=== PATIENT | male | born 1940 | race Caucasian/White ===

== ENCOUNTER 2019-03-06 00:05 | Inpatient (IN) | payer MEDICARE, OTHER, SELFPAY | END 2019-03-08 20:00 | disposition home health service (06) | DRG 872 | LOC: MEDSURG 03-08 09:00 | PROVIDERS: Admitting Provider Internal Medicine; Emergency Provider Emergency Medicine; Family Provider Family Medicine; PCP Family Medicine; Referring Provider Internal Medicine; Visit Provider Internal Medicine | DX: A41.9 Sepsis, unspecified organism (principal); N17.9 Acute kidney failure, unspecified; L03.116 Cellulitis of left lower limb; M86.8X7 Other osteomyelitis, ankle and foot; L03.115 Cellulitis of right lower limb; I10 Essential (primary) hypertension; I25.10 Atherosclerotic heart disease of native coronary artery without angina pectoris; Z95.5 Presence of coronary angioplasty implant and graft; Z79.02 Long term (current) use of antithrombotics/antiplatelets; Z79.82 Long term (current) use of aspirin; N40.0 Benign prostatic hyperplasia without lower urinary tract symptoms; E11.610 Type 2 diabetes mellitus with diabetic neuropathic arthropathy; E11.42 Type 2 diabetes mellitus with diabetic polyneuropathy; Z87.891 Personal history of nicotine dependence; E66.9 Obesity, unspecified; Z68.34 Body mass index [BMI] 34.0-34.9, adult ==

== ENCOUNTER 2019-06-02 09:27 | Outpatient (RCR) | payer MEDICARE, SELFPAY | END 2019-06-07 23:59 | disposition home or self-care (01) | LOC: WOUND 09:27 | PROVIDERS: Family Provider Family Medicine; PCP Family Medicine; Visit Provider Nurse Practitioner Family | DX: E11.621 Type 2 diabetes mellitus with foot ulcer (principal); L97.512 Non-pressure chronic ulcer of other part of right foot with fat layer exposed | CPT/HCPCS: 11042; 87070; 87077; 87176; 87186; 87205; 99203; 99214; G0463 ==

== ENCOUNTER 2019-07-07 08:46 | Outpatient (RCR) | payer MEDICARE, SELFPAY | END 2019-07-07 23:59 | disposition home or self-care (01) | LOC: WOUND 08:46 | PROVIDERS: Family Provider Family Medicine; PCP Family Medicine; Visit Provider Nurse Practitioner Family | DX: E11.621 Type 2 diabetes mellitus with foot ulcer (principal); L97.512 Non-pressure chronic ulcer of other part of right foot with fat layer exposed; E11.42 Type 2 diabetes mellitus with diabetic polyneuropathy; K21.9 Gastro-esophageal reflux disease without esophagitis; I25.10 Atherosclerotic heart disease of native coronary artery without angina pectoris; I10 Essential (primary) hypertension | CPT/HCPCS: 11042; 80053; 80061; 83036; 87070; 87077; 87186; 87205 ==

== ENCOUNTER 2019-07-14 08:52 | Outpatient (CLI) | payer MEDICARE, SELFPAY | END 2019-07-14 08:53 | disposition home or self-care (01) | LOC: WOUND 08:53 | PROVIDERS: Family Provider Family Medicine; PCP Family Medicine; Visit Provider Nurse Practitioner Family | DX: E11.621 Type 2 diabetes mellitus with foot ulcer (principal); L97.522 Non-pressure chronic ulcer of other part of left foot with fat layer exposed | CPT/HCPCS: 11042; G0463 ==

== ENCOUNTER 2019-07-21 09:59 | Outpatient (CLI) | payer MEDICARE, SELFPAY | END 2019-07-21 10:00 | disposition home or self-care (01) | LOC: WOUND 10:00 | PROVIDERS: Family Provider Family Medicine; PCP Family Medicine; Visit Provider Nurse Practitioner Family | DX: E11.621 Type 2 diabetes mellitus with foot ulcer (principal); L97.522 Non-pressure chronic ulcer of other part of left foot with fat layer exposed | CPT/HCPCS: G0463 ==

== ENCOUNTER 2019-08-04 08:55 | Outpatient (CLI) | payer MEDICARE, SELFPAY | END 2019-08-04 08:56 | disposition home or self-care (01) | LOC: WOUND 08:57 | PROVIDERS: Family Provider Family Medicine; PCP Family Medicine; Visit Provider Nurse Practitioner Family | DX: E11.621 Type 2 diabetes mellitus with foot ulcer (principal); L97.522 Non-pressure chronic ulcer of other part of left foot with fat layer exposed | CPT/HCPCS: 11042; 87070; 87077; 87176; 87186; 87205 ==

== ENCOUNTER 2019-08-12 09:31 | Outpatient (CLI) | payer MEDICARE, SELFPAY ==
--- NOTE | 2019-08-12 10:49 | XR_ITS ---
WS: [id number] XR foot LT min 3V* [id number] REASON FOR EXAM: PAIN,REDNESS, NONHEALING ULCER, R/O OSTEOMYELITIS FINDINGS: The left foot shows similar changes to the previous findings of March 07, 2019. There is marked reabsorptive changes throughout the tarsals metatarsals and phalanges with heavy arterioscler otic changes. Loss of the support changes of the foot are seen in the findings are consistent with no conrado diabetic neuropathy. Moderately advanced. XR/XR foot LT min 3V* [id number] IMPRESSION: Progressive diabetic neuropathy with reabsorptive changes and heavy arterioscle rotic changes.
== END 2019-08-12 09:32 | disposition home or self-care (01) ==
PROVIDERS: Family Provider Family Medicine; PCP Family Medicine; Visit Provider Nurse Practitioner Family
DX: E11.621 Type 2 diabetes mellitus with foot ulcer (principal); L97.522 Non-pressure chronic ulcer of other part of left foot with fat layer exposed
CPT/HCPCS: 11042; 73630

== ENCOUNTER 2019-08-18 14:01 | Outpatient (CLI) | payer MEDICARE, SELFPAY | END 2019-08-18 14:02 | disposition home or self-care (01) | LOC: WOUND 14:04 | PROVIDERS: Family Provider Family Medicine; PCP Family Medicine; Visit Provider Nurse Practitioner Family | DX: E11.621 Type 2 diabetes mellitus with foot ulcer (principal); L97.522 Non-pressure chronic ulcer of other part of left foot with fat layer exposed | CPT/HCPCS: 11042 ==

== ENCOUNTER 2019-08-23 08:20 | Outpatient (CLI) | payer MEDICARE, SELFPAY ==
--- NOTE | 2019-08-23 09:07 | MR_ITS ---
WS: [id number] INDICATION: Nonhealing ulcer TECHNIQUE: MRI of the left foot without and with gadolinium enhancement. Sagittal PD, axial T1, axial T2, axial STIR, sagittal STIR, sagittal T1, coronal PD, coronal T2 fat sat, and post gadolinium imag ing was obtained. FINDINGS: Comparison radiograph 08/2019. Nonhealing ulcer lateral foot. Diffuse soft tissue edema lower leg and foot worse involving the later al foot. Soft tissue ulceration is visualized with a vitamin E marker. Diffuse subcutaneous enhanceme nt consistent with cellulitis and reactive edema. No drainable abscess or fluid collection. Underlyin g cuboid is normal in appearance. Normal bone marrow signal in the cuboid. Small amount of edema in t he base of the fifth metatarsal with enhancement. Preservation of the normal fatty bone marrow signal . Findings are likely reactive. Early osteomyelitis is not entirely excluded. Otherwise no evidence o f osteomyelitis. Diffuse osteopenia. Diffuse soft tissue edema lower leg and foot subcutaneous soft tissues. Chronic d eformity consistent with Charcot joint involving the hindfoot is similar in appearance to prior exami nations. Fragmentation with flattening of the anterior calcaneus. Charcot joint with destruction of t he tibiotalar joint. Stable deformity of the talonavicular and tibiotalar articulations. Varus deform ity left foot. Plantar calcaneal spurring. MR/MR foot LT wo/w con [id number] IMPRESSION: 1. Soft tissue ulceration overlying the lateral foot at the level of the cuboi d and fifth metatarsal base. 2. Normal bone marrow signal in the cuboid. 3. Edema with a small amount of enhancement in the base of fifth metatarsal li mel reactive with preservation of the normal fatty bone marrow signal. Early o steomyelitis is not entirely excluded. Recommend interval follow-up. 4. No drainable abscess or fluid collection. 5. Diffuse cellulitis. 6. Charcot joint as described above.
== END 2019-08-23 08:21 | disposition home or self-care (01) ==
LOC: RADWPI 08:24
PROVIDERS: Family Provider Family Medicine; PCP Family Medicine; Visit Provider Surgery
DX: L97.429 Non-pressure chronic ulcer of left heel and midfoot with unspecified severity (principal); L03.116 Cellulitis of left lower limb; A52.16 Charcot's arthropathy (tabetic); R60.9 Edema, unspecified; M79.672 Pain in left foot
CPT/HCPCS: 73720; A9579

== ENCOUNTER → 2019-08-24 13:44 | Outpatient (BNVA) | payer MEDICARE, SELFPAY | PROVIDERS: Family Provider Family Medicine; PCP Family Medicine; Visit Provider Internal Medicine Cardiovascular Disease | DX: I10 Essential (primary) hypertension (principal); I25.10 Atherosclerotic heart disease of native coronary artery without angina pectoris | CPT/HCPCS: 80048; 83735; 83880 ==

== ENCOUNTER 2019-08-25 13:25 | Outpatient (CLI) | payer MEDICARE, SELFPAY | END 2019-08-25 13:26 | disposition home or self-care (01) | LOC: WOUND 13:28 | PROVIDERS: Family Provider Family Medicine; PCP Family Medicine; Visit Provider Nurse Practitioner Family | DX: E11.621 Type 2 diabetes mellitus with foot ulcer; L97.529 Non-pressure chronic ulcer of other part of left foot with unspecified severity | CPT/HCPCS: 87070; 87075; 87077; 87186; 87205; G0463 ==

== ENCOUNTER 2019-08-26 10:16 | Day surgery (SDC) | payer MEDICARE, SELFPAY ==
[2019-08-26 10:29] VITALS: BMI 31.6
[2019-08-26 10:41] VITALS: BP 148/81; PULSE 60; RESP 16; TEMP 36.7; O2SAT 97
--- NOTE | 2019-08-26 11:13 | P.ANESASSM_ITS ---
Pre-Anesthetic Assessment Pre-Anesthetic Assessment: Height/Weight: Height 1.85 m Weight 108.862 kg Temp Pulse Resp BP Pulse Ox 98.0 F 60 16 148/81 97 08/26/19 10:41 08/26/19 10:41 08/26/19 10:41 08/26/19 10:41 08/26/19 10:41 Preop Diagnosis: Osteomyelitis left fifth metatarsal Proposed Procedure: Operation Date: 08/26/19 12:25 Proposed Procedures p Incision And Drainage with bone biopsy with pic line insertion [id number] L97.524(Left) - Seferino Norman DPM Last intake: Intake Last Liquid Date 08/25/19 Last Liquid Time 21:00 Last Solid Date 08/25/19 Last Solid Time 18:00 Social: Social History: Tobacco (quit 38 years ago) and No alcohol Exam: Pre-Anes Outpt Exam: alert, oriented x 3, clear to auscultation bilaterally and regular rate & rhythm Airway: Submandibular: WNL Cervical ROM: WNL MP: 2 Dentition: P artials (upper and lower) History/ROS: No significant history except as noted Pulmonary: Pulmonary: None reported CV/HEM: CV/HEM: CAD (2015 stents), HTN and [place] : : None reported Hepatic: Hepatic: None reported GI: GI: GERD (controlled) Metabolic: Metabolic: DM, Hyperlipidemia and Morbid obesity Musc/skel: Musc/skel: None reported Neuropsych: Neuropsych: Neuropathy (hands and feet) Anesthetic Plan: ASA status: 4 Anesthesia: Anesthesia Evaluation and MAC Risk of > 500 ml blood loss (7ml/kg in children): No PFSH Anesthesia PFSH: Medical History BPH (benign prostatic hyperplasia) CAD (coronary artery disease) Charcot's arthropathy Diabetes GERD (gastroesophageal reflux disease) History of amputation of right great toe Hypertension Macular edema Obesity Peripheral neuropathy Renal insufficiency Surgical History H/O eye surgery History of cardiac cath History of coronary artery stent placement Family History Denies family history of Diabetes Dementia Anesthesia complication Cancer Social History Smoking and tobacco status: former smoker Quit status (tobacco): has quit using tobacco Second hand smoke exposure: No Smoking risk assessment/counseling performed?: No Alcohol intake: never Desire information about alcohol rehabilitation?: No Counseling given: No Desire information about substance/drug rehabilitation?: No Counseling given: No Caregiver/support person: Yes Lives independently: Yes Household members: spouse Current occupational status: retired and disabled Current gender identity: Male Data Anesthesia Cardiac Studies: No Data to Display
--- NOTE | 2019-08-26 11:31 | XR_ITS ---
WS: [id number] XR chest 1V portable [id number] REASON FOR EXAM: picc placement FINDINGS: PICC line placement shows a PICC line extending from the right side the tip is seen in the superior vena cava at the level of the fifth rib. The positioning appears to be satisfactory. There is arteriosclerotic changes in the arch of the aorta. The tip of the PICC line is slightly compressed and angulated. XR/XR chest 1V portable [id number] IMPRESSION: PICC line appears to be satisfactory placed in the superior vena cava.
--- NOTE | 2019-08-26 11:45 | ECG_ITS ---
[facility] Test Date: 2019-08-26 Pat Name: Marcus Thompson Department: Room: Gender: Male Sonar Technician: : 1940 Requested By: Jorge L Tong Order Number: [id number] Bhavani MD: Yaya Hanson M.D. Measurements Intervals [place] Rate: 51 P: 49 ID: [id number] QRS: 7 QRSD: 99 T: 18 QT: 452 QTc: 418 Interpretive Statements SINUS BRADYCARDIA Compared to ECG 07/12/2018 19:55:40 No significant changes Electronically Signed On 08-26-2019 13:07:39 CDT by Yaya Hanson M.D. [id number]
[2019-08-26] MEDS: sodium chloride 0.9% 1,000 ML 30 ML IV (12:30)
--- NOTE | 2019-08-26 12:54 | P.HPUD_ITS ---
Surgery/Procedure H&P Update DATE OF PROCEDURE: August 26, 2019 DATE H&P PERFORMED: 08/25/19 H&P UPDATE INFORMATION: I have reviewed H&P completed within last 30 days, I have examined patient prior to procedure, No changes to prior documentation and [place] is [place] [facility] indicated PREOP DIAGNOSIS: Osteomyelitis left fifth metatarsal PLANNED PROCEDURE: Operation Date: 08/26/19 12:25 Proposed Procedures p Incision And Drainage with bone biopsy with pic line insertion [id number] L97.524(Left) - Seferino Norman DPM
[2019-08-26] MEDS: clindamycin 600 MG/50 ML PREMIX 100 MG IV (13:08)
[2019-08-26 13:50] VITALS: BP 123/56; PULSE 49; RESP 18; TEMP 36.7; O2SAT 97
[2019-08-26 14:28] VITALS: BP 154/80; PULSE 62; RESP 18; O2SAT 98
--- NOTE | 2019-08-30 10:40 | P.OP_ITS ---
Operative Report Date of procedure: August 26, 2019 Pre-op Diagnosis: Osteomyelitis left fifth metatarsal Post-op diagnosis: same Post-op Findings: Devitalized soft tissue down to and including bone left foot. Procedure Done: Surgical debridement of left foot wound including epidermis, dermis, subcutaneous tissue, deep fascia and bone CPT code 13269. Bone biopsy left foot fifth metatarsal CPT code 43482 Implants: 3-0 Vicryl Specimens removed/disposition: Left fifth metatarsal base bone sent to microbiology for culture and sensitivity. Deep soft tissue including deep fascia sent to microbiology for culture and sensitivity. Pathology: none sent Surgeon: Seferino Norman D.P.M. Ready To W[employer] Department Manager: [place] Anesthesia: MAC Estimated blood loss: 10 cc Tourniquet time: No tourniquet utilized IV fluids: None Urine output: None Complications: None Findings: Full-thickness wound left foot exposed bone. Condition: stable Disposition: PACU Brief History: Mr. Thompson is a pleasant 79-year-old diabetic male with full- thickness wound left foot. He has Charcot arthropathy with arthrogryposis of the left foot. He developed a neuropathic ulcer at the area of the fifth metatarsal base left foot. Recommended debridement, biopsy, PICC line with IV antibiotics and offloading with wheelchair with decreased activities. Patient has history of previous wounds leading to partial amputation, history of osteomyelitis. Current wound at the left foot laterally is suspicious for osteomyelitis as it probes to bone, MRI also suspicious of early signs of osteomyelitis. Patient is agreeable and wishes to proceed. Risks include pain, bleeding, numbness, infection, damage to adjacent soft tissue structures, further deformity, failure to eradicate infection, need for IV antibiotics and surgical debridement, need for possible amputation. Patient wishes to Procedure: Under mild sedation the patient was brought to the operating room and placed on the operating table in supine position. A timeout was performed. Anesthesia was administered by the anesthesia service. Local anesthesia was injected by myself consisting of 20 cc of 0.5% Marcaine plain and a left reverse Sullivan block. Well-padded pneumatic tourniquet was applied to the left ankle this was not inflated or utilized throughout the duration of the procedure. Left low er extremity was scrubbed, prepped and draped utilizing normal aseptic technique. Attention was directed to the left lateral foot where a full-thickness ulceration was appreciated. Circumferential full-thickness incision was made to healthy tissue with a #15 blade and pickups, devitalized tissue passing the operative field. Wound was explored for depth did probe to the lateral aspect of the fifth metatarsal base. Wound was debrided of all nonviable epidermis, dermis, subcutaneous tissue, deep fascia, muscle tendon and bone. Incision site was flushed with copious amounts of sterile saline solution. Rondure was utilized to perform bone biopsy of the left fifth metatarsal this was sent to microbiology for Gram stain, culture and sensitivity. Further debridement was performed sharply no further devitalized tissue was appreciated. The incision site was flushed with copious amounts of sterile saline since solution. Deep subcutaneous tissue and deep fascia harvested for additional Gram stain and culture, this was sent to microbiology. A pulsatile bleeder was tied off with 3-0 Vicryl for hemostasis. Incision site was flushed again with sterile saline solution. This was dressed with saline wet to dry followed by application of Unna boot. Cam boot was applied. Patient tolerated the procedure well and was transferred to the PACU with vital signs stable and vascular status intact. Due to arthrogryposis and presence of wound exposed to bone patient instructed to be strict nonweightbearing at this time to the left lower extremity. A cam boot was applied. Patient received a PICC line per PICC line team during this encounter. Prescribed oral Zyvox, awaiting infectious disease recommendations as well as finalized cultures and bone biopsy to narrow or expand antibiotic therapy over the next 6 weeks. Patient will follow-up in wound care on Thursday 1:15 PM.
== END 2019-08-26 14:35 | disposition home or self-care (01) ==
PROVIDERS: PCP Family Medicine; Visit Provider Podiatrist Foot & Ankle Surgery
PROC: (CPT 11044; principal; 2019-08-26 12:25)
DX: M86.8X7 Other osteomyelitis, ankle and foot (principal); M14.672 Charcot's joint, left ankle and foot; M14.60 Charcot's joint, unspecified site; L97.524 Non-pressure chronic ulcer of other part of left foot with necrosis of bone; I25.10 Atherosclerotic heart disease of native coronary artery without angina pectoris; Z95.5 Presence of coronary angioplasty implant and graft; I10 Essential (primary) hypertension; I25.2 Old myocardial infarction; K21.9 Gastro-esophageal reflux disease without esophagitis; E78.5 Hyperlipidemia, unspecified; E66.01 Morbid (severe) obesity due to excess calories; Z68.31 Body mass index [BMI] 31.0-31.9, adult; N40.0 Benign prostatic hyperplasia without lower urinary tract symptoms; E11.42 Type 2 diabetes mellitus with diabetic polyneuropathy; Z87.891 Personal history of nicotine dependence; Z79.82 Long term (current) use of aspirin; Z79.4 Long term (current) use of insulin; E11.610 Type 2 diabetes mellitus with diabetic neuropathic arthropathy
CPT/HCPCS: 11044; 20240; 12345; 36569; 71045; 87070; 87077; 87176; 87186; 87205; 93005; 96365; J2704; J3490; J7030

== ENCOUNTER 2019-08-29 13:09 | Outpatient (CLI) | payer MEDICARE, SELFPAY | END 2019-08-29 13:10 | disposition home or self-care (01) | LOC: WOUND 13:13 | PROVIDERS: PCP Family Medicine; Visit Provider Nurse Practitioner Family | DX: E11.621 Type 2 diabetes mellitus with foot ulcer (principal); L97.522 Non-pressure chronic ulcer of other part of left foot with fat layer exposed | CPT/HCPCS: G0463 ==

== ENCOUNTER 2019-09-01 15:19 | Outpatient (CLI) | payer MEDICARE, SELFPAY | END 2019-09-01 15:20 | disposition home or self-care (01) | LOC: WOUND 15:21 | PROVIDERS: PCP Family Medicine; Visit Provider Nurse Practitioner Family | DX: E11.621 Type 2 diabetes mellitus with foot ulcer (principal); L97.522 Non-pressure chronic ulcer of other part of left foot with fat layer exposed | CPT/HCPCS: 11042 ==

== ENCOUNTER 2019-09-02 20:34 | Emergency (ER) | payer MEDICARE, SELFPAY ==
[2019-09-02 20:35] VITALS: BP 188/69; PULSE 67; RESP 18; TEMP 36.7; O2SAT 99; BMI 31.6
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
--- NOTE | 2019-09-02 20:58 | CTR_ITS ---
PROCEDURE INFORMATION: Exam: CT Head Without Contrast Exam date and time: 09/02/2019 9:06 PM Age: 79 years old Clinical indication: Injury or trauma; Fall; Initial encounter; Blunt trauma (contusions or hematomas); With loss of consciousness; Loss of consciousness for 30 minutes or less; Additional info: Fall injury TECHNIQUE: Imaging protocol: Computed tomography of the head without contrast. Sagittal and coronal reformatted images were created and reviewed. Radiation optimization: All CT scans at this facility use at least one of these dose optimization techniques: automated exposure control; mA and/or kV adjustment per patient size (includes targeted exams where dose is matched to clinical indication); or iterative reconstruction. COMPARISON: No relevant prior studies available. RADIATION DOSE METRICS: Total DLP (mGy-cm): 845.47 FINDINGS: Brain: No acute intracranial hemorrhage. No acute infarct. No intra-axial or extra-axial masses. Shah-white matter differentiation is preserved. No cerebral edema. No extra-axial fluid collections. No midline shift. No evidence for Chiari 1 malformation. Mild atrophy of the brain parenchyma. Mildly decreased attenuation in the deep white matter, consistent with mild chronic microangiopathic change. Focal area of decreased attenuation consistent with an old lacunar infarct in the left basal ganglia. Ventricles: No hydrocephalus. Bones/joints: Mild left deviation of the visualized nasal septum. Sinuses: Mild opacification within a posterior left ethmoid sinus. Other visualized paranasal sinuses are clear. Mastoid air cells: Mastoid air cells are clear bilaterally. Orbits: No acute abnormality in the visualized orbits. Vasculature: Atherosclerotic changes in the visualized arteries. Soft tissues: No acute abnormality of the extracranial soft tissues. CT/CT head wo con* [id number] IMPRESSION: 1. No acute abnormality of the brain. 2. Mild atrophy of the brain parenchyma. 3. Mild chronic white matter microangiopathic change. 4. Old lacunar infarct in the left basal ganglia. 5. Incidental/nonacute findings are listed in the report. Radiation Dose CTDIVOL = (mGy): DLP = 845.47 (mGy-cm)
[2019-09-02 22:27] VITALS: BP 156/82; PULSE 68; RESP 18; O2SAT 99
--- NOTE | 2019-09-02 22:30 | PC.NURSE ---
i agree with this assessment
== END 2019-09-02 22:30 | disposition home or self-care (01) ==
PROVIDERS: Emergency Provider Nurse Practitioner Family; PCP Family Medicine
DX: Z03.89 Encounter for observation for other suspected diseases and conditions ruled out (principal); Z79.02 Long term (current) use of antithrombotics/antiplatelets; Z79.82 Long term (current) use of aspirin; I25.10 Atherosclerotic heart disease of native coronary artery without angina pectoris; E11.9 Type 2 diabetes mellitus without complications; Z79.84 Long term (current) use of oral hypoglycemic drugs; I10 Essential (primary) hypertension; Z87.891 Personal history of nicotine dependence
CPT/HCPCS: 12345; 70450; 99281; 99282

== ENCOUNTER 2019-09-05 15:28 | Outpatient (CLI) | payer MEDICARE, SELFPAY | END 2019-09-05 15:29 | disposition home or self-care (01) | LOC: WOUND 15:29 | PROVIDERS: PCP Family Medicine; Visit Provider Nurse Practitioner Family | DX: Z51.89 Encounter for other specified aftercare (principal) | CPT/HCPCS: 29581 ==

== ENCOUNTER 2019-09-08 15:19 | Outpatient (CLI) | payer MEDICARE, SELFPAY | END 2019-09-08 15:20 | disposition home or self-care (01) | LOC: WOUND 15:20 | PROVIDERS: PCP Family Medicine; Visit Provider Nurse Practitioner Family | DX: E11.621 Type 2 diabetes mellitus with foot ulcer (principal); L97.522 Non-pressure chronic ulcer of other part of left foot with fat layer exposed | CPT/HCPCS: 11042 ==

== ENCOUNTER 2019-09-15 09:51 | Outpatient (CLI) | payer MEDICARE, SELFPAY | END 2019-09-15 09:52 | disposition home or self-care (01) | LOC: WOUND 09:55 | PROVIDERS: PCP Family Medicine; Visit Provider Surgery | DX: Z51.89 Encounter for other specified aftercare (principal) | CPT/HCPCS: 29581 ==

== ENCOUNTER 2019-09-22 09:38 | Outpatient (CLI) | payer MEDICARE, SELFPAY | END 2019-09-22 09:39 | disposition home or self-care (01) | LOC: WOUND 09:41 | PROVIDERS: PCP Family Medicine; Visit Provider Emergency Medicine | DX: E11.621 Type 2 diabetes mellitus with foot ulcer (principal); L97.522 Non-pressure chronic ulcer of other part of left foot with fat layer exposed | CPT/HCPCS: 11044; 80053 ==

== ENCOUNTER 2019-09-29 10:25 | Outpatient (CLI) | payer MEDICARE, SELFPAY | END 2019-09-29 10:26 | disposition home or self-care (01) | LOC: WOUND 10:32 | PROVIDERS: PCP Family Medicine; Visit Provider Nurse Practitioner Family | DX: E11.621 Type 2 diabetes mellitus with foot ulcer (principal); L97.522 Non-pressure chronic ulcer of other part of left foot with fat layer exposed | CPT/HCPCS: 11042 ==

== ENCOUNTER 2019-10-05 10:54 | Outpatient (CLI) | payer MEDICARE, SELFPAY ==
--- NOTE | 2019-10-05 | USCV_ITS ---
Marcus Thompson Age: 79 Gender: M : 1940 Exam Date: 10/05/2019 11:15 Ordering Phys: Leeanna Mcqueen DO Technologist: Dmitry Marsh Exam Location: [facility] [place] Indication: HISTORY: PROCEDURES: FINDINGS: There is no evidence of LEFT deep vein thrombosis. No evidence of superficial thrombosis in the LEFT saphenous system. Reflux noted in the left prox, mid, distal, and below knee. No other reflux noted at this time. No evidence of reflux was noted in the LEFT deep venous system. No venous reflux noted in the LEFT small saphenous vein. CONCLUSIONS No evidence of DVT in the above-mentioned identifiable veins. Significant venous reflux of greater than 500 ms( 1440- 3760 ms) were noted at the left proximal, mid, distal and below-knee greater saphenous vein segments. The venous segments where 0.51 to 0.57 cm in diameter and more than 1 cm deep from the surface, at these levels. The venous dimensions, depth from the surface and reflux times are as mentioned above. Dr Yves San MD [facility] (Electronically Signed) Final Date: 07 October 2019 00:27 S
== END 2019-10-05 10:55 | disposition home or self-care (01) ==
LOC: US 10:56
PROVIDERS: PCP Family Medicine; Visit Provider Emergency Medicine
DX: E11.621 Type 2 diabetes mellitus with foot ulcer (principal)
CPT/HCPCS: 93971

== ENCOUNTER 2019-10-06 09:29 | Outpatient (CLI) | payer MEDICARE, SELFPAY | END 2019-10-06 09:30 | disposition home or self-care (01) | LOC: WOUND 09:32 | PROVIDERS: PCP Family Medicine; Visit Provider Emergency Medicine | DX: E11.621 Type 2 diabetes mellitus with foot ulcer (principal); L97.522 Non-pressure chronic ulcer of other part of left foot with fat layer exposed | CPT/HCPCS: 11042 ==

== ENCOUNTER 2019-10-13 10:34 | Outpatient (CLI) | payer MEDICARE, SELFPAY | END 2019-10-13 10:35 | disposition home or self-care (01) | LOC: WOUND 10:35 | PROVIDERS: PCP Family Medicine; Visit Provider Thoracic Surgery (Cardiothoracic Vascular Surgery) | DX: E11.621 Type 2 diabetes mellitus with foot ulcer (principal); L97.522 Non-pressure chronic ulcer of other part of left foot with fat layer exposed; M14.672 Charcot's joint, left ankle and foot; M86.172 Other acute osteomyelitis, left ankle and foot | CPT/HCPCS: 99212 ==

== ENCOUNTER 2019-10-19 11:05 | Outpatient (CLI) | payer MEDICARE, SELFPAY ==
--- NOTE | 2019-10-19 11:11 | USCV_ITS ---
Marcus Thompson Age: 79 Gender: M : 1940 Exam Date: 10/19/2019 11:19 Ordering Phys: Leeanna Mcqueen DO Technologist: Dmitry Marsh [place] [facility] [place]: NON HEALING ULCER RIGHT LEFT Brachial 164.00 mmHg Brachial 163.00 mmHg Pressure (mmHg) Waveform Pressure (mmHg) Waveform ASSOCIATE VICE PRESIDENT 163.00 DPA 204.00 Pre-Exercise Toe Pressure 30.00 Pre-Exercise Toe/Brachial Index 0.18 FINDINGS Left below knee pressure >220 Supernormal resting MGAEN CONCLUSIONS Noncompressible vessels at the left ankle with abnormal resting TBI suggestive of possibly severe peripheral arterial disease involving the distal vessels Dr Yves San MD [facility] (Electronically Signed) Final Date: 20 October 2019 08:25 S
== END 2019-10-19 11:06 | disposition home or self-care (01) ==
LOC: RAD 11:09
PROVIDERS: PCP Family Medicine; Visit Provider Emergency Medicine
DX: M79.605 Pain in left leg (principal); L53.9 Erythematous condition, unspecified; L97.929 Non-pressure chronic ulcer of unspecified part of left lower leg with unspecified severity
CPT/HCPCS: 93922

== ENCOUNTER 2019-10-20 14:18 | Outpatient (CLI) | payer MEDICARE, SELFPAY | END 2019-10-20 14:19 | disposition home or self-care (01) | LOC: WOUND 14:18 | PROVIDERS: PCP Family Medicine; Visit Provider Nurse Practitioner Family | DX: E11.621 Type 2 diabetes mellitus with foot ulcer (principal); L97.422 Non-pressure chronic ulcer of left heel and midfoot with fat layer exposed | CPT/HCPCS: 11042 ==

== ENCOUNTER 2019-10-27 13:46 | Outpatient (CLI) | payer MEDICARE, SELFPAY | END 2019-10-27 13:47 | disposition home or self-care (01) | LOC: WOUND 13:48 | PROVIDERS: PCP Family Medicine; Visit Provider Emergency Medicine | DX: E11.621 Type 2 diabetes mellitus with foot ulcer (principal); L97.522 Non-pressure chronic ulcer of other part of left foot with fat layer exposed | CPT/HCPCS: 11042; 87070; 87077; 87176; 87186; 87205 ==

== ENCOUNTER 2019-11-03 14:15 | Outpatient (CLI) | payer MEDICARE, SELFPAY | END 2019-11-03 14:16 | disposition home or self-care (01) | LOC: WOUND 14:16 | PROVIDERS: PCP Family Medicine; Visit Provider Emergency Medicine | DX: E11.621 Type 2 diabetes mellitus with foot ulcer (principal); L97.522 Non-pressure chronic ulcer of other part of left foot with fat layer exposed | CPT/HCPCS: 11042 ==

== ENCOUNTER 2019-11-10 10:29 | Outpatient (CLI) | payer MEDICARE, SELFPAY ==
--- NOTE | 2019-11-10 11:00 | CT_ITS ---
WS: [id number] CTA ABDOMINAL AORTA WITH RUNOFF TECHNIQUE: Contrast enhanced CTA of the abdominal aorta with bilateral lower extremity runoff. Multip lanar reformatted images were obtained. MIP reformats were also reviewed. CLINICAL INFORMATION: non healing ulcer, PAD COMPARISON: None. DLP: 1718.[address] scans at [facility] use at least one of these dose optimization techniques: automat ed exposure control; mA and/or kV adjustment per patient size (includes targeted exams where dose is matched to clinical indication); or iterative reconstruction. FINDINGS: Normal caliber abdominal aorta. Moderate calcified atheromatous disease. Mild stenosis at t he celiac and SMA origins with calcified atheromatous disease. Moderate stenosis of both renal artery origins which remain patent. DEANNA is patent. Normal liver. Normal gallbladder. Normal spleen. Fatty atrophy of the pancreas. Adrenal glands are no rmal. Normal renal parenchymal mass. No hydronephrosis. Lung bases are well aerated. Sigmoid divertic ulosis. Prominent prostate measuring 4.9 CCM. Hypertrophic changes lumbar spine. RIGHT: Right common iliac artery is patent. Moderate stenosis at the right common iliac artery origi n measuring approximately 50-60%. Moderate calcified atheromatous disease. Right external and interna l iliac arteries are patent. Right common femoral artery is patent. Deep femoral artery is patent. [place] perficial femoral artery is patent. Popliteal artery is patent. Popliteal artery is patent to the tri furcation. Three-vessel runoff to the ankle with heavily calcified posterior tibial artery. LEFT: Mild stenosis left common iliac artery with heavily calcified atheromatous disease. Common quentin c artery is patent. External and internal iliac arteries are patent. Common femoral artery is patent. Deep femoral artery is patent. Superficial femoral artery is patent to the adductor hiatus. Poplitea l artery is patent to the trifurcation. Densely calcified calf vessels with subsegmental three-vessel runoff to the ankle. Diminutive peroneal artery. CT/CT angio abd aorta runof [id number] IMPRESSION: 1. Normal caliber abdominal aorta with moderate calcified atheromatous disease . 2. Moderate stenosis RIGHT common iliac artery origin measuring 50-60%. Right common femoral, superficial femoral, and popliteal arteries are patent. Densely calcified calf vessels with segmental three-vessel runoff to the right lower e xtremity. 3. Mild stenosis of the LEFT common iliac artery origin. Left common femoral, superficial femoral, and popliteal arteries are patent. Densely calcified calf arteries with three-vessel segmental runoff to the ankle.
[2019-11-10] MEDS: iodixanol 320 mg/mL 100mL Btl IV (11:08)
== END 2019-11-10 10:30 | disposition home or self-care (01) ==
LOC: RADWPI 10:33
PROVIDERS: PCP Family Medicine; Visit Provider Internal Medicine Cardiovascular Disease
DX: I73.9 Peripheral vascular disease, unspecified (principal); L98.499 Non-pressure chronic ulcer of skin of other sites with unspecified severity; I77.1 Stricture of artery
CPT/HCPCS: 75635; Q9967

== ENCOUNTER 2019-11-10 14:05 | Outpatient (RCR) | payer MEDICARE, SELFPAY | END 2019-12-07 23:59 | disposition home or self-care (01) | LOC: WOUND 14:05 | PROVIDERS: PCP Family Medicine; Visit Provider Emergency Medicine | DX: E11.621 Type 2 diabetes mellitus with foot ulcer (principal); L97.522 Non-pressure chronic ulcer of other part of left foot with fat layer exposed; I73.9 Peripheral vascular disease, unspecified; L98.499 Non-pressure chronic ulcer of skin of other sites with unspecified severity; I77.1 Stricture of artery | CPT/HCPCS: 11042; 75635; Q9967 ==

== ENCOUNTER 2019-11-17 09:31 | Outpatient (CLI) | payer MEDICARE, SELFPAY | END 2019-11-17 09:32 | disposition home or self-care (01) | LOC: WOUND 09:32 | PROVIDERS: PCP Family Medicine; Visit Provider Emergency Medicine | DX: E11.621 Type 2 diabetes mellitus with foot ulcer (principal); L97.522 Non-pressure chronic ulcer of other part of left foot with fat layer exposed | CPT/HCPCS: 11042 ==

== ENCOUNTER 2019-11-22 15:38 | Inpatient (IN) | payer MEDICARE, SELFPAY ==
[2019-11-22 15:55] VITALS: BP 153/71; PULSE 68; RESP 18; TEMP 39.3; O2SAT 94; BMI 31.6
[2019-11-22 16:37] LABS: Basophils % 0.1 %; Hematocrit 30.4 % (42.0-52.0); Lymphocytes # 0.8 10^3/uL (0.8-4.8); Lymphocytes % 7.5 %; Mean Corpuscular HGB Conc 32.9 g/dL (30.0-36.0); Mean Corpuscular Hemoglobin 30.3 pg (28.0-34.0); Mean Corpuscular Volume 92.1 fL (80-94); Mean Platelet Volume 11.6 fL (7.4-10.4); Monocytes # 1.8 10^3/uL (0.2-0.9); Monocytes % 15.9 %; Neutrophils # 8.36 10^3/uL (1.8-7.7); Nucleated Red Blood Cells % 0 %; Platelet Count 248 10^3/cmm (130-400); Red Cell Distribution Width 14.5 % (12.1-15.1)
--- NOTE | 2019-11-22 16:37 | ED_ITS ---
HPI - Fever General: Chief Complaint: Fever Stated Complaint: fever, L leg swelling/redness Time Seen by Provider: 11/22/19 16:09 Source: patient, family and old records reviewed History of Present Illness: HPI Narrative: 79-year-old male with Charcot joints presents to the emergency department with fever of 102.7 has had a fever that has improved over the last 3 days on and off with Tylenol. He was last seen at the wound care clinic last on November 16 and was doing well. He has not been on any antibiotics in at least a month. Our nurse practitioner on duty is actually at the wound care clinic as well and she was here so I brought her into see what his wound looks like compared to November 17, 2019. She states that he has known history of osteo-myelitis and was on oral Zyvox up until approximately a month ago. Wound looks red and angry but there is no migration of the erythema and the skin defect which is approximately half a centimeter on my exam looks unchanged with yellow discharge. Patient has fatigue and myalgia. Denies any shortness of breath or other reasons for his fever. No known COVID-19 exposure. No loss of taste or smell. He did have one episode of loose stool earlier today. Associated symptoms: Reports chills; Deny abdominal pain, chest pain, headache(s), nausea or vomiting Review of Systems General: Reports: 10 or more systems reviewed and unremarkable except in HPI and below Const: Reports: fever(s), chills and body aches Eyes: Denies: change in vision ENMT: Denies: throat pain Card: Denies: chest pain Resp: Denies: dyspnea GI: Denies: abdominal pain, nausea or vomiting Musc: Denies: muscle weakness Skin/Breast: Reports: lesions Neuro: Denies: headache(s) Psych: Denies: hopelessness or suicidal ideation Endo: Denies: polyuria Dick/Lymph: Denies: easy bruising or easy bleeding All/Imm: Denies: urticaria PFS ED PFSH: Medical History (Updated 11/22/19 @ 17:55 by Sylvia Caal MD) BPH (benign prostatic hyperplasia) CAD (coronary artery disease) Charcot's arthropathy Diabetes GERD (gastroesophageal reflux disease) History of amputation of right great toe Hypertension Macular edema Obesity PAD (peripheral artery disease) Peripheral neuropathy Renal insufficiency Surgical History H/O eye surgery History of cardiac cath History of coronary artery stent placement Family History Denies family history of Diabetes Dementia Anesthesia complication Cancer Social History Smoking and tobacco status: former smoker Quit status (tobacco): has quit using tobacco Second hand smoke exposure: No Smoking risk assessment/counseling performed?: No Alcohol intake: never Desire information about alcohol rehabilitation?: No Counseling given: No Desire information about substance/drug rehabilitation?: No Counseling given: No Caregiver/support person: Yes Lives independently: Yes Household members: spouse Current occupational status: retired and disabled Current gender identity: Male Physical Exam Const: COMMON NORMALS: no acute distress, patient oriented x3, alert and well nourished HENMT: COMMON NORMALS: normocephalic and Normal external nose present HEAD & SCALP: normocephalic NOSE: Normal external nose present MOUTH: no trismus Eye: COMMON NORMALS: EOMs intact bilaterally and conjunctivae normal CONJUNCTIVA: Yes conjunctivae normal Neck/C-Spine: COMMON NORMALS: full ROM, no lymphadenopathy and supple CERVICAL SPINE: Yes cervical ROM normal Lymph: LYMPHATIC: no lymphadenopathy noted Resp: COMMON NORMALS: normal respiratory effort, No retractions, No use of accessory muscles and clear to auscultation bilaterally EFFORT & INSPECTION: Yes able to speak in complete sentences AUSCULTATION: clear to auscultation bilaterally Cardio: COMMON NORMALS: regular rate and regular rhythm RATE: regular rate RHYTHM: regular rhythm GI: COMMON NORMALS: Normal to inspection, nondistended, normoactive bowel sounds present, Soft to palpation, non-tender and no masses INSPECTION: Yes normal to inspection AUSCULTATION: Yes normoactive bowel sounds PALPATION: Yes Soft to palpation, No Guarding due to palpation present (GI) and No Rigid due to palpation Back/Pelvis: OTHER: Normal range of motion Extremity: GENERAL: Yes normal exam except as noted OTHER: Patient had a boot in place and dressing that was removed. He has deformity of his foot consistent with Charcot joint. There is erythema and increased warmth above his ankle that encompasses his foot. As stated in the HPI this is definitely a change not in the pattern but in the amount of erythema and increased warmth per nurse practitioner who saw him in the wound clinic on and was able to pop in and take a look at his left lower extremity for me. He has approximately 0.5 cm open wound on the plantar surface of his foot with yellow drainage that is unchanged. Neuro: COMMON NORMALS: patient oriented x3 and CN's II-XII intact bilaterally SENSORIUM/ORIENTATION: Yes alert SPEECH: speech normal Psych: COMMON NORMALS: mental status grossly normal Skin: COMMON NORMALS: no rashes or lesions noted GENERAL SKIN EXAM: no rashes or lesions noted Course Vital Signs: Vital signs: Vital Signs Temperature 99.7 F H 11/22/19 18:15 Pulse Rate 68 11/22/19 15:55 Respiratory Rate 18 11/22/19 15:55 Blood Pressure 153/71 11/22/19 15:55 Pulse Oximetry 94 11/22/19 15:55 MDM - Fever MDM Narrative: Medical decision making narrative: 79-year-old male with Charcot joint with fever for the last 3 days and change today and the appearance of his affected joint which is left lower extremity. See HPI for more information if needed. IV Zyvox ordered patient is not septic but will need admission for IV antibiotics. [address] Frederick will admit Lab Data: Attestation: I reviewed the patient's lab results. Labs: Lab Results 11/22/19 11/22/19 11/22/19 Range/Units 16:29 16:29 16:29 WBC 11.0 H (4.0-10.0) 10^3/ uL RBC 3.30 L (4.1-5.3) 10^6/u L Hgb 10.0 L (11.7-16.6) g/dL Hct 30.4 L (42.0-52.0) % MCV 92.1 (80-94) fL MCH 30.3 (28.0-34.0) pg MCHC 32.9 (30.0-36.0) g/dL RDW 14.5 (12.1-15.1) % Plt Count 248 (130-400) 10^3/c mm MPV 11.6 H (7.4-10.4) fL Neut % (Auto) 76.0 % Lymph % (Auto) 7.5 % [place] % (Auto) 15.9 % Eos % (Auto) 0.0 % Baso % (Auto) 0.1 % Neut # (Auto) 8.36 H (1.8-7.7) 10^3/u L Lymph # (Auto) 0.8 (0.8-4.8) 10^3/u L [place] # (Auto) 1.8 H (0.2-0.9) 10^3/u L Eos # (Auto) 0.0 (0.0-0.8) 10^3/u L Baso # (Auto) 0.0 (0.0-0.1) 10^3/u L Nucleated RBC % (a uto) 0 % Nucleated RBCs # 0.0 /100WBC Sodium 131 L (136-145) mmol/L Potassium 4.1 (3.5-5.1) mmol/L Chloride 97 L (98-107) mmol/L Carbon Dioxide 22 (22-29) mmol/L Anion Gap 16.1 (5-19) BUN 20 (8-23) mg/dL Creatinine 1.3 H (0.7-1.2) mg/dL GFR Calculation Not Reportable Glucose 172 H (65-115) mg/dL Calculated Osmolal ity 273 L (285-295) mOsm/k g Lactic Acid 1.4 (0.5-2.2) mmol/L Calcium 8.4 L (8.5-10.5) mg/dL Total Bilirubin 0.3 (0.15-1.2) mg/dL AST 50 H (0-40) U/L ALT 57 H (0-41) U/L Alkaline Phosphata se 53 (40-130) IU/L Total Protein 6.9 (6.6-8.7) g/dL Albumin 3.0 L (3.5-5.2) g/dL Globulin 3.9 (1.3-4.6) g/dL Urine Color (Yellow) Urine Appearance (CLEAR) Urine pH (5-7) Ur Specific Gravit y (1.005-1.030) Urine Protein (Negative) Urine Glucose (UA) (Normal) Urine Ketones (Negative) Urine Blood (Negative) Urine Nitrate (Negative) Urine Bilirubin (Negative) Urine Urobilinogen (Negative) mg/dL Ur Leukocyte Lyndsay ase (Negative) Urine RBC (0-2) /hpf Urine WBC (0-5) /hpf Ur Squamous Epith Cells (0-5) /hpf Amorphous Sediment Urine Bacteria (NONE) /hpf Urine Mucus /hpf 11/22/19 Range/Units 17:50 WBC (4.0-10.0) 10^3/ uL RBC (4.1-5.3) 10^6/u L Hgb (11.7-16.6) g/dL Hct (42.0-52.0) % MCV (80-94) fL MCH (28.0-34.0) pg MCHC (30.0-36.0) g/dL RDW (12.1-15.1) % Plt Count (130-400) 10^3/c mm MPV (7.4-10.4) fL Neut % (Auto) % Lymph % (Auto) % [place] % (Auto) % Eos % (Auto) % Baso % (Auto) % Neut # (Auto) (1.8-7.7) 10^3/u L Lymph # (Auto) (0.8-4.8) 10^3/u L [place] # (Auto) (0.2-0.9) 10^3/u L Eos # (Auto) (0.0-0.8) 10^3/u L Baso # (Auto) (0.0-0.1) 10^3/u L Nucleated RBC % (a uto) % Nucleated RBCs # /100WBC Sodium (136-145) mmol/L Potassium (3.5-5.1) mmol/L Chloride (98-107) mmol/L Carbon Dioxide (22-29) mmol/L Anion Gap (5-19) BUN (8-23) mg/dL Creatinine (0.7-1.2) mg/dL GFR Calculation Glucose (65-115) mg/dL Calculated Osmolal ity (285-295) mOsm/k g Lactic Acid (0.5-2.2) mmol/L Calcium (8.5-10.5) mg/dL Total Bilirubin (0.15-1.2) mg/dL AST (0-40) U/L ALT (0-41) U/L Alkaline Phosphata se (40-130) IU/L Total Protein (6.6-8.7) g/dL Albumin (3.5-5.2) g/dL Globulin (1.3-4.6) g/dL Urine Color Yellow (Yellow) Urine Appearance Clear (CLEAR) Urine pH 5 (5-7) Ur Specific Gravit y 1.020 (1.005-1.030) Urine Protein 3+ H (Negative) Urine Glucose (UA) Norm (Normal) Urine Ketones Negative (Negative) Urine Blood Trace H (Negative) Urine Nitrate Negative (Negative) Urine Bilirubin Neg (Negative) Urine Urobilinogen Neg (Negative) mg/dL Ur Leukocyte Lyndsay ase Negative (Negative) Urine RBC None (0-2) /hpf Urine WBC None (0-5) /hpf Ur Squamous Epith Cells 0-4 H (0-5) /hpf Amorphous Sediment Not Reportable Urine Bacteria Y (NONE) /hpf Urine Mucus 2+ /hpf Discharge Plan Discharge Patient Disposition: Admitted As Inpatient Admit Provider: Charissa Frederick Clinical Impression: Charcot-Cecy disease Cellulitis Qualifiers: Site of cellulitis: extremity Site of cellulitis of extremity: lower extremity Laterality: left Qualified Code(s): L03.116 - Cellulitis of left lower limb Condition: Stable Referrals: Angie Zarate MD [Primary Care Provider] - Coding Level of Care Code ED Manager Utilization Management for [facility] Fwd Exam Comprehensive
[2019-11-22] MEDS: sodium chloride 0.9% 500 ML 999 ML IV (17:00)
[2019-11-22 17:09] LABS: Lactic Sepsis W/Reflex 1.4 mmol/L (0.5-2.2)
[2019-11-22 17:10] LABS: Alanine Aminotransferase 57 U/L (0-41); Alkaline Phosphatase 53 IU/L (40-130); Anion Gap 16.1 (5-19); Aspartate Amino Transferase 50 U/L (0-40); Blood Urea Nitrogen 20 mg/dL (8-23); Calcium 8.4 mg/dL (8.5-10.5); Carbon Dioxide 22 mmol/L (22-29); Chloride 97 mmol/L (98-107); Globulin 3.9 g/dL (1.3-4.6); Glucose 172 mg/dL (65-115); Osmolality Calculated 273 mOsm/kg (285-295); Potassium 4.1 mmol/L (3.5-5.1); Sodium 131 mmol/L (136-145); Total Bilirubin 0.3 mg/dL (0.15-1.2); Total Protein 6.9 g/dL (6.6-8.7)
[2019-11-22] MEDS: acetaminophen 500 mg Tablet 1000 MG PO (17:29)
[2019-11-22] MEDS: linezolid premix 600 MG/300 ML PREMIX 300 MG IV (17:52)
[2019-11-22 18:15] VITALS: TEMP 37.6
[2019-11-22 18:42] LABS: Add Urine Microscopic? YES; Bilirubin Urine Neg (Negative); Blood Urine Trace (Negative); Glucose Urine UA Norm (Normal); Ketones Urine Negative (Negative); Leukocyte Esterase Urine Negative (Negative); Nitrate Urine Negative (Negative); Protein Urine 3+ (Negative); Urine Appearance Clear (CLEAR); Urine Color Yellow (Yellow); Urobilinogen Urine Neg (Negative); pH Urine 5 (5-7)
[2019-11-22 18:51] LABS: Add Urine Culture? No; Bacteria Urine Y /hpf; Mucus Urine 2+ /hpf; Squamous Epithelial Cell Urine 0-4 /hpf (0-5)
--- NOTE | 2019-11-22 18:54 | XR_ITS ---
WS: [id number] EXAM: AP CHEST: PORTABLE UPRIGHT DATE OF EXAM: 11/22/2019, 1933 hours COMPARISON: Chest x-ray from 08/26/2019 HISTORY: Patient is 79 years old with follow-up pneumonia. FINDINGS: The cardiac silhouette is slightly enlarged but similar. The mediastinal contours are slightly dis torted secondary to apical lordotic positioning. The pulmonary vascularity is normal. The lungs ar e clear of infiltrate. There is no effusion or pneumothorax. No acute bony abnormality is seen. Ri ght-sided PICC line has been removed in the interim. XR/XR chest 1V portable [id number] IMPRESSION: No acute pulmonary disease.
--- NOTE | 2019-11-22 18:59 | PM.HP ---
Providers/Chief Complaint Admitting Physician: Charissa Frederick MD Primary Care Provider: Angie Zarate MD Chief Complaint: left foot wound check History of Present Illness Marcus Thompson is a 79 year old male with PMH BPH, CAD, Charcot's arthropathy, Diabetes, GERD, HTN, peripheral neuropathy and PAD who has been having a chronic LLE wound with open ulcer over lateal aspect of the foot presenting todya with fever up to 102F, increasing swelling and warmth around deb site of ulceration. Due to concerns for cellulitis, he was sent to ER for admission. ROS+ for dry cough , 3 daays of fever 2-3 episodes of diarrhea. No known COVID exposure Review of Systems General: Reports: 10 or more systems reviewed and unremarkable except in HPI and below Const: Denies: fever(s), chills or body aches Eyes: Denies: change in vision, blurry vision or photophobia ENMT: Reports: hoarseness; Denies: throat pain, enlarged tonsils, odynophagia or nasal congestion Card: Denies: chest pain, palpitations, irregular heart rhythm, edema, swelling of feet/ankles, lightheadedness, pre-syncope, dyspnea on exertion or orthopnea Resp: Denies: dyspnea, productive cough, non-productive cough, wheezing, stridor, pain on inspiration, change in phlegm color, hemoptysis or chest congestion GI: Denies: abdominal pain, nausea, vomiting, hematemesis, coffee ground emesis, dysphagia, heartburn, diarrhea, constipation, GI cramping, change in stool character, hematochezia or melena : Denies: flank pain, dysuria, urinary frequency, urinary urgency, urinary hesitancy or hematuria Musc: Denies: neck pain, back pain, extremity pain, joint swelling, joint warmth or deformity Neuro: Denies: headache(s), numbness in extremities, weakness in extremities, sensory changes, difficulty walking, frequent falls, dizziness, vertigo, behavioral changes, Slurred speech present or seizure-like activity Psych: Denies: anxiety, depression, suicidal ideation or homicidal ideation Endo: Denies: polyuria, polydipsia, tired all the time, cold intolerance or hot flashes Dick/Lymph: Denies: easy bruising or easy bleeding Medications/Allergies Home Medications Medication Instructions Recorded Confirmed Last Taken Type aspirin 81 mg tablet,delayed 81 mg PO DAILY 03/15/19 11/22/19 11/22/19 History release cholecalciferol (vitamin D3) 25 1,000 unit PO .COMPLEX 03/15/19 11/22/19 11/21/19 History mcg (1,000 unit) capsule blood sugar diagnostic #100 each 04/21/19 11/22/19 Unknown Rx lancets 33 gauge #100 each 05/03/19 11/22/19 Unknown Rx clopidogrel 75 mg tablet 75 mg PO DAILY 90 Days #90 tab 06/19/19 11/22/19 11/22/19 Rx pantoprazole 40 mg tablet,delayed 40 mg PO DAILY 90 Days #90 tab 08/12/19 11/22/19 11/22/19 Rx release amlodipine 10 mg-benazepril 40 mg 1 cap PO DAILY #90 cap 11/01/19 11/22/19 11/21/19 Rx capsule hydralazine 100 mg tablet 100 mg PO TID 90 Days #270 tab 11/01/19 11/22/19 11/22/19 Rx spironolactone 25 1 tab PO DAILY #90 tab 11/01/19 11/22/19 11/22/19 Rx mg-hydrochlorothiazide 25 mg tablet glipizide 10 mg PO BID 11/22/19 11/22/19 11/22/19 History tamsulosin 0.4 mg capsule 0.4 mg PO DAILY #90 cap 11/22/19 11/22/19 11/22/19 Rx Allergies Allergy/AdvReac Type Severity Reaction Status Date / Time Penicillins Allergy Unknown Verified 11/22/19 16:28 PFSH Acute PFSH: Medical History BPH (benign prostatic hyperplasia) CAD (coronary artery disease) Charcot's arthropathy Diabetes GERD (gastroesophageal reflux disease) History of amputation of right great toe Hypertension Macular edema Obesity PAD (peripheral artery disease) Peripheral neuropathy Renal insufficiency Surgical History H/O eye surgery History of cardiac cath History of coronary artery stent placement Family History Denies family history of Diabetes Dementia Anesthesia complication Cancer Social History Smoking and tobacco status: former smoker Quit status (tobacco): has quit using tobacco Second hand smoke exposure: No Smoking risk assessment/counseling performed?: No Alcohol intake: never Desire information about alcohol rehabilitation?: No Counseling given: No Desire information about substance/drug rehabilitation?: No Counseling given: No Caregiver/support person: Yes Lives independently: Yes Household members: spouse Current occupational status: retired and disabled Current gender identity: Male Vitals/I&O/Wt Last Vital Signs Temp 99.7 F H 11/22/19 18:15 Pulse 68 11/22/19 15:55 Resp 18 11/22/19 15:55 BP 153/71 11/22/19 15:55 Pulse Ox 94 11/22/19 15:55 Weight last 48 hrs Weight 108.862 kg Physical Exam Narrative: EXAM NARRATIVE: GEN: Awake, alert and oriented, no acute distress CVS: S1S2 N RS: CTA B/L Abd: Soft, nt/nd , bs+ DISTRICT LOSS PREVENTION MANAGER: no focal neuro deficits ext: changes of celulitis around ulcer over left foot Data : 11/22/19 16:29 11/22/19 16:29 Micro: Microbiology 11/22/19 16:29 Blood Culture - Preliminary Blood SPECIMEN COLLECTED 11/22/19 16:25 Blood Culture - Preliminary Blood SPECIMEN COLLECTED A&P Assessment and plan (1) Cellulitis: Status: Acute Qualifiers: Laterality: left Site of cellulitis: extremity Site of cellulitis of extremity: lower extremity Qualified Code(s): L03.116 - Cellulitis of left lower limb (2) Charcot-Cecy disease: Status: Acute (3) PAD (peripheral artery disease): Status: Acute (4) Non-pressure chronic ulcer of other part of left foot with necrosis of bone: Status: Acute (5) Diabetes: Status: Acute (6) CAD (coronary artery disease): Status: Acute Qualifiers: Coronary Disease-Associated Artery/Lesion type: [place] artery [place] vs. transplanted heart: [place] heart Associated angina: without angina Qualified Code(s): I25.10 - Atherosclerotic heart disease of [place] coronary artery without angina pectoris (7) Non-pressure chronic ulcer of left heel and midfoot with fat layer exposed: Status: Acute (8) Diabetic peripheral neuropathy associated with type 2 diabetes mellitus: Status: Acute Additional A&P Information # Admit to med/surg # Cellulitis Sstart empiric abx treatment with cefepime and vancomycin check blood cx check CXR Covid rapid antigen given cough and fever Hold Plavix in case OR procudres or debridement needed Podiatry consult in morning check C diff, patient was reecently on po linezolid # DM: insulin sliding scale for now # HTN: continue home medications except HCTZ for now Full code DVT ppx: lovenox Attestations Medical Necessity Statement*: >2midnight admission for management of cellulitis, iv antibiotics Coding Level of Care Code Acute Wheel And Axle Inspector for [facility] Fw Diagnoses Cellulitis L03.116 Laterality: left Site of cellulitis: extremity Site of cellulitis of extremity: lower extremity Charcot-Cecy disease G60.0 PAD (peripheral artery disease) I73.9 Non-pressure chronic ulcer of other part of left foot with necrosis of bone L97.524 Diabetes E11.9 CAD (coronary artery disease) I25.10 Coronary Disease-Associated Artery/Lesion type: [place] artery [place] vs. transplanted heart: [place]une heart Associated angina: without angina Non-pressure chronic ulcer of left heel and midfoot with fat layer exposed L97.422 Diabetic peripheral neuropathy associated with type 2 diabetes mellitus E11.42
[2019-11-22 19:58] LABS: Lactic Sepsis W/Reflex 0.8 mmol/L (0.5-2.2)
[2019-11-22 20:00] VITALS: BP 130/64; PULSE 54; RESP 18; TEMP 36.6; O2SAT 94
[2019-11-22 20:07] VITALS: BP 112/42; PULSE 50; RESP 164; O2SAT 90
[2019-11-22 21:40] LABS: Glucose Point of Care 136 mg/dL (70-110)
[2019-11-22 22:50] LABS: SARS Covid-2 Antigen Negative (Negative)
[2019-11-22] MEDS: cefepime 2,000 MG in sodium chloride 0.9% (plus) 50 ML 100 MG IV (23:08)
[2019-11-23] VITALS (8 sets, daily range): BP systolic 112–163; BP diastolic 45–69; PULSE 58–96; RESP 18–22; TEMP 36.9–37.7; O2SAT 93–97
[2019-11-23 05:20] LABS: Basophils % 0.2 %; Eosinophils % 0.1 %; Hemoglobin 9.7 g/dL (11.7-16.6); Lymphocytes # 0.8 10^3/uL (0.8-4.8); Lymphocytes % 8.3 %; Mean Corpuscular HGB Conc 32.3 g/dL (30.0-36.0); Mean Corpuscular Hemoglobin 29.8 pg (28.0-34.0); Mean Platelet Volume 12.3 fL (7.4-10.4); Monocytes # 1.5 10^3/uL (0.2-0.9); Monocytes % 14.9 %; Neutrophils # 7.63 10^3/uL (1.8-7.7); Neutrophils % 76.1 %; Nucleated Red Blood Cells % 0 %; Platelet Count 216 10^3/cmm (130-400); Red Blood Count 3.26 10^6/uL (4.1-5.3); Red Cell Distribution Width 14.2 % (12.1-15.1)
[2019-11-23 05:54] LABS: Alanine Aminotransferase 42 U/L (0-41); Albumin Level 2.6 g/dL (3.5-5.2); Alkaline Phosphatase 49 IU/L (40-130); Anion Gap 15.9 (5-19); Aspartate Amino Transferase 33 U/L (0-40); Blood Urea Nitrogen 18 mg/dL (8-23); Calcium 8.3 mg/dL (8.5-10.5); Carbon Dioxide 22 mmol/L (22-29); Chloride 100 mmol/L (98-107); Globulin 3.8 g/dL (1.3-4.6); Glucose 127 mg/dL (65-115); Osmolality Calculated 276 mOsm/kg (285-295); Potassium 3.9 mmol/L (3.5-5.1); Sodium 134 mmol/L (136-145); Total Bilirubin 0.4 mg/dL (0.15-1.2); Total Protein 6.4 g/dL (6.6-8.7)
[2019-11-23 06:39] LABS: Glucose Point of Care 125 mg/dL (70-110)
[2019-11-23] MEDS: pantoprazole DR 40 mg Tablet PO (09:43)
[2019-11-23] MEDS: tamsulosin 0.4 mg Capsule PO (09:43)
[2019-11-23] MEDS: lisinopril 20 mg Tablet 40 MG PO (09:44)
[2019-11-23] MEDS: hyDRALAzine 50 mg Tablet 100 MG PO ×3 (09:44→21:39)
[2019-11-23] MEDS: aspirin 81 mg EC Tablet PO (09:45)
[2019-11-23] MEDS: amlodipine 10 mg Tablet PO (09:45)
[2019-11-23 10:28] LABS: Glucose Point of Care 126 mg/dL (70-110)
[2019-11-23] MEDS: cefepime 2,000 MG in sodium chloride 0.9% (plus) 50 ML 100 MG IV ×2 (15:16→22:59)
--- NOTE | 2019-11-23 15:18 | PC.NURSE ---
1000 Cefepime administered at 1430 d/t initially pharmacy delay then nurse in other pt's room for multiple stat labs when med arrived.
[2019-11-23 16:58] LABS: Glucose Point of Care 205 mg/dL (70-110)
--- NOTE | 2019-11-23 17:50 | PM.PN ---
Subjective Subjective: Interval history: No acute overnight events. Fever curve is improving. T-max is 99. Cellulitis of her leg appears to be improving. Complains of discharge from Dr. Norman's office from August, the also has been chronic, no significant improvement after an extended course of IV antibiotics. Patient also noted to have some degree of vascular disease on the left side for which she recently followed with cardiology. Medications: Reviewed: Yes Vitals/I&O/Wt Last Vital Signs Temp 99.9 F H 11/23/19 16:46 Pulse 66 11/23/19 16:46 Resp 22 H 11/23/19 16:46 BP 126/54 11/23/19 16:46 Pulse Ox 93 11/23/19 16:46 11/23/19 11/23/19 11/23/19 06:59 14:59 22:59 Intake Total 550 / 1350 240 / 240 Output Total 750 / 750 300 / 300 Balance -200 / 600 -300 / -300 240 / -60 Weight last 48 hrs Weight 108.862 kg Physical Exam Narrative: EXAM NARRATIVE: GEN: Awake, alert and oriented, no acute distress CVS: S1S2 N RS: CTA B/L Abd: Soft, nt/nd , bs+ ACCOUNT SERVICES COORDINATOR: no focal neuro deficits ext: changes of celulitis around ulcer over left foot Data : 11/23/19 04:38 11/23/19 04:38 Micro: Microbiology 11/22/19 16:25 Blood Culture - Preliminary Blood NEGATIVE TO DATE 11/22/19 16:29 Blood Culture - Preliminary Blood NEGATIVE TO DATE A&P Assessment and plan (1) Cellulitis: Status: Acute Qualifiers: Laterality: left Site of cellulitis: extremity Site of cellulitis of extremity: lower extremity Qualified Code(s): L03.116 - Cellulitis of left lower limb (2) Charcot-Cecy disease: Status: Acute (3) PAD (peripheral artery disease): Status: Acute (4) Non-pressure chronic ulcer of other part of left foot with necrosis of bone: Status: Acute (5) Diabetes: Status: Acute (6) CAD (coronary artery disease): Status: Acute Qualifiers: Coronary Disease-Associated Artery/Lesion type: [place] artery [place] vs. transplanted heart: jackson heart Associated angina: without angina Qualified Code(s): I25.10 - Atherosclerotic heart disease of [place] coronary artery without angina pectoris (7) Non-pressure chronic ulcer of left heel and midfoot with fat layer exposed: Status: Acute (8) Diabetic peripheral neuropathy associated with type 2 diabetes mellitus: Status: Acute Additional A&P Information # Cellulitis Continue empiric abx treatment with cefepime and vancomycin , cellulitis appears to be improving today. check blood cx negative thus far CXR without any evidence of consolidation. Covid rapid antigen negative Dr. Norman will be away from the hospital for the next 10 days, since patient does not require any acute surgical intervention at this time, will plan for discharge on a course of antibiotics with follow-up with Dr. Norman in the office. # DM: insulin sliding scale for now # HTN: continue home medications except HCTZ for now Full code DVT ppx: lovenox Attestations Medical Necessity Statement*: Cellulitis is improving, ongoing need for IV antibiotics, high risk of progression given extensive burden of vascular disease and Charcot joint. Coding Level of Care Code Acute Pre Certification Specialist for [facility] Fwd Diagnoses Cellulitis L03.116 Laterality: left Site of cellulitis: extremity Site of cellulitis of extremity: lower extremity Charcot-Cecy disease G60.0 PAD (peripheral artery disease) I73.9 Non-pressure chronic ulcer of other part of left foot with necrosis of bone L97.524 Diabetes E11.9 CAD (coronary artery disease) I25.10 Coronary Disease-Associated Artery/Lesion type: [place] artery [place] vs. transplanted heart: jackson heart Associated angina: without angina Non-pressure chronic ulcer of left heel and midfoot with fat layer exposed L97.422 Diabetic peripheral neuropathy associated with type 2 diabetes mellitus E11.42
[2019-11-23 20:54] LABS: Glucose Point of Care 175 mg/dL (70-110)
[2019-11-24] VITALS: BP 136/55; PULSE 63; RESP 18; TEMP 36.4; O2SAT 96
[2019-11-24 04:00] VITALS: BP 131/64; PULSE 55; RESP 18; TEMP 37.1; O2SAT 98
[2019-11-24 06:06] LABS: Basophils % 0.2 %; Eosinophils # 0.1 10^3/uL (0.0-0.8); Eosinophils % 1.1 %; Hematocrit 28.6 % (42.0-52.0); Hemoglobin 9.4 g/dL (11.7-16.6); Lymphocytes % 12.1 %; Mean Corpuscular HGB Conc 32.9 g/dL (30.0-36.0); Mean Corpuscular Hemoglobin 30.4 pg (28.0-34.0); Mean Corpuscular Volume 92.6 fL (80-94); Mean Platelet Volume 12.5 fL (7.4-10.4); Monocytes # 1.1 10^3/uL (0.2-0.9); Monocytes % 12.4 %; Neutrophils # 6.26 10^3/uL (1.8-7.7); Neutrophils % 73.6 %; Nucleated Red Blood Cells % 0 %; Platelet Count 217 10^3/cmm (130-400); Red Blood Count 3.09 10^6/uL (4.1-5.3); Red Cell Distribution Width 14.4 % (12.1-15.1); White Blood Count 8.5 10^3/uL (4.0-10.0)
[2019-11-24 06:33] LABS: Alanine Aminotransferase 91 U/L (0-41); Albumin Level 2.4 g/dL (3.5-5.2); Alkaline Phosphatase 60 IU/L (40-130); Anion Gap 14.9 (5-19); Aspartate Amino Transferase 89 U/L (0-40); Blood Urea Nitrogen 23 mg/dL (8-23); Calcium 8.2 mg/dL (8.5-10.5); Carbon Dioxide 19 mmol/L (22-29); Chloride 102 mmol/L (98-107); Globulin 3.9 g/dL (1.3-4.6); Glucose 124 mg/dL (65-115); Osmolality Calculated 279 mOsm/kg (285-295); Potassium 3.9 mmol/L (3.5-5.1); Sodium 132 mmol/L (136-145); Total Bilirubin 0.3 mg/dL (0.15-1.2); Total Protein 6.3 g/dL (6.6-8.7)
[2019-11-24 06:55] LABS: Glucose Point of Care 132 mg/dL (70-110)
[2019-11-24 08:00] VITALS: BP 140/58; PULSE 52; RESP 16; TEMP 36.7; O2SAT 98
[2019-11-24 09:43] LABS: Vancomycin Trough 15.7 ug/mL (10-15)
[2019-11-24] MEDS: hyDRALAzine 50 mg Tablet 100 MG PO ×3 (10:45→20:43)
[2019-11-24] MEDS: aspirin 81 mg EC Tablet PO (10:45)
[2019-11-24] MEDS: tamsulosin 0.4 mg Capsule PO (10:45)
[2019-11-24] MEDS: amlodipine 10 mg Tablet PO (10:48)
[2019-11-24] MEDS: pantoprazole DR 40 mg Tablet PO (10:48)
[2019-11-24] MEDS: lisinopril 20 mg Tablet 40 MG PO (10:48)
[2019-11-24] MEDS: cefepime 2,000 MG in sodium chloride 0.9% (plus) 50 ML 100 MG IV ×2 (11:57→21:53)
[2019-11-24 11:59] VITALS: BP 131/62; PULSE 58; RESP 16; TEMP 36.7; O2SAT 95
[2019-11-24 13:07] LABS: Glucose Point of Care 257 mg/dL (70-110)
[2019-11-24 16:00] VITALS: BP 149/60; PULSE 60; RESP 17; TEMP 37.2; O2SAT 97
--- NOTE | 2019-11-24 18:05 | P.PN_ITS ---
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 ext: changes of celulitis around ulcer over left foot Data : 11/24/19 04:23 11/24/19 04:23 Micro: Microbiology 11/22/19 16:25 Blood Culture - Preliminary Blood NEGATIVE TO DATE 11/22/19 16:29 Blood Culture - Preliminary Blood NEGATIVE TO DATE A&P Assessment and plan (1) Cellulitis: Status: Acute Qualifiers: Laterality: left Site of cellulitis: extremity Site of cellulitis of extremity: lower extremity Qualified Code(s): L03.116 - Cellulitis of left lower limb (2) Charcot-Cecy disease: Status: Acute (3) PAD (peripheral artery disease): Status: Acute (4) Non-pressure chronic ulcer of other part of left foot with necrosis of bone: Status: Acute (5) Diabetes: Status: Acute (6) CAD (coronary artery disease): Status: Acute Qualifiers: Coronary Disease-Associated Artery/Lesion type: [place] artery [place] vs. transplanted heart: [place] heart Associated angina: without angina Qualified Code(s): I25.10 - Atherosclerotic heart disease of [place] coronary artery without angina pectoris (7) Non-pressure chronic ulcer of left heel and midfoot with fat layer exposed: Status: Acute (8) Diabetic peripheral neuropathy associated with type 2 diabetes mellitus: Status: Acute Additional A&P Information # Cellulitis Continue empiric abx treatment with cefepime and vancomycin , cellulitis continues to improve, still residual around the ulceration. check blood cx negative thus far CXR without any evidence of consolidation. Covid rapid antigen negative Dr. Norman will be away from the hospital for the next 10 days, since patient does not require any acute surgical intervention at this time, will plan for discharge on a course of oal antibiotics with follow-up with Dr. Norman in the office. # DM: insulin sliding scale for now # HTN: continue home medications except HCTZ for now. 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 transplanted heart: [place] heart Associated angina: without angina Non-pressure chronic ulcer of left heel and midfoot with fat layer exposed L97.422 Diabetic peripheral neuropathy associated with type 2 diabetes mellitus E11.42
[2019-11-24 18:14] LABS: Glucose Point of Care 228 mg/dL (70-110)
[2019-11-24 19:27] VITALS: BP 100/57; PULSE 57; RESP 22; TEMP 37; O2SAT 98
[2019-11-24 21:25] LABS: Glucose Point of Care 276 mg/dL (70-110)
[2019-11-25] VITALS: BP 120/81; PULSE 60; RESP 26; TEMP 36.8; O2SAT 91
[2019-11-25 04:00] VITALS: BP 166/62; PULSE 56; RESP 20; TEMP 36.9; O2SAT 94
[2019-11-25 06:42] LABS: Glucose Point of Care 158 mg/dL (70-110)
[2019-11-25 07:35] VITALS: BP 152/65; PULSE 90; RESP 18; TEMP 36.6; O2SAT 94
[2019-11-25] MEDS: hyDRALAzine 50 mg Tablet 100 MG PO (08:02)
[2019-11-25] MEDS: aspirin 81 mg EC Tablet PO (08:03)
[2019-11-25] MEDS: amlodipine 10 mg Tablet PO (08:03)
[2019-11-25] MEDS: lisinopril 20 mg Tablet 40 MG PO (08:03)
[2019-11-25] MEDS: tamsulosin 0.4 mg Capsule PO (08:04)
[2019-11-25] MEDS: pantoprazole DR 40 mg Tablet PO (08:04)
[2019-11-25 10:45] LABS: Glucose Point of Care 247 mg/dL (70-110)
[2019-11-25 11:38] VITALS: BP 146/73; PULSE 56; RESP 18; TEMP 36.9; O2SAT 97
[2019-11-25] MEDS: cefepime 2,000 MG in sodium chloride 0.9% (plus) 50 ML 100 MG IV (11:58)
--- NOTE | 2019-11-25 13:39 | DCPLANNER ---
Pg 2 of IM updated and explained to pt. He states that he is sure ready to go and will be going @ 4:00 today. Copy provided.
[2019-11-25 16:00] VITALS: BP 149/59; PULSE 53; RESP 18; TEMP 37.2; O2SAT 95
--- NOTE | 2019-11-25 16:26 | PM.DCS ---
Discharge Providers Date of Admission: 11/22/19 17:57 Date of Discharge: November 25, 2019 Attending Provider at Admission: Charissa Frederick MD Attending Provider at Discharge: Charissa Frederick MD Primary Care Provider: Angie Zarate MD Diagnoses at Discharge Discharge Diagnosis (1) Cellulitis: Status: Acute Qualifiers: Laterality: left Site of cellulitis: extremity Site of cellulitis of extremity: lower extremity Qualified Code(s): L03.116 - Cellulitis of left lower limb (2) Charcot-Cecy disease: Status: Acute (3) PAD (peripheral artery disease): Status: Acute (4) Non-pressure chronic ulcer of other part of left foot with necrosis of bone: Status: Acute (5) Diabetes: Status: Acute (6) CAD (coronary artery disease): Status: Acute Qualifiers: Coronary Disease-Associated Artery/Lesion type: [place] artery [place] vs. transplanted heart: [place] heart Associated angina: without angina Qualified Code(s): I25.10 - Atherosclerotic heart disease of [place] coronary artery without angina pectoris (7) Non-pressure chronic ulcer of left heel and midfoot with fat layer exposed: Status: Acute (8) Diabetic peripheral neuropathy associated with type 2 diabetes mellitus: Status: Acute Reason for Visit Reason for Visit: left foot wound check Discharge Data Data Completed and Pending: Completed Studies During Hospitalization Category Date Time Status XR chest 1V frank ble [id number] Routine Exams 11/22/19 18:54 Completed Pending at discharge Category Date Time Status Blood Culture Sta t Lab 11/22/19 16:29 Results Clostridioides Di fficile PCR Routin e Lab 11/23/19 17:53 Uncollected Labs from last 24 hours 11/25/19 11/25/19 11/24/19 10:36 06:22 21:17 POC Glucose 247 158 276 11/24/19 16:45 POC Glucose 228 Vitals: Last Vital Signs Temp 98.4 F 11/25/19 11:38 Pulse 56 L 11/25/19 11:38 Resp 18 11/25/19 11:38 BP 146/73 11/25/19 11:38 Pulse Ox 97 11/25/19 11:38 Discharge Plan Discharge Patient Disposition: Home Condition: Stable Prescriptions: New Augmentin 875-125 mg tablet 1 tab PO BID 30 Days Qty: 60 RF: 0 ciprofloxacin HCl 500 mg tablet 500 mg PO BID 30 Days Qty: 60 RF: 0 Continued cholecalciferol (vitamin D3) 1,000 unit capsule 1,000 unit PO .COMPLEX RF: 0 aspirin [Adult Low Dose Aspirin] 81 mg tablet,delayed release (DR/EC) 81 mg PO DAILY RF: 0 clopidogrel 75 mg tablet 75 mg PO DAILY 90 Days Qty: 90 RF: 1 amlodipine-benazepril 10-40 mg capsule 1 cap PO DAILY Qty: 90 RF: 1 spironolacton-hydrochlorothiaz 25-25 mg tablet 1 tab PO DAILY Qty: 90 RF: 1 hydralazine 100 mg tablet 100 mg PO TID 90 Days Qty: 270 RF: 1 (DME) Accu-Chek Shira Plus test strp Strip See Rx Instructions .ROUTE .MEDSUPPLY Qty: 100 RF: 12 (DME) lancets [BD Ultra Fine Lancets] 33 gauge misc See Rx Instructions .ROUTE .MEDSUPPLY Qty: 100 RF: 6 pantoprazole 40 mg tablet,delayed release (DR/EC) 40 mg PO DAILY 90 Days Qty: 90 RF: 1 tamsulosin 0.4 mg capsule 0.4 mg PO DAILY Qty: 90 RF: 0 glipizide 10 mg tablet 10 mg PO BID RF: 0 Discharge Orders: Discharge Order (Routine); Ordered 11/25/19 Ordered By: Charissa Frederick Referrals: [facility] [Outside] Angie Zarate MD [Primary Care Provider] - Seferino Norman DPM [Physician] - 2 weeks Discharge Diet: Diabetic Discharge Activity: Resume usual activity Discharge Attestations Time Spent in Discharge Care*: other Quality Metrics Clinical Quality Measures During this hospital stay, did patient experience: None Coding Level of Care Code Acute Pediatric Intensive Physician for [facility] Fwd Diagnoses Cellulitis L03.116 Laterality: left Site of cellulitis: extremity Site of cellulitis of extremity: lower extremity Charcot-Cecy disease G60.0 PAD (peripheral artery disease) I73.9 Non-pressure chronic ulcer of other part of left foot with necrosis of bone L97.524 Diabetes E11.9 CAD (coronary artery disease) I25.10 Coronary Disease-Associated Artery/Lesion type: [place] artery [place] vs. transplanted heart: [place] heart Associated angina: without angina Non-pressure chronic ulcer of left heel and midfoot with fat layer exposed L97.422 Diabetic peripheral neuropathy associated with type 2 diabetes mellitus E11.42
[2019-11-25 16:50] VITALS: BP 146/73; PULSE 56; RESP 18; TEMP 36.9; O2SAT 97
[2019-11-25 16:52] LABS: Glucose Point of Care 232 mg/dL (70-110)
--- NOTE | 2019-11-25 17:28 | PC.NURSE ---
Pt discharged home. All questions answered.
== END 2019-11-25 17:29 | disposition home or self-care (01) | DRG 603 ==
LOC: ER 17:55 → MEDSURG 18:39
PROVIDERS: Admitting Provider Student in an Organized Health Care Education/Training Program; Emergency Provider Emergency Medicine; PCP Family Medicine; Visit Provider Student in an Organized Health Care Education/Training Program
DX: L03.116 Cellulitis of left lower limb (principal); L97.422 Non-pressure chronic ulcer of left heel and midfoot with fat layer exposed; L97.524 Non-pressure chronic ulcer of other part of left foot with necrosis of bone; E11.621 Type 2 diabetes mellitus with foot ulcer; E11.610 Type 2 diabetes mellitus with diabetic neuropathic arthropathy; E11.51 Type 2 diabetes mellitus with diabetic peripheral angiopathy without gangrene; E11.42 Type 2 diabetes mellitus with diabetic polyneuropathy; N40.0 Benign prostatic hyperplasia without lower urinary tract symptoms; I25.10 Atherosclerotic heart disease of native coronary artery without angina pectoris; Z95.5 Presence of coronary angioplasty implant and graft; K21.9 Gastro-esophageal reflux disease without esophagitis; I10 Essential (primary) hypertension; E66.9 Obesity, unspecified; Z68.31 Body mass index [BMI] 31.0-31.9, adult; Z87.891 Personal history of nicotine dependence; B96.5 Pseudomonas (aeruginosa) (mallei) (pseudomallei) as the cause of diseases classified elsewhere; B95.61 Methicillin susceptible Staphylococcus aureus infection as the cause of diseases classified elsewhere
CPT/HCPCS: 12345; 36415; 36416; 71045; 80053; 80202; 81001; 82962; 83605; 85025; 87040; 87426; 96372; 99283; J0692; J1815; J2020; J3370; J7040

== ENCOUNTER 2019-11-30 10:59 | Outpatient (CLI) | payer MEDICARE, SELFPAY | END 2019-11-30 11:00 | disposition home or self-care (01) | LOC: WOUND 11:00 | PROVIDERS: PCP Family Medicine; Visit Provider Nurse Practitioner Family | DX: E11.621 Type 2 diabetes mellitus with foot ulcer (principal); L97.522 Non-pressure chronic ulcer of other part of left foot with fat layer exposed | CPT/HCPCS: 11042 ==

== ENCOUNTER → 2019-12-05 11:00 | Outpatient (BNVA) | payer MEDICARE, SELFPAY | PROVIDERS: PCP Family Medicine; Visit Provider Family Medicine | DX: E11.9 Type 2 diabetes mellitus without complications (principal); I10 Essential (primary) hypertension | CPT/HCPCS: 80048; 83036 ==

== ENCOUNTER 2019-12-07 10:18 | Outpatient (CLI) | payer MEDICARE, SELFPAY | END 2019-12-07 10:19 | disposition home or self-care (01) | LOC: WOUND 10:19 | PROVIDERS: PCP Family Medicine; Visit Provider Nurse Practitioner Family | DX: E11.621 Type 2 diabetes mellitus with foot ulcer (principal); L97.522 Non-pressure chronic ulcer of other part of left foot with fat layer exposed; M86.171 Other acute osteomyelitis, right ankle and foot | CPT/HCPCS: 11042 ==

== ENCOUNTER 2019-12-12 10:06 | Outpatient (CLI) | payer MEDICARE, SELFPAY | END 2019-12-12 10:07 | disposition home or self-care (01) | LOC: WOUND 10:07 | PROVIDERS: PCP Family Medicine; Visit Provider Nurse Practitioner Family | DX: E11.621 Type 2 diabetes mellitus with foot ulcer (principal); L97.522 Non-pressure chronic ulcer of other part of left foot with fat layer exposed | CPT/HCPCS: 11042 ==

== ENCOUNTER 2019-12-19 10:07 | Outpatient (CLI) | payer MEDICARE, SELFPAY | END 2019-12-19 10:08 | disposition home or self-care (01) | LOC: WOUND 10:08 | PROVIDERS: PCP Family Medicine; Visit Provider Nurse Practitioner Family | DX: E11.621 Type 2 diabetes mellitus with foot ulcer (principal); L97.522 Non-pressure chronic ulcer of other part of left foot with fat layer exposed | CPT/HCPCS: 11042 ==

== ENCOUNTER 2019-12-26 09:18 | Outpatient (RCR) | payer MEDICARE, SELFPAY | END 2020-01-07 23:59 | disposition home or self-care (01) | LOC: WOUND 09:18 | PROVIDERS: PCP Family Medicine; Visit Provider Nurse Practitioner Family | DX: E11.621 Type 2 diabetes mellitus with foot ulcer (principal); L97.521 Non-pressure chronic ulcer of other part of left foot limited to breakdown of skin; M86.172 Other acute osteomyelitis, left ankle and foot | CPT/HCPCS: 11042 ==

== ENCOUNTER 2020-01-09 09:19 | Outpatient (CLI) | payer MEDICARE, SELFPAY | END 2020-01-09 09:20 | disposition home or self-care (01) | LOC: WOUND 09:20 | PROVIDERS: PCP Family Medicine; Visit Provider Nurse Practitioner Family | DX: E11.622 Type 2 diabetes mellitus with other skin ulcer (principal); L97.822 Non-pressure chronic ulcer of other part of left lower leg with fat layer exposed | CPT/HCPCS: 11042 ==

== ENCOUNTER 2020-01-16 09:42 | Outpatient (CLI) | payer MEDICARE, SELFPAY | END 2020-01-16 09:43 | disposition home or self-care (01) | LOC: WOUND 09:43 | PROVIDERS: PCP Family Medicine; Visit Provider Nurse Practitioner Family | DX: E11.621 Type 2 diabetes mellitus with foot ulcer (principal); L97.522 Non-pressure chronic ulcer of other part of left foot with fat layer exposed | CPT/HCPCS: 11042 ==

== ENCOUNTER 2020-01-23 10:37 | Outpatient (CLI) | payer MEDICARE, SELFPAY | END 2020-01-23 10:38 | disposition home or self-care (01) | LOC: WOUND 10:38 | PROVIDERS: PCP Family Medicine; Visit Provider Nurse Practitioner Family | DX: E11.621 Type 2 diabetes mellitus with foot ulcer (principal); L97.522 Non-pressure chronic ulcer of other part of left foot with fat layer exposed | CPT/HCPCS: G0463 ==

== ENCOUNTER 2020-01-30 10:26 | Outpatient (CLI) | payer MEDICARE, SELFPAY | END 2020-01-30 10:27 | disposition home or self-care (01) | LOC: WOUND 10:27 | PROVIDERS: PCP Family Medicine; Visit Provider Nurse Practitioner Family | DX: E11.621 Type 2 diabetes mellitus with foot ulcer (principal); L97.522 Non-pressure chronic ulcer of other part of left foot with fat layer exposed | CPT/HCPCS: 11042 ==

== ENCOUNTER 2020-02-06 10:30 | Outpatient (CLI) | payer MEDICARE, SELFPAY | END 2020-02-06 10:31 | disposition home or self-care (01) | LOC: WOUND 10:32 | PROVIDERS: PCP Family Medicine; Visit Provider Nurse Practitioner Family | DX: E11.621 Type 2 diabetes mellitus with foot ulcer (principal); L97.522 Non-pressure chronic ulcer of other part of left foot with fat layer exposed | CPT/HCPCS: 11042 ==

== ENCOUNTER 2020-02-13 10:26 | Outpatient (CLI) | payer MEDICARE, SELFPAY | END 2020-02-13 10:27 | disposition home or self-care (01) | LOC: WOUND 10:28 | PROVIDERS: PCP Family Medicine; Visit Provider Nurse Practitioner Family | DX: E11.621 Type 2 diabetes mellitus with foot ulcer (principal); L97.522 Non-pressure chronic ulcer of other part of left foot with fat layer exposed | CPT/HCPCS: 11042 ==

== ENCOUNTER → 2020-02-21 11:26 | Outpatient (BNVA) | payer MEDICARE, SELFPAY | PROVIDERS: PCP Family Medicine; Visit Provider Family Medicine | DX: K21.9 Gastro-esophageal reflux disease without esophagitis (principal); E11.42 Type 2 diabetes mellitus with diabetic polyneuropathy; I10 Essential (primary) hypertension; E11.621 Type 2 diabetes mellitus with foot ulcer; L97.509 Non-pressure chronic ulcer of other part of unspecified foot with unspecified severity; L03.116 Cellulitis of left lower limb; M14.672 Charcot's joint, left ankle and foot; M79.605 Pain in left leg; M25.562 Pain in left knee | CPT/HCPCS: 73562; 73590; 73630; 80053; 83036; 85025 ==

== ENCOUNTER 2020-02-24 16:55 | Inpatient (IN) | payer MEDICARE, SELFPAY ==
[2020-02-24 17:08] VITALS: BP 152/67; PULSE 76; RESP 20; TEMP 39.3; O2SAT 96; BMI 30.6
[2020-02-24 17:30] VITALS: BP 163/87; PULSE 78; RESP 18; O2SAT 98
--- NOTE | 2020-02-24 17:46 | XRR_ITS ---
PROCEDURE INFORMATION: Exam: XR Chest, 1 View Exam date and time: 02/24/2020 5:58 PM Age: 79 years old Clinical indication: Cough and fever; Patient HX: Cough, fever TECHNIQUE: Imaging protocol: XR of the chest Views: 1 view. COMPARISON: CR XR chest 1V portable [id number] 11/22/2019 7:31 PM FINDINGS: Lungs: Unchanged interstitial prominence/fibrosis. The pulmonary vascularity is within normal limits. No consolidation. Pleural space: Unremarkable. No pleural effusion. No pneumothorax. Heart/Mediastinum: Unchanged mild cardiomegaly. Bones/joints: No acute abnormality. XR/XR chest 1V portable [id number] IMPRESSION: No acute findings.
--- NOTE | 2020-02-24 17:46 | CTR_ITS ---
PROCEDURE INFORMATION: Exam: CT Left Lower Extremity With Contrast; Lower Leg Exam date and time: 02/24/2020 5:57 PM Age: 79 years old Clinical indication: Lower leg; Left; Patient HX: Mariola rubalcava HX of pad C/O lle pain and swelling - cellulitis, diabetic ulcer w ? osteo; Additional info: Cellulitis, diabetic ulcer, ? osteo TECHNIQUE: Imaging protocol: CT of the Left lower extremity with intravenous contrast was performed. Exam focused on the lower leg. Radiation optimization: All CT scans at this facility use at least one of these dose optimization techniques: automated exposure control; mA and/or kV adjustment per patient size (includes targeted exams where dose is matched to clinical indication); or iterative reconstruction. Contrast material: VISI 320; Contrast volume: 95 ml; Contrast route: INTRAVENOUS (IV); COMPARISON: CR XR tibia fibula LT 2V [id number] 02/21/2020 11:52 AM RADIATION DOSE METRICS: Total DLP (mGy-cm): 1353.38 FINDINGS: Bones/joints: There is extensive Charcot type deformity involving the tibiotalar joint, subtalar joint and midfoot involving all joints including the tarsal metatarsal joints. The Charcot deformity is associated with pes planus deformity, debris, increased density and disorganization of the bones and joints. Most of the Charcot type changes are demonstrated with bony sclerosis and degenerative type secondary changes but there is also permeative bony destruction and osteopenia involving the base of the 3rd through 5th metatarsals, distal cuboid and lateral cuneiform bone concerning for superimposed osteomyelitis. There is no knee joint effusion. No osteomyelitis or bony destruction is identified in the tibia or fibula. Chronic appearing periosteal reaction in the distal tibia and fibula are noted compatible with Charcot type changes. Old avulsion type fractures are noted in the ankle. There is chronic appearing dislocation of the talonavicular joint which has a Charcot type appearance. Soft tissues: There is an ulcer of the plantar lateral aspect of the foot directly adjacent to the abnormal cuboid and base of 5th metatarsal with gas extending into the defect ending immediately adjacent to the joint. There is also abundant soft tissue edema and skin thickening adjacent to the ulcer and the lateral foot especially adjacent to the abnormal metatarsals compatible probable soft tissue infection/phlegmon without a definite abscess. No foreign body. No intramuscular fluid collection. Vasculature: There is abundant edema of the skin and subcutaneous fat in the lower leg that may reflect additional cellulitis, lymphedema or venous stasis without abscess. CT/CT lower leg LT w con [id number] IMPRESSION: 1. There is extensive Charcot type deformity involving the tibiotalar joint, subtalar joint and midfoot involving all joints including the tarsal metatarsal joints. 2. There are bony abnormalities of the 3rd through 5th metatarsals, distal cuboid and lateral cuneiform bone compatible with probable osteomyelitis with adjacent soft tissue ulcer and cellulitis. No abscess. Additional edema in the lower leg may reflect cellulitis, lymphedema or venous stasis. Radiation Dose CTDIVOL = (mGy): DLP = 1353.38 (mGy-cm)
[2020-02-24 18:29] LABS: Basophils % 0.1 %; Eosinophils % 0.1 %; Hematocrit 33.1 % (42.0-52.0); Hemoglobin 10.5 g/dL (11.7-16.6); Lymphocytes # 1.1 10^3/uL (0.8-4.8); Lymphocytes % 9.7 %; Mean Corpuscular HGB Conc 31.7 g/dL (30.0-36.0); Mean Corpuscular Hemoglobin 27.1 pg (28.0-34.0); Mean Corpuscular Volume 85.3 fL (80-94); Mean Platelet Volume 11.3 fL (7.4-10.4); Monocytes # 0.9 10^3/uL (0.2-0.9); Monocytes % 8.6 %; Neutrophils # 8.75 10^3/uL (1.8-7.7); Neutrophils % 80.8 %; Nucleated Red Blood Cells % 0 %; Platelet Count 306 10^3/cmm (130-400); Red Blood Count 3.88 10^6/uL (4.1-5.3); Red Cell Distribution Width 14.8 % (12.1-15.1); White Blood Count 10.8 10^3/uL (4.0-10.0)
[2020-02-24] MEDS: iodixanol 320 mg/mL 100mL Btl 95 ML IV (18:29)
[2020-02-24 18:49] LABS: Lactate (Lactic Acid level) 1.8 mmol/L (0.5-2.2)
[2020-02-24 18:58] LABS: Procalcitonin 0.31 ng/mL (0-0.5)
[2020-02-24 19:09] LABS: Alanine Aminotransferase 47 U/L (0-41); Alkaline Phosphatase 93 IU/L (40-130); Anion Gap 15.1 (5-19); Aspartate Amino Transferase 46 U/L (0-40); Blood Urea Nitrogen 25 mg/dL (8-23); C Reactive Protein 226.6 mg/L (0.0-4.9); Calcium 8.9 mg/dL (8.5-10.5); Carbon Dioxide 23 mmol/L (22-29); Chloride 98 mmol/L (98-107); Glucose 187 mg/dL (65-115); Osmolality Calculated 283 mOsm/kg (285-295); Potassium 4.1 mmol/L (3.5-5.1); Sodium 132 mmol/L (136-145); Total Bilirubin 0.3 mg/dL (0.15-1.2)
[2020-02-24 19:14] LABS: Add Urine Microscopic? YES; Bilirubin Urine Neg (Negative); Blood Urine 2+ (Negative); Glucose Urine UA Norm (Normal); Ketones Urine Negative (Negative); Leukocyte Esterase Urine Negative (Negative); Nitrate Urine Negative (Negative); Protein Urine 3+ (Negative); Urine Appearance Clear (CLEAR); Urine Color Yellow (Yellow); Urobilinogen Urine Norm (Negative); pH Urine 5 (5-7)
[2020-02-24 19:20] LABS: Add Urine Culture? No; Amorphous Sediment Urine TRACE /hpf; Bacteria Urine 1+ /hpf; Hyaline Casts Urine 0-4 /lpf; Squamous Epithelial Cell Urine 0-4 /hpf (0-5)
[2020-02-24 19:30] LABS: Influenza A by IFA Negative (Negative); Influenza B by IFA Negative (Negative); SARS Covid-2 Antigen Negative (Negative)
--- NOTE | 2020-02-24 19:58 | PM.HP ---
Providers/Chief Complaint Primary Care Provider: Angie Zarate MD Chief Complaint: Lt leg pain History of Present Illness Marcus Thompson is a 79 year old male Who Has History of Diabetic Foot, arthropathy, has been evaluated by orthopedic for left BKA, Dr. Norman, Dr. Baeza, Dr. Medeiros are all aware of his worsening diabetic foot ulcer, his latest debridement was 10 days ago, previously has been treated with Zyvox and daptomycin via PICC line (previous wound culture grew Pseudomonas, Klebsiella E. coli and MRSA) patient was not able to make final decision regarding BKA presented today with chief complaint of rigors. Patient is stating that for last 3 to 4 days he has been experiencing extreme rigors/chills, his temperature at home was 98.9 or 99, he did not experience any nausea, vomiting, chest pain, dysuria change in bowel movements. Because of worsening chills he decided to come to the hospital for further evaluation. He does use wheelchair sometimes cane for ambulation, he has [place] boots as well. Diagnosis in the ER revealed sepsis secondary to left foot osteomyelitis fever, leukocytosis, he has been given vancomycin, I have asked him about penicillin allergy which she is taking as nausea and vomiting we discussed about the side effect of the medication. He never had any anaphylaxis or skin rash. I would go ahead and start him on vancomycin and Zosyn. Review of Systems Const: Reports: chills, body aches and fatigue Eyes: Denies: change in vision ENMT: Denies: throat pain Card: Denies: chest pain Resp: Denies: dyspnea GI: Denies: abdominal pain : Denies: flank pain Musc: Denies: neck pain Skin/Breast: Reports: new lesions, lesions and dry skin Neuro: Reports: difficulty walking; Denies: headache(s) Psych: Denies: anxiety Endo: Denies: polyuria Dick/Lymph: Denies: easy bruising All/Imm: Denies: urticaria Medications/Allergies Home Medications Medication Instructions Recorded Confirmed Last Taken Type aspirin 81 mg tablet,delayed 81 mg PO DAILY@03/15/19 02/24/20 02/24/20 History release cholecalciferol (vitamin D3) 25 1,000 unit PO DAILY@03/15/19 02/24/20 02/24/20 History mcg (1,000 unit) capsule gabapentin 100 mg capsule 300 mg PO TID PRN #30 cap MDD 9 02/22/20 02/24/20 02/23/20 Rx caps amlodipine-benazepril 1 cap PO DAILY@02/24/20 02/24/20 02/24/20 History clopidogrel 75 mg PO DAILY@07 02/24/20 02/24/20 02/24/20 History glipizide 10 mg PO BID@,02/24/20 02/24/20 02/24/20 History hydralazine 100 mg PO TID@07,,02/24/20 02/24/20 02/24/20 History pantoprazole 40 mg PO DAILY@02/24/20 02/24/20 02/24/20 History spironolacton-hydrochlorothiaz 1 tab PO DAILY@02/24/20 02/24/20 02/24/20 History tamsulosin 0.4 mg PO DAILY@02/24/20 02/24/20 02/23/20 History Allergies Allergy/AdvReac Type Severity Reaction Status Date / Time Penicillins Allergy Unknown Verified 02/21/20 09:59 PFSH Acute PFSH: Medical History (Updated 02/24/20 @ 21:41 by Lm Gayle MD) BPH (benign prostatic hyperplasia) CAD (coronary artery disease) Charcot's arthropathy Diabetes GERD (gastroesophageal reflux disease) History of amputation of right great toe Hypertension Macular edema Obesity PAD (peripheral artery disease) Peripheral neuropathy Renal insufficiency Surgical History H/O eye surgery History of cardiac cath History of coronary artery stent placement Family History Denies family history of Diabetes Dementia Anesthesia complication Cancer Social History Smoking and tobacco status: former smoker Quit status (tobacco): has quit using tobacco Second hand smoke exposure: No Smoking risk assessment/counseling performed?: No Alcohol intake: never Desire information about alcohol rehabilitation?: No Counseling given: No Desire information about substance/drug rehabilitation?: No Counseling given: No Caregiver/support person: Yes Lives independently: Yes Household members: spouse Current occupational status: retired and disabled Current gender identity: Male Vitals/I&O/Wt Last Vital Signs Temp 102.8 F H 02/24/20 17:08 Pulse 78 02/24/20 17:30 Resp 18 02/24/20 17:30 BP 163/87 02/24/20 17:30 Pulse Ox 98 02/24/20 17:30 Weight last 48 hrs Weight 105.233 kg Physical Exam Narrative: EXAM NARRATIVE: elderly obese male currently laying comfortable in left lateral position in his bed No active chest pain shortness of breath nausea or vomiting Saturating well on room air Is not complaining of any pain in his foot Has bilateral lower extremity neuropathy Right toe amputation, no other ulcers or cleanliness changes on right foot Left foot Charcot foot arthropathy, left lateral border deep wound without rolled edges with granulation tissue, wound bed seems to be containing fat and subcutaneous tissue No active drainage, no active gangrenous changes S1, S2 sinus rhythm Abdomen soft, distended bowel sound present visceral obesity Neurologically nonfocal exam Awake alert oriented x3 GCS 15 very pleasant Appropriate mood and affect Data : 02/24/20 18:15 02/24/20 18:15 A&P Assessment and plan (1) Foot osteomyelitis, left: Status: Acute (2) Sepsis: Status: Acute (3) Charcot-Cecy disease: Status: Acute (4) PAD (peripheral artery disease): Status: Acute (5) Non-pressure chronic ulcer of other part of left foot with necrosis of bone: Status: Acute (6) Charcot's arthropathy: Status: Acute Additional A&P Information Sepsis secondary to left foot osteomyelitis Previous microbiology report reviewed, wound culture report reviewed, wound care clinic reports reviewed Current data consistent with sepsis secondary to osteomyelitis Criteria met with fever, leukocytosis, tachypnea Start him on vancomycin and Zosyn, patient does not have penicillin allergy he had side effects to penicillin which was nausea and vomiting Wound culture sent Patient has been evaluated by multiple physicians and surgeons, Dr. Medeiros is well aware of his case who is not on-call tomorrow, Dr. Norman is not available, I will go ahead start antibiotics, request PICC line placement for long-term antibiotics, patient is agreeable for amputation now, there is no urgent need for surgical debridement, kindly reevaluate in the morning if Dr. Medeiros could see him although he is not on-call Diet: I highly doubt he will be taking to the OR for debridement or BKA tomorrow, I will go ahead and start him on consistent carb diet and moderate sliding scale for now Dilaudid for analgesia for osteomyelitis Patient is full code DVT prophylaxis Heparin Chronic kidney disease without acute exacerbation, creatinine seems to be around baseline 1.4 however I would reduce gabapentin dose to 103 times a day and start 300 mg., Hold Benzapril Attestations Medical Necessity Statement*: Anticipating stay in the hospital cross more than 2 midnights continued IV antibiotics and possible need BKA for osteomyelitis of left foot Time Spent in Patient Care: (>than 50% of time spent in counselling and/or direct pt care on unit). 50mins Coding Level of Care Code Acute Blind Eyeletter for [facility] Diagnoses Foot osteomyelitis, left M86.9 Sepsis A41.9 Charcot-Cecy disease G60.0 PAD (peripheral artery disease) I73.9 Non-pressure chronic ulcer of other part of left foot with necrosis of bone L97.524 Charcot's arthropathy M14.60
[2020-02-24] MEDS: vancomycin 1,500 MG/300 ML PIGGYBACK 200 MG IV (20:15)
[2020-02-24 20:45] VITALS: BP 147/94; PULSE 73; RESP 16; TEMP 38.7; O2SAT 95
[2020-02-24 21:30] VITALS: BP 154/76; PULSE 82; RESP 24; TEMP 37.9; O2SAT 95
[2020-02-24 21:36] LABS: Glucose Point of Care 138 mg/dL (70-110)
[2020-02-24] MEDS: heparin 5,000 unit/mL INJ 1 mL 5000 UNIT SUBCUT (22:13)
[2020-02-24 22:41] LABS: Erythrocyte Sedimentation Rate 112 mm/hr (0-10)
--- NOTE | 2020-02-24 23:15 | W.ED.EXTPRO ---
HPI - Extremity Problem General: Chief complaint: Extremity Problem,Nontraumatic Stated complaint: Lt leg pain Time Seen by Provider: 02/24/20 17:25 Source: patient and family () Mode of arrival: ambulatory Limitations: no limitations History of Present Illness: HPI Narrative: Patient is an 79-year-old diabetic with a chronic diabetic ulcer. He sees the providers at the wound care clinic who has been helping with his wound. He also has a home health nurse who cares for him. For the last 2 days he has had increasing pain, redness and swelling of his left foot and lower extremity. He has also developed a fever with shaking chills and rigors. He denies any cough or difficulty breathing. He denies any loss of taste or smell. He denies any sick contacts with sick patients. He is here to be evaluated. Complaint: extremity pain and extremity swelling Onset (ago): day(s) (2) Pain Consistency: constant Location: left and lower extremity (leg and foot) Quality: constant Radiation: none Relieving factors: nothing Exacerbating factors: nothing Associated symptoms: Reports arthralgias, fever(s) and myalgias; Deny chest pain, rash or short of breath Review of Systems General: Reports: 10 or more systems reviewed and unremarkable except in HPI and below Const: Reports: fever(s) Eyes: Denies: change in vision or blurry vision ENMT: Denies: throat pain, enlarged tonsils, odynophagia, hoarseness, mouth pain or swelling of lips/tongue Card: Denies: chest pain Resp: Denies: dyspnea, productive cough or non-productive cough GI: Denies: abdominal pain, nausea or vomiting : Denies: flank pain, dysuria, urinary frequency, urinary urgency or urinary hesitancy Musc: Denies: neck pain, back pain or extremity swelling Skin/Breast: Denies: rash Neuro: Denies: headache(s), numbness in extremities or weakness in extremities Endo: Denies: polyuria, polydipsia or tired all the time [facility] ED PFSH: Medical History (Updated 02/24/20 @ 23:39 by Shaquille Clayton MD, [facility]) BPH (benign prostatic hyperplasia) CAD (coronary artery disease) Charcot's arthropathy Diabetes GERD (gastroesophageal reflux disease) History of amputation of right great toe Hypertension Macular edema Obesity PAD (peripheral artery disease) Peripheral neuropathy Renal insufficiency Surgical History H/O eye surgery History of cardiac cath History of coronary artery stent placement Family History Denies family history of Diabetes Dementia Anesthesia complication Cancer Social History Smoking and tobacco status: former smoker Quit status (tobacco): has quit using tobacco Second hand smoke exposure: No Smoking risk assessment/counseling performed?: No Alcohol intake: never Desire information about alcohol rehabilitation?: No Counseling given: No Desire information about substance/drug rehabilitation?: No Counseling given: No Caregiver/support person: Yes Lives independently: Yes Household members: spouse Current occupational status: retired and disabled Current gender identity: Male Physical Exam Const: COMMON NORMALS: no acute distress, average body habitus, patient oriented x3, no limitations, healthy appearing, alert and well nourished HENMT: COMMON NORMALS: normocephalic, atraumatic and moist oral mucous membranes HEAD & SCALP: normocephalic and atraumatic Neck/C-Spine: COMMON NORMALS: no meningeal signs and no JVD Resp: COMMON NORMALS: normal respiratory effort, No retractions, No use of accessory muscles, clear to auscultation bilaterally and percussion normal AUSCULTATION: clear to auscultation bilaterally PERCUSSION: percussion normal Cardio: COMMON NORMALS: no JVD, regular rate, regular rhythm, S1 normal heart sound present, S2 normal heart sound present, No gallops present (Cardio), No clicks present (Cardio), No murmurs present (Cardio), No rub (Cardio) and Peripheral pulses 2+ throughout RATE: regular rate RHYTHM: regular rhythm HEART SOUNDS: S1 normal heart sound present and S2 normal heart sound present PERIPHERAL PULSES: Peripheral pulses 2+ throughout GI: COMMON NORMALS: Normal to inspection, nondistended, normoactive bowel sounds present, Soft to palpation, non-tender, No hepatosplenomegaly present, no masses and no bruits PALPATION: Yes Soft to palpation and Yes No hepatosplenomegaly present Extremity: COMMON NORMALS: normal to inspection, full ROM, capillary refill normal, no calf tenderness and no pedal edema OTHER: Left lower extremity with Charcot's deformity. He has an ulcer on the lateral part of his foot with some tunneling. No drainage was noted. He has erythema of the foot and significant warmth when compared to the other foot. The leg is also warm compared to the other leg. Neuro: COMMON NORMALS: patient oriented x3 SENSORIUM/ORIENTATION: Yes alert MENINGEAL SIGNS: Yes no meningeal signs Skin: COMMON NORMALS: no rashes or lesions noted, no wounds, turgor normal, no jaundice, no petechiae and no mottling GENERAL SKIN EXAM: no rashes or lesions noted and turgor normal Course ED course: 79-year-old diabetic with diabetic foot ulcer that has been chronic. He came in today with symptoms consistent with cellulitis and on evaluation he has osteomyelitis of the left foot. He is admitted for further evaluation and management. 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 Consultations: Consultation #1: Discussed the patient with Dr. Gayle, hospitalist and he kindly accepted the patient to his service. Time: 19:58 Vital Signs: Vital signs: Vital Signs Temperature 100.2 F H 02/24/20 21:30 Pulse Rate 82 02/24/20 21:30 Respiratory Rate 24 H 02/24/20 21:30 Blood Pressure 154/76 02/24/20 21:30 Pulse Oximetry 95 02/24/20 21:30 MDM - Extremity (Nontraumatic) MDM Narrative: Medical decision making narrative: 79-year-old male with osteomyelitis of the foot from chronic diabetic ulcer. He is admitted for further evaluation and management. He also has cellulitis of the left lower extremity. He is febrile and ill looking in the ED. He was tested for COVID-19 and influenza and both were negative. He was given a dose of IV vancomycin in the ED. Medical Records: Attestation: I reviewed the patient's medical records. Lab Data: Attestation: I reviewed the patient's lab results. Labs: Lab Results 02/24/20 02/24/20 02/24/20 Range/Units 18:15 18:15 18:15 WBC 10.8 H (4.0-10.0) 10^3/ uL RBC 3.88 L (4.1-5.3) 10^6/u L Hgb 10.5 L (11.7-16.6) g/dL Hct 33.1 L (42.0-52.0) % MCV 85.3 (80-94) fL MCH 27.1 L (28.0-34.0) pg MCHC 31.7 (30.0-36.0) g/dL RDW 14.8 (12.1-15.1) % Plt Count 306 (130-400) 10^3/c mm MPV 11.3 H (7.4-10.4) fL Neut % (Auto) 80.8 % Lymph % (Auto) 9.7 % Benton % (Auto) 8.6 % Eos % (Auto) 0.1 % Baso % (Auto) 0.1 % Neut # (Auto) 8.75 H (1.8-7.7) 10^3/u L Lymph # (Auto) 1.1 (0.8-4.8) 10^3/u L Benton # (Auto) 0.9 (0.2-0.9) 10^3/u L Eos # (Auto) 0.0 (0.0-0.8) 10^3/u L Baso # (Auto) 0.0 (0.0-0.1) 10^3/u L Nucleated RBC % (a uto) 0 % Nucleated RBCs # 0.0 /100WBC ESR (0-10) mm/hr Sodium 132 L (136-145) mmol/L Potassium 4.1 (3.5-5.1) mmol/L Chloride 98 (98-107) mmol/L Carbon Dioxide 23 (22-29) mmol/L Anion Gap 15.1 (5-19) BUN 25 H (8-23) mg/dL Creatinine 1.4 H (0.7-1.2) mg/dL GFR Calculation Not Reportable Glucose 187 H (65-115) mg/dL Calculated Osmolal ity 283 L (285-295) mOsm/k g Lactate 1.8 (0.5-2.2) mmol/L Calcium 8.9 (8.5-10.5) mg/dL Total Bilirubin 0.3 (0.15-1.2) mg/dL AST 46 H (0-40) U/L ALT 47 H (0-41) U/L Alkaline Phosphata se 93 (40-130) IU/L C-Reactive Protein 226.6 H (0.0-4.9) mg/L Total Protein 8.0 (6.6-8.7) g/dL Albumin 3.0 L (3.5-5.2) g/dL Globulin 5.0 H (1.3-4.6) g/dL Procalcitonin 0.31 (0-0.5) ng/mL Urine Color (Yellow) Urine Appearance (CLEAR) Urine pH (5-7) Ur Specific Gravit y (1.005-1.030) Urine Protein (Negative) Urine Glucose (UA) (Normal) Urine Ketones (Negative) Urine Blood (Negative) Urine Nitrate (Negative) Urine Bilirubin (Negative) Urine Urobilinogen (Negative) mg/dL Ur Leukocyte Lyndsay ase (Negative) Urine RBC (0-2) /hpf Urine WBC (0-5) /hpf Ur Squamous Epith Cells (0-5) /hpf Amorphous Sediment /hpf Urine Bacteria (NONE) /hpf Hyaline Casts /lpf Influenza Type A A g (Negative) Influenza Type B A g (Negative) SARS-CoV-2 Ag (Rap id) (Negative) 02/24/20 02/24/20 02/24/20 Range/Units 18:15 18:33 18:55 WBC (4.0-10.0) 10^3/ uL RBC (4.1-5.3) 10^6/u L Hgb (11.7-16.6) g/dL Hct (42.0-52.0) % MCV (80-94) fL MCH (28.0-34.0) pg MCHC (30.0-36.0) g/dL RDW (12.1-15.1) % Plt Count (130-400) 10^3/c mm MPV (7.4-10.4) fL Neut % (Auto) % Lymph % (Auto) % Benton % (Auto) % Eos % (Auto) % Baso % (Auto) % Neut # (Auto) (1.8-7.7) 10^3/u L Lymph # (Auto) (0.8-4.8) 10^3/u L Benton # (Auto) (0.2-0.9) 10^3/u L Eos # (Auto) (0.0-0.8) 10^3/u L Baso # (Auto) (0.0-0.1) 10^3/u L Nucleated RBC % (a uto) % Nucleated RBCs # /100WBC ESR 112 H (0-10) mm/hr Sodium (136-145) mmol/L Potassium (3.5-5.1) mmol/L Chloride (98-107) mmol/L Carbon Dioxide (22-29) mmol/L Anion Gap (5-19) BUN (8-23) mg/dL Creatinine (0.7-1.2) mg/dL GFR Calculation Glucose (65-115) mg/dL Calculated Osmolal ity (285-295) mOsm/k g Lactate (0.5-2.2) mmol/L Calcium (8.5-10.5) mg/dL Total Bilirubin (0.15-1.2) mg/dL AST (0-40) U/L ALT (0-41) U/L Alkaline Phosphata se (40-130) IU/L C-Reactive Protein (0.0-4.9) mg/L Total Protein (6.6-8.7) g/dL Albumin (3.5-5.2) g/dL Globulin (1.3-4.6) g/dL Procalcitonin (0-0.5) ng/mL Urine Color Yellow (Yellow) Urine Appearance Clear (CLEAR) Urine pH 5 (5-7) Ur Specific Gravit y 1.020 (1.005-1.030) Urine Protein 3+ H (Negative) Urine Glucose (UA) Norm (Normal) Urine Ketones Negative (Negative) Urine Blood 2+ H (Negative) Urine Nitrate Negative (Negative) Urine Bilirubin Neg (Negative) Urine Urobilinogen Norm (Negative) mg/dL Ur Leukocyte Lyndsay ase Negative (Negative) Urine RBC 5-10 H (0-2) /hpf Urine WBC None (0-5) /hpf Ur Squamous Epith Cells 0-4 H (0-5) /hpf Amorphous Sediment Trace /hpf Urine Bacteria 1+ H (NONE) /hpf Hyaline Casts 0-4 H /lpf Influenza Type A A g Negative (Negative) Influenza Type B A g Negative (Negative) SARS-CoV-2 Ag (Rap id) (Negative) 02/24/20 Range/Units 18:55 WBC (4.0-10.0) 10^3/ uL RBC (4.1-5.3) 10^6/u L Hgb (11.7-16.6) g/dL Hct (42.0-52.0) % MCV (80-94) fL MCH (28.0-34.0) pg MCHC (30.0-36.0) g/dL RDW (12.1-15.1) % Plt Count (130-400) 10^3/c mm MPV (7.4-10.4) fL Neut % (Auto) % Lymph % (Auto) % Benton % (Auto) % Eos % (Auto) % Baso % (Auto) % Neut # (Auto) (1.8-7.7) 10^3/u L Lymph # (Auto) (0.8-4.8) 10^3/u L Benton # (Auto) (0.2-0.9) 10^3/u L Eos # (Auto) (0.0-0.8) 10^3/u L Baso # (Auto) (0.0-0.1) 10^3/u L Nucleated RBC % (a uto) % Nucleated RBCs # /100WBC ESR (0-10) mm/hr Sodium (136-145) mmol/L Potassium (3.5-5.1) mmol/L Chloride (98-107) mmol/L Carbon Dioxide (22-29) mmol/L Anion Gap (5-19) BUN (8-23) mg/dL Creatinine (0.7-1.2) mg/dL GFR Calculation Glucose (65-115) mg/dL Calculated Osmolal ity (285-295) mOsm/k g Lactate (0.5-2.2) mmol/L Calcium (8.5-10.5) mg/dL Total Bilirubin (0.15-1.2) mg/dL AST (0-40) U/L ALT (0-41) U/L Alkaline Phosphata se (40-130) IU/L C-Reactive Protein (0.0-4.9) mg/L Total Protein (6.6-8.7) g/dL Albumin (3.5-5.2) g/dL Globulin (1.3-4.6) g/dL Procalcitonin (0-0.5) ng/mL Urine Color (Yellow) Urine Appearance (CLEAR) Urine pH (5-7) Ur Specific Gravit y (1.005-1.030) Urine Protein (Negative) Urine Glucose (UA) (Normal) Urine Ketones (Negative) Urine Blood (Negative) Urine Nitrate (Negative) Urine Bilirubin (Negative) Urine Urobilinogen (Negative) mg/dL Ur Leukocyte Lyndsay ase (Negative) Urine RBC (0-2) /hpf Urine WBC (0-5) /hpf Ur Squamous Epith Cells (0-5) /hpf Amorphous Sediment /hpf Urine Bacteria (NONE) /hpf Hyaline Casts /lpf Influenza Type A A g (Negative) Influenza Type B A g (Negative) SARS-CoV-2 Ag (Rap id) Negative (Negative) Imaging Data^: CXR: Attestation: I personally reviewed and interpreted this imaging study as follows: Radiologist's impression: [address] [address] XRay Report Signed Patient: Marcus Thompson #: [id number] : 1940Acct#:[id number] Age/Sex: 79 / MADM Date: 02/24/20 Loc: [facility]/Bed: Attending Dr: Ordering Provider/Ordering MD: Shaquille Clayton MD, [facility] Date of Service: 02/24/20 Procedure(s): XR chest 1V portable [id number] Accession Number(s): [id number] Report Number: [id number] PROCEDURE INFORMATION: Exam: XR Chest, 1 View Exam date and time: 02/24/2020 5:58 PM Age: 79 years old Clinical indication: Cough and fever; Patient HX: Cough, fever TECHNIQUE: Imaging protocol: XR of the chest Views: 1 view. COMPARISON: CR XR chest 1V portable [id number] 11/22/2019 7:31 PM FINDINGS: Lungs: Unchanged interstitial prominence/fibrosis. The pulmonary vascularity is within normal limits. No consolidation. Pleural space: Unremarkable. No pleural effusion. No pneumothorax. Heart/Mediastinum: Unchanged mild cardiomegaly. Bones/joints: No acute abnormality. XR/XR chest 1V portable [id number] IMPRESSION: No acute findings. Dictated By:Dana Jc Signed By:Linden Jc Date/Time:02/24/201818 DD/ [address]: Radiologist's impression: [address] [place] [address] CT Scan Report Signed Patient: Marcus Thompson #: [id number] : 1940Acct#:[id number] Age/Sex: 79 / MADM Date: 02/24/20 Loc: [facility]/Bed: Attending Dr: Ordering Provider/Ordering MD: Shaquille Clayton MD, [facility] Date of Service: 02/24/20 Procedure(s): CT lower leg LT w con [id number] Accession Number(s): [id number] Report Number: [id number] PROCEDURE INFORMATION: Exam: CT Left Lower Extremity With Contrast; Lower Leg Exam date and time: 02/24/2020 5:57 PM Age: 79 years old Clinical indication: Lower leg; Left; Patient HX: Charcot maximus w HX of pad C/O lle pain and swelling - cellulitis, diabetic ulcer w ? osteo; Additional info: Cellulitis, diabetic ulcer, ? osteo TECHNIQUE: Imaging protocol: CT of the Left lower extremity with intravenous contrast was performed. Exam focused on the lower leg. Radiation optimization: All CT scans at this facility use at least one of these dose optimization techniques: automated exposure control; mA and/or kV adjustment per patient size (includes targeted exams where dose is matched to clinical indication); or iterative reconstruction. Contrast material: VISI 320; Contrast volume: 95 ml; Contrast route: INTRAVENOUS (IV); COMPARISON: CR XR tibia fibula LT 2V [id number] 02/21/2020 11:52 AM RADIATION DOSE METRICS: Total DLP (mGy-cm): 1353.38 FINDINGS: Bones/joints: There is extensive Charcot type deformity involving the tibiotalar joint, subtalar joint and midfoot involving all joints including the tarsal metatarsal joints. The Charcot deformity is associated with pes planus deformity, debris, increased density and disorganization of the bones and joints. Most of the Charcot type changes are demonstrated with bony sclerosis and degenerative type secondary changes but there is also permeative bony destruction and osteopenia involving the base of the 3rd through 5th metatarsals, distal cuboid and lateral cuneiform bone concerning for superimposed osteomyelitis. There is no knee joint effusion. No osteomyelitis or bony destruction is identified in the tibia or fibula. Chronic appearing periosteal reaction in the distal tibia and fibula are noted compatible with Charcot type changes. Old avulsion type fractures are noted in the ankle. There is chronic appearing dislocation of the talonavicular joint which has a Charcot type appearance. Soft tissues: There is an ulcer of the plantar lateral aspect of the foot directly adjacent to the abnormal cuboid and base of 5th metatarsal with gas extending into the defect ending immediately adjacent to the joint. There is also abundant soft tissue edema and skin thickening adjacent to the ulcer and the lateral foot especially adjacent to the abnormal metatarsals compatible probable soft tissue infection/phlegmon without a definite abscess. No foreign body. No intramuscular fluid collection. Vasculature: There is abundant edema of the skin and subcutaneous fat in the lower leg that may reflect additional cellulitis, lymphedema or venous stasis without abscess. CT/CT lower leg LT w con [id number] IMPRESSION: 1. There is extensive Charcot type deformity involving the tibiotalar joint, subtalar joint and midfoot involving all joints including the tarsal metatarsal joints. 2. There are bony abnormalities of the 3rd through 5th metatarsals, distal cuboid and lateral cuneiform bone compatible with probable osteomyelitis with adjacent soft tissue ulcer and cellulitis. No abscess. Additional edema in the lower leg may reflect cellulitis, lymphedema or venous stasis. Radiation Dose CTDIVOL = (mGy): DLP = 1353.38 (mGy-cm) Dictated By:Dana Jc Signed By:Linden Jc Date/Time:02/24/201910 DD/ 09 Discharge Plan Discharge Patient Disposition: Admitted As Inpatient Admit Provider: Lm Gayle Clinical Impression: Foot osteomyelitis, left, Charcot's arthropathy, Charcot's joint, left ankle and foot Condition: Stable Coding Level of Care Code [facility]
[2020-02-24] MEDS: piperacillin-tazobactam 3.375 GM in sodium chloride 0.9% (plus) 50 ML IV (23:39)
[2020-02-25] VITALS (9 sets, daily range): BP systolic 111–146; BP diastolic 49–67; PULSE 65–84; RESP 17–28; TEMP 36.9–39.3; O2SAT 90–96
[2020-02-25] MEDS: zolpidem 5 mg Tablet PO (03:16)
[2020-02-25] MEDS: acetaminophen 325 mg Tablet PO ×2 (04:53→15:45)
[2020-02-25] MEDS: heparin 5,000 unit/mL INJ 1 mL 5000 UNIT SUBCUT ×3 (04:54→21:52)
[2020-02-25 06:28] LABS: Basophils % 0.2 %; Hematocrit 27.4 % (42.0-52.0); Hemoglobin 8.8 g/dL (11.7-16.6); Lymphocytes % 11.4 %; Mean Corpuscular HGB Conc 32.1 g/dL (30.0-36.0); Mean Corpuscular Hemoglobin 26.9 pg (28.0-34.0); Mean Corpuscular Volume 83.8 fL (80-94); Mean Platelet Volume 11.6 fL (7.4-10.4); Monocytes # 0.8 10^3/uL (0.2-0.9); Monocytes % 9.7 %; Neutrophils # 6.73 10^3/uL (1.8-7.7); Neutrophils % 77.9 %; Nucleated Red Blood Cells % 0 %; Platelet Count 257 10^3/cmm (130-400); Red Blood Count 3.27 10^6/uL (4.1-5.3); Red Cell Distribution Width 14.6 % (12.1-15.1); White Blood Count 8.7 10^3/uL (4.0-10.0)
[2020-02-25] MEDS: hyDRALAzine 50 mg Tablet 100 MG PO ×3 (06:53→17:42)
[2020-02-25] MEDS: aspirin 81 mg EC Tablet PO (06:54)
[2020-02-25] MEDS: clopidogrel 75 mg Tablet PO (06:54)
[2020-02-25] MEDS: pantoprazole DR 40 mg Tablet PO (06:54)
[2020-02-25 07:07] LABS: Glucose Point of Care 126 mg/dL (70-110)
[2020-02-25 07:19] LABS: Anion Gap 15.5 (5-19); Blood Urea Nitrogen 23 mg/dL (8-23); Calcium 8.3 mg/dL (8.5-10.5); Carbon Dioxide 20 mmol/L (22-29); Chloride 100 mmol/L (98-107); Glucose 131 mg/dL (65-115); Osmolality Calculated 279 mOsm/kg (285-295); Potassium 3.5 mmol/L (3.5-5.1); Sodium 132 mmol/L (136-145)
[2020-02-25] MEDS: piperacillin-tazobactam 3.375 GM in sodium chloride 0.9% (plus) 50 ML IV ×2 (09:22→17:41)
[2020-02-25] MEDS: amlodipine 10 mg Tablet PO (09:23)
[2020-02-25 10:58] LABS: Glucose Point of Care 214 mg/dL (70-110)
--- NOTE | 2020-02-25 11:45 | PM.PN ---
Subjective Subjective: Interval history: Patient reports feeling much better this morning. He continues to have left lower extremity warmness. He denies chest pain or shortness of breath even with exertion. He is diabetic and had known coronary artery disease requiring intervention approximately 5 years ago. Reports that since then he has been doing well and had no more pains or dyspnea. He is currently on Zosyn and vancomycin. Vitals/I&O/Wt Last Vital Signs Temp 98.5 F 02/25/20 11:36 Pulse 67 02/25/20 11:36 Resp 17 02/25/20 11:36 BP 131/60 02/25/20 11:36 Pulse Ox 90 02/25/20 11:36 02/24/20 02/25/20 02/25/20 22:59 06:59 14:59 Intake Total 350 / 350 Output Total 100 / 100 325 / 425 Balance -100 / -100 25 / -75 Weight last 48 hrs Weight 105.233 kg Physical Exam Const: COMMON NORMALS: no acute distress and patient oriented x3 Resp: COMMON NORMALS: normal respiratory effort and clear to auscultation bilaterally AUSCULTATION: clear to auscultation bilaterally Cardio: COMMON NORMALS: regular rate, regular rhythm and S2 normal heart sound present RATE: regular rate RHYTHM: regular rhythm HEART SOUNDS: S2 normal heart sound present OTHER: No lower extremity edema. Left severe Charcot's arthropathy with ulcer that currently dressed. GI: COMMON NORMALS: Normal to inspection, nondistended, normoactive bowel sounds present, Soft to palpation and non-tender PALPATION: Yes Soft to palpation Neuro: COMMON NORMALS: patient oriented x3 and no focal motor deficits Data : 02/25/20 05:58 02/25/20 05:58 A&P Assessment and plan (1) Foot osteomyelitis, left: In diabetic patient. Status: Acute Qualifiers: Osteomyelitis type: other acute Qualified Code(s): M86.172 - Other acute osteomyelitis, left ankle and foot (2) Sepsis: Status: Acute (3) Charcot-Cecy disease: Status: Acute (4) PAD (peripheral artery disease): Status: Acute (5) Non-pressure chronic ulcer of other part of left foot with necrosis of bone: Status: Acute (6) Charcot's arthropathy: Status: Acute Additional A&P Information Sepsis secondary to left foot osteomyelitis Previous microbiology report reviewed, wound culture report reviewed, wound care clinic reports reviewed Current data consistent with sepsis secondary to osteomyelitis Criteria met with fever, leukocytosis, tachypnea Start him on vancomycin and Zosyn, patient does not have penicillin allergy he had side effects to penicillin which was nausea and vomiting Wound culture sent Patient has been evaluated by multiple physicians and surgeons, Dr. Medeiros is well aware of his case who is not on-call tomorrow, Dr. Norman is not available, I will go ahead start antibiotics, request PICC line placement for long-term antibiotics, patient is agreeable for amputation now, there is no urgent need for surgical debridement, kindly reevaluate in the morning if Dr. Medeiros could see him although he is not on-call Diet: I highly doubt he will be taking to the OR for debridement or BKA tomorrow, I will go ahead and start him on consistent carb diet and moderate sliding scale for now Dilaudid for analgesia for osteomyelitis Patient is full code DVT prophylaxis Heparin Chronic kidney disease without acute exacerbation, creatinine seems to be around baseline 1.4 however I would reduce gabapentin dose to 103 times a day and start 300 mg., Hold Benzapril PLAN: Continue current antibiotics. Discussed with Dr. Medeiros who will see patient in consultation. Attestations Medical Necessity Statement*: Patient with diabetic foot infection requires close inpatient monitoring and treatment including surgical intervention. Coding Level of Care Code Acute Extension Service Specialist for [facility] Diagnoses Foot osteomyelitis, left M86.172 Osteomyelitis type: other acute Sepsis A41.9 Charcot-Cecy disease G60.0 PAD (peripheral artery disease) I73.9 Non-pressure chronic ulcer of other part of left foot with necrosis of bone L97.524 Charcot's arthropathy M14.60
[2020-02-25 13:22] LABS: Glucose Point of Care 228 mg/dL (70-110)
[2020-02-25] MEDS: vancomycin 1,500 MG/300 ML PIGGYBACK 200 MG IV (13:35)
[2020-02-25 16:50] LABS: Glucose Point of Care 97 mg/dL (70-110)
[2020-02-25] MEDS: tamsulosin 0.4 mg Capsule PO (17:42)
--- NOTE | 2020-02-25 18:09 | PM.CONSULT ---
Providers/Reason For Consult Consulting Physican/Specialty*: Armando Medeiros MD; orthopedic surgeries Reason for Consult*: Diabetic ulcer left foot Attending Physician: Maynor zAul MD Primary Care Provider: Angie Zarate MD History of Present Illness History of Present Illness Marcus Thompson is a 79 year old male with over 1 year history of a wound on the lateral aspect of his left foot. He has Charcot arthropathy and severe varus malalignment of the ankle and hindfoot. He wears an orthosis essentially walks on that arthrosis on the lateral aspect of his foot. Has been under the care of wound care receiving serial debridements. His states that this last week he began to experience rigors and chills. He was seen in the emergency room yesterday where he was diagnosed with a sepsis due to his nonhealing ulcer. He was managed with vancomycin and Zosyn and states he is again feeling better. He has been previously counseled regarding below-knee amputation and is now feeling that that is the best for his long-term function and health Meds/Allergies Home Medications and Allergies Home Medications Medication Instructions Recorded Confirmed Last Taken Type aspirin 81 mg tablet,delayed 81 mg PO DAILY@03/15/19 02/24/20 02/24/20 History release cholecalciferol (vitamin D3) 25 1,000 unit PO DAILY@03/15/19 02/24/20 02/24/20 History mcg (1,000 unit) capsule gabapentin 100 mg capsule 300 mg PO TID PRN #30 cap MDD 02/22/20 02/24/20 02/23/20 Rx caps amlodipine-benazepril 1 cap PO DAILY@02/24/20 02/24/20 02/24/20 History clopidogrel 75 mg PO DAILY@02/24/20 02/24/20 02/24/20 History glipizide 10 mg PO BID@02/24/20 02/24/20 02/24/20 History hydralazine 100 mg PO TID@,02/24/20 02/24/20 02/24/20 History pantoprazole 40 mg PO DAILY@02/24/20 02/24/20 02/24/20 History spironolacton-hydrochlorothiaz 1 tab PO DAILY@07 02/24/20 02/24/20 02/24/20 History tamsulosin 0.4 mg PO DAILY@19 02/24/20 02/24/20 02/23/20 History Allergies Allergy/AdvReac Type Severity Reaction Status Date / Time Penicillins Allergy Mild ADR-Nausea Verified 02/24/20 23:17 Current Medications Current Medications Generic Name Dose Route Start Last Admin Trade Name Bartq PRN Reason Stop Dose Admin Acetaminophen 325 - 650 mg 02/25/20 04:14 02/25/20 15:45 Acetaminophen 325 Mg Tablet PO 650 mg Q4H PRN Administration MILD PAIN OR INCREASE TEMP Amlodipine Besylate 10 mg 02/25/20 09:00 02/25/20 09:23 Amlodipine 10 Mg Tablet PO 10 mg DAILY DUGLAS Administration Aspirin 81 mg 02/25/20 07:00 02/25/20 06:54 Aspirin 81 Mg Ec Tablet PO 81 mg DAILY@07 DUGLAS Administration Clopidogrel Bisulfate 75 mg 02/25/20 07:00 02/25/20 06:54 Clopidogrel 75 Mg Tablet PO 75 mg DAILY@07 DUGLAS Administration Heparin Sodium (Beef Lung) 5,000 unit 02/24/20 21:20 02/25/20 13:40 Heparin 5,000 Unit/Ml Inj 1 Ml SUBCUT 5,000 unit Q8H DUGLAS Administration Hydralazine HCl 100 mg 02/25/20 07:00 02/25/20 17:42 Hydralazine 50 Mg Tablet PO 100 mg TID@07, DUGLAS Administration Piperacillin Sod/Tazobactam 50 mls @ 12.5 mls/hr 02/24/20 22:00 02/25/20 17:41 Sod 3.375 gm/ Sodium Chloride IV 12.5 mls/hr Q8H DUGLAS Administration Protocol Vancomycin/PEG/NADA/Lysine/Water 1,500 mg in 300 mls @ 200 mls/hr 02/25/20 14:00 02/25/20 13:35 Vancocin IV 200 mls/hr Q24H DUGLAS Administration Insulin Aspart 0 unit 02/24/20 21:20 02/25/20 17:13 Insulin Aspart 100 Unit/1 Ml SUBCUT Not Given WM&BEDTIME DUGLAS Protocol Pantoprazole Sodium 40 mg 02/25/20 07:00 02/25/20 06:[address] 40 Mg Tablet PO 40 mg DAILY@07 DUGLAS Administration Tamsulosin HCl 0.4 mg 02/25/20 19:00 02/25/20 17:42 Tamsulosin 0.4 Mg Capsule PO 0.4 mg DAILY@19 DUGLAS Administration PFSH Acute PFSH: Medical History (Updated 02/24/20 @ 23:39 by Shaquille Clayton MD, [facility] [place] BPH (benign prostatic hyperplasia) CAD (coronary artery disease) Charcot's arthropathy Diabetes GERD (gastroesophageal reflux disease) History of amputation of right great toe Hypertension Macular edema Obesity PAD (peripheral artery disease) Peripheral neuropathy Renal insufficiency Surgical History (Reviewed 02/24/20 @ 23:22 by Shaquille Clayton MD, [facility] [place] H/O eye surgery History of cardiac cath History of coronary artery stent placement Family History (Reviewed 02/24/20 @ 23:22 by Shaquille Clayton MD, [facility] [place] Denies family history of Diabetes Dementia Anesthesia complication Cancer Social History (Reviewed 02/24/20 @ 23:22 by Shaquille Clayton MD, [facility] [place] Smoking and tobacco status: former smoker Quit status (tobacco): has quit using tobacco Second hand smoke exposure: No Smoking risk assessment/counseling performed?: No Alcohol intake: never Desire information about alcohol rehabilitation?: No Counseling given: No Desire information about substance/drug rehabilitation?: No Counseling given: No Caregiver/support person: Yes Lives independently: Yes Household members: spouse Current occupational status: retired and disabled Current gender identity: Male Vitals/I&O/Wt Last Vital Signs Temp 99.6 F 02/25/20 16:21 Pulse 71 02/25/20 15:00 Resp 18 02/25/20 15:00 BP 111/49 02/25/20 15:00 Pulse Ox 92 02/25/20 15:00 02/25/20 02/25/20 02/25/20 06:59 14:59 22:59 Intake Total 350 / 350 290 / 290 120 / 410 Output Total 325 / 425 200 / 200 150 / 350 Balance 25 / -75 90 / 90 -30 / 60 Weight last 48 hrs Weight 232 lb Physical Exam Narrative: EXAM NARRATIVE: On examination of the patient's left lower extremity has severe varus of his ankle and hindfoot with the lateral aspect of his foot now acting is the weightbearing aspect. There is an ulcer centered over his fifth metatarsal head that is packed. There is diffuse duskiness from the foot up to the ankle but really no obvious erythema. I can express no drainage from the ulceration. He has absent sensation to the level of the ankle. His leg proximal to the ankle is warm and the skin is healthy. 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 He has a none functional, nonplantigrade left foot. I again told him that I think below-knee amputation would be the best option. I feel he would be much more functional in a well fitting below-knee amputation prosthesis then in his current boot. I feel that he has at risk for recurrent episodes of sepsis and significant medical comorbidities if left in his our current state. He is with his today and they are both tired of recurrent illness. They are agreeable to a left below-knee amputation. I discussed the procedure with him. I made them aware of the medical risks and they understand this. There certainly is a risk. We will do below-knee amputation may not heal. Is proximal skin looks good and I think it is very reasonable think that this will go on and do much better. We will set him up for surgery Thursday. 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
[2020-02-25 21:05] LABS: Glucose Point of Care 230 mg/dL (70-110)
[2020-02-26] VITALS (8 sets, daily range): BP systolic 107–133; BP diastolic 45–69; PULSE 59–67; RESP 17–20; TEMP 36.6–36.9; O2SAT 92–100
[2020-02-26] MEDS: HYDROmorphone 1 mg/mL INJ 1 mL IVP ×2 (00:04→20:04)
[2020-02-26] MEDS: acetaminophen 325 mg Tablet PO (00:05)
[2020-02-26] MEDS: piperacillin-tazobactam 3.375 GM in sodium chloride 0.9% (plus) 50 ML IV ×3 (01:32→17:07)
[2020-02-26] MEDS: heparin 5,000 unit/mL INJ 1 mL 5000 UNIT SUBCUT ×2 (06:16→13:26)
[2020-02-26] MEDS: hyDRALAzine 50 mg Tablet 100 MG PO (06:17)
[2020-02-26] MEDS: clopidogrel 75 mg Tablet PO (06:18)
[2020-02-26] MEDS: pantoprazole DR 40 mg Tablet PO (06:18)
[2020-02-26] MEDS: aspirin 81 mg EC Tablet PO (06:18)
[2020-02-26 06:41] LABS: Glucose Point of Care 112 mg/dL (70-110)
[2020-02-26 07:37] LABS: Basophils % 0.2 %; Eosinophils % 0.4 %; Hematocrit 27.2 % (42.0-52.0); Hemoglobin 8.7 g/dL (11.7-16.6); Lymphocytes # 1.3 10^3/uL (0.8-4.8); Lymphocytes % 15.3 %; Mean Corpuscular Hemoglobin 26.9 pg (28.0-34.0); Mean Corpuscular Volume 84.2 fL (80-94); Mean Platelet Volume 11.4 fL (7.4-10.4); Monocytes % 12.3 %; Neutrophils # 5.98 10^3/uL (1.8-7.7); Neutrophils % 71.2 %; Nucleated Red Blood Cells % 0 %; Platelet Count 220 10^3/cmm (130-400); Red Blood Count 3.23 10^6/uL (4.1-5.3); Red Cell Distribution Width 14.9 % (12.1-15.1); White Blood Count 8.4 10^3/uL (4.0-10.0)
[2020-02-26 08:02] LABS: Alanine Aminotransferase 47 U/L (0-41); Albumin Level 2.3 g/dL (3.5-5.2); Alkaline Phosphatase 69 IU/L (40-130); Anion Gap 15.6 (5-19); Aspartate Amino Transferase 41 U/L (0-40); Blood Urea Nitrogen 28 mg/dL (8-23); C Reactive Protein 259.6 mg/L (0.0-4.9); Calcium 8.5 mg/dL (8.5-10.5); Carbon Dioxide 21 mmol/L (22-29); Chloride 100 mmol/L (98-107); Globulin 3.9 g/dL (1.3-4.6); Glucose 100 mg/dL (65-115); Osmolality Calculated 282 mOsm/kg (285-295); Potassium 3.6 mmol/L (3.5-5.1); Sodium 133 mmol/L (136-145); Total Bilirubin 0.4 mg/dL (0.15-1.2); Total Protein 6.2 g/dL (6.6-8.7)
[2020-02-26 11:17] LABS: Glucose Point of Care 210 mg/dL (70-110)
[2020-02-26 14:15] LABS: Vancomycin Trough 12.1 ug/mL (10-15)
--- NOTE | 2020-02-26 14:22 | PM.PN ---
Subjective Subjective: Interval history: Patient reports feeling much better this morning. His left lower extremity warmness much improved. He was seen by Dr. Medeiros and the plan to proceed with below-knee amputation tomorrow morning. Reports that his appetite and oral intake improved and he ate all of his breakfast. Patient denies any chest pain or shortness of breath even with exertion. Vitals/I&O/Wt Last Vital Signs Temp 98.5 F 02/26/20 12:00 Pulse 66 02/26/20 12:00 Resp 20 H 02/26/20 12:00 BP 133/69 02/26/20 12:00 Pulse Ox 96 02/26/20 12:00 02/25/20 02/26/20 02/26/20 22:59 06:59 14:59 Intake Total 290 / 580 170 / 750 960 / 960 Output Total 500 / 700 400 / 1100 Balance -210 / -120 -230 / -350 960 / 960 Weight last 48 hrs Weight 105.233 kg Physical Exam Const: COMMON NORMALS: no acute distress and patient oriented x3 Resp: COMMON NORMALS: normal respiratory effort and clear to auscultation bilaterally AUSCULTATION: clear to auscultation bilaterally Cardio: COMMON NORMALS: regular rate, regular rhythm and S2 normal heart sound present RATE: regular rate RHYTHM: regular rhythm HEART SOUNDS: S2 normal heart sound present OTHER: No lower extremity edema GI: COMMON NORMALS: Normal to inspection, nondistended, normoactive bowel sounds present, Soft to palpation and non-tender PALPATION: Yes Soft to palpation Neuro: COMMON NORMALS: patient oriented x3 and no focal motor deficits Data : 02/26/20 07:21 02/26/20 07:21 Micro: Microbiology 02/24/20 09:49 Blood Culture - Preliminary Blood Gram positive cocci 02/24/20 18:25 Blood Culture - Preliminary Blood SPECIMEN COLLECTED A&P Assessment and plan (1) Foot osteomyelitis, left: In diabetic patient. Status: Acute Qualifiers: Osteomyelitis type: other acute Qualified Code(s): M86.172 - Other acute osteomyelitis, left ankle and foot (2) Sepsis: Status: Acute (3) Charcot-Cecy disease: Status: Acute (4) PAD (peripheral artery disease): Status: Acute (5) Non-pressure chronic ulcer of other part of left foot with necrosis of bone: Status: Acute (6) Charcot's arthropathy: Status: Acute Additional A&P Information Sepsis secondary to left foot osteomyelitis Previous microbiology report reviewed, wound culture report reviewed, wound care clinic reports reviewed Current data consistent with sepsis secondary to osteomyelitis Criteria met with fever, leukocytosis, tachypnea Start him on vancomycin and Zosyn, patient does not have penicillin allergy he had side effects to penicillin which was nausea and vomiting Wound culture sent Patient has been evaluated by multiple physicians and surgeons, Dr. Medeiros is well aware of his case who is not on-call tomorrow, Dr. Norman is not available, I will go ahead start antibiotics, request PICC line placement for long-term antibiotics, patient is agreeable for amputation now, there is no urgent need for surgical debridement, kindly reevaluate in the morning if Dr. Medeiros could see him although he is not on-call Diet: I highly doubt he will be taking to the OR for debridement or BKA tomorrow, I will go ahead and start him on consistent carb diet and moderate sliding scale for now Dilaudid for analgesia for osteomyelitis Patient is full code DVT prophylaxis Heparin Chronic kidney disease without acute exacerbation, creatinine seems to be around baseline 1.4 however I would reduce gabapentin dose to 103 times a day and start 300 mg., Hold Benzapril PLAN: Continue current antibiotics. Awaiting surgery Thursday morning. We will hold heparin until surgery. Patient has elevated risk for adverse perioperative cardiac outcome but since he is asymptomatic and denies any chest pain or shortness of breath even with exertion no further cardiac evaluation is currently needed. Attestations Medical Necessity Statement*: Patient with diabetic foot infection requires close inpatient monitoring and treatment including surgical intervention. 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
[2020-02-26] MEDS: vancomycin 1,500 MG/300 ML PIGGYBACK 200 MG IV (14:48)
[2020-02-26 16:58] LABS: Glucose Point of Care 211 mg/dL (70-110)
--- NOTE | 2020-02-26 19:44 | XRR_ITS ---
PROCEDURE INFORMATION: Exam: XR Left Hip with Pelvis when Performed Exam date and time: 02/26/2020 7:54 PM Age: 79 years old Clinical indication: Hip pain; Left hip; Additional info: Patient's hip popped causing extreme pain. TECHNIQUE: Imaging protocol: XR Left hip with pelvis when performed. Views: 2 or 3 views. COMPARISON: No relevant prior studies available. FINDINGS: There is spurring along the lateral margin of the acetabulum. No fracture is identified. The pubic rami are intact. The femoral head neck appear intact. There is no acute bony destruction. XR/XR hip LT 2-3V wo/w pel* [id number] IMPRESSION: 1. No evidence of fracture or dislocation. 2. No acute bony destruction.
[2020-02-26 21:01] LABS: Glucose Point of Care 184 mg/dL (70-110)
[2020-02-27] VITALS (27 sets, daily range): BP systolic 118–163; BP diastolic 53–75; PULSE 55–67; RESP 15–26; TEMP 36.2–37; O2SAT 87–97
[2020-02-27] MEDS: piperacillin-tazobactam 3.375 GM in sodium chloride 0.9% (plus) 50 ML IV ×3 (01:02→23:38)
[2020-02-27 05:15] LABS: Basophils % 0.1 %; Eosinophils # 0.2 10^3/uL (0.0-0.8); Eosinophils % 3.1 %; Hematocrit 29.6 % (42.0-52.0); Hemoglobin 9.4 g/dL (11.7-16.6); Lymphocytes # 1.6 10^3/uL (0.8-4.8); Lymphocytes % 22.9 %; Mean Corpuscular HGB Conc 31.8 g/dL (30.0-36.0); Mean Corpuscular Hemoglobin 26.6 pg (28.0-34.0); Mean Corpuscular Volume 83.6 fL (80-94); Mean Platelet Volume 11.5 fL (7.4-10.4); Monocytes # 0.8 10^3/uL (0.2-0.9); Monocytes % 11.8 %; Neutrophils # 4.13 10^3/uL (1.8-7.7); Neutrophils % 60.9 %; Nucleated Red Blood Cells % 0 %; Platelet Count 291 10^3/cmm (130-400); Red Blood Count 3.54 10^6/uL (4.1-5.3); Red Cell Distribution Width 14.6 % (12.1-15.1); White Blood Count 6.8 10^3/uL (4.0-10.0)
[2020-02-27 05:43] LABS: Alanine Aminotransferase 62 U/L (0-41); Albumin Level 2.5 g/dL (3.5-5.2); Alkaline Phosphatase 87 IU/L (40-130); Anion Gap 18.9 (5-19); Aspartate Amino Transferase 54 U/L (0-40); Blood Urea Nitrogen 32 mg/dL (8-23); Calcium 8.9 mg/dL (8.5-10.5); Carbon Dioxide 19 mmol/L (22-29); Chloride 107 mmol/L (98-107); Globulin 4.6 g/dL (1.3-4.6); Glucose 145 mg/dL (65-115); Magnesium 1.7 mg/dL (1.7-2.3); Osmolality Calculated 301 mOsm/kg (285-295); Potassium 3.9 mmol/L (3.5-5.1); Sodium 141 mmol/L (136-145); Total Bilirubin 0.4 mg/dL (0.15-1.2); Total Protein 7.1 g/dL (6.6-8.7)
[2020-02-27] MEDS: pantoprazole DR 40 mg Tablet PO (06:26)
[2020-02-27 06:46] LABS: Glucose Point of Care 143 mg/dL (70-110)
--- NOTE | 2020-02-27 07:23 | ANES.PREANE2 ---
Pre-Anesthetic Assessment Pre-Anesthetic Assessment: Height/Weight: Height 1.85 m Weight 105.233 kg Temp Pulse Resp BP Pulse Ox 97.8 F 67 18 136/58 97 02/27/20 04:12 02/27/20 04:12 02/27/20 04:12 02/27/20 04:12 02/27/20 04:12 Preop Diagnosis: Osteomyelitis left fifth metatarsal Proposed Procedure: Operation Date: 02/27/20 11:00 Proposed Procedures p Below Knee Amputation(Left) - Armando Medeiros MD Social: Social History: Tobacco (quit) and No alcohol Exam: Pre-Anes Outpt Exam: alert, oriented x 3, clear to auscultation bilaterally and regular rate & rhythm Airway: Submandibular: WNL Cervical ROM: WNL MP: 3 Dentition: Other (very poor dentation) History/ROS: No significant history except as noted Pulmonary: Pulmonary: COPD CV/HEM: CV/HEM: CAD and HTN : : Chronic renal Insufficiency Hepatic: Hepatic: None reported GI: GI: GERD Metabolic: Metabolic: DM and Hyperlipidemia Musc/skel: Musc/skel: OA/DJD Neuropsych: Neuropsych: Neuropathy (lower ext) Anesthetic Plan: ASA status: 3 Anesthesia: Anesthesia Evaluation and General Risk of > 500 ml blood loss (7ml/kg in children): Yes, adequate IV access and fluids planned Meds/Allergies Current Medications: Current Medications Generic Name Dose Route Start Last Admin Trade Name Freq PRN Reason Stop Dose Admin Acetaminophen 325 - 650 mg 02/25/20 04:14 02/26/20 00:05 Acetaminophen 32 5 Mg Tablet PO 650 mg Q4H PRN Administration MILD PAIN OR INCR EASE TEMP Aspirin 81 mg 02/25/20 07:00 02/26/20 06:18 Aspirin 81 Mg Ec Tablet PO 81 mg DAILY@07 DUGLAS Administration Heparin Sodium (Be ef Lung) 5,000 unit 02/24/20 21:20 02/26/20 13:26 Heparin 5,000 Un it/Ml Inj 1 Ml SUBCUT 5,000 unit Q8H DUGLAS Administration Hydromorphone HCl 1 mg 02/24/20 21:20 02/26/20 20:04 Hydromorphone 1 Mg/Ml Inj 1 Ml IVP 1 mg Q4H PRN Administration pIN Piperacillin Sod/T azobactam 50 mls @ 12.5 mls /hr 02/24/20 22:00 02/27/20 01:02 Sod 3.375 gm/ So dium Chloride IV 12.5 mls/hr Q8H DUGLAS Administration Protocol Vancomycin/PEG/NAD A/Lysine/Water 1,500 mg in 300 m ls @ 200 mls/hr 02/25/20 14:00 02/26/20 14:48 Vancocin IV 200 mls/hr Q24H DUGLAS Administration Insulin Aspart 0 unit 02/24/20 21:20 02/26/20 22:21 Insulin Aspart 1 00 Unit/1 Ml SUBCUT 6 unit WM&BEDTIME DUGLAS Administration Protocol Pantoprazole Sodiu m 40 mg 02/25/20 07:00 02/27/20 06:[address] 40 Mg Tablet PO 40 mg DAILY@07 DUGLAS Administration Tamsulosin HCl 0.4 mg 02/25/20 19:00 02/25/20 17:42 Tamsulosin 0.4 M g Capsule PO 0.4 mg DAILY@ DUGLAS Administration PFSH Anesthesia PFSH: Medical History BPH (benign prostatic hyperplasia) CAD (coronary artery disease) Charcot's arthropathy Diabetes GERD (gastroesophageal reflux disease) History of amputation of right great toe Hypertension Macular edema Obesity PAD (peripheral artery disease) Peripheral neuropathy Renal insufficiency Surgical History H/O eye surgery History of cardiac cath History of coronary artery stent placement Family History Denies family history of Diabetes Dementia Anesthesia complication Cancer Social History Smoking and tobacco status: former smoker Quit status (tobacco): has quit using tobacco Second hand smoke exposure: No Smoking risk assessment/counseling performed?: No Alcohol intake: never Desire information about alcohol rehabilitation?: No Counseling given: No Desire information about substance/drug rehabilitation?: No Counseling given: No Caregiver/support person: Yes Lives independently: Yes Household members: spouse Current occupational status: retired and disabled Current gender identity: Male Data Anesthesia CBC & Chem 7: 02/27/20 04:56 02/27/20 04:56 Other Labs: Laboratory Results - last 48 hr 02/25/20 02/25/20 02/25/20 05:58 10:46 13:20 WBC RBC Hgb Hct MCV MCH MCHC RDW Plt Count MPV Neut % (Auto) Lymph % (Auto) [place] % (Auto) Eos % (Auto) Baso % (Auto) Neut # (Auto) Lymph # (Auto) [place] # (Auto) Eos # (Auto) Baso # (Auto) Nucleated RBC % (auto) Nucleated RBCs # Sodium 132 L Potassium 3.5 Chloride 100 Carbon Dioxide 20 L Anion Gap 15.5 BUN 23 Creatinine 1.5 H GFR Calculation Glucose 131 H POC Glucose 214 H 228 H Calculated Osmolality 279 L Calcium 8.3 L Magnesium Total Bilirubin AST ALT Alkaline Phosphatase C-Reactive Protein Total Protein Albumin Globulin Vancomycin Trough 02/25/20 02/25/20 02/26/20 16:41 21:02 06:38 WBC RBC Hgb Hct MCV MCH MCHC RDW Plt Count MPV Neut % (Auto) Lymph % (Auto) [place] % (Auto) Eos % (Auto) Baso % (Auto) Neut # (Auto) Lymph # (Auto) [place] # (Auto) Eos # (Auto) Baso # (Auto) Nucleated RBC % (auto) Nucleated RBCs # Sodium Potassium Chloride Carbon Dioxide Anion Gap BUN Creatinine GFR Calculation Glucose POC Glucose 97 230 H 112 H Calculated Osmolality Calcium Magnesium Total Bilirubin AST ALT Alkaline Phosphatase C-Reactive Protein Total Protein Albumin Globulin Vancomycin Trough 02/26/20 02/26/20 02/26/20 07:21 07:21 11:03 WBC 8.4 RBC 3.23 L Hgb 8.7 L Hct 27.2 L MCV 84.2 MCH 26.9 L MCHC 32.0 RDW 14.9 Plt Count 220 MPV 11.4 H Neut % (Auto) 71.2 Lymph % (Auto) 15.3 [place] % (Auto) 12.3 Eos % (Auto) 0.4 Baso % (Auto) 0.2 Neut # (Auto) 5.98 Lymph # (Auto) 1.3 [place] # (Auto) 1.0 H Eos # (Auto) 0.0 Baso # (Auto) 0.0 Nucleated RBC % (auto) 0 Nucleated RBCs # 0.0 Sodium 133 L Potassium 3.6 Chloride 100 Carbon Dioxide 21 L Anion Gap 15.6 BUN 28 H Creatinine 1.5 H GFR Calculation Not Reportable Glucose 100 POC Glucose 210 H Calculated Osmolality 282 L Calcium 8.5 Magnesium Total Bilirubin 0.4 AST 41 H ALT 47 H Alkaline Phosphatase 69 C-Reactive Protein 259.6 H Total Protein 6.2 L Albumin 2.3 L Globulin 3.9 Vancomycin Trough 02/26/20 02/26/20 02/26/20 13:23 16:49 20:50 WBC RBC Hgb Hct MCV MCH MCHC RDW Plt Count MPV Neut % (Auto) Lymph % (Auto) [place] % (Auto) Eos % (Auto) Baso % (Auto) Neut # (Auto) Lymph # (Auto) [place] # (Auto) Eos # (Auto) Baso # (Auto) Nucleated RBC % (auto) Nucleated RBCs # Sodium Potassium Chloride Carbon Dioxide Anion Gap BUN Creatinine GFR Calculation Glucose POC Glucose 211 H 184 H Calculated Osmolality Calcium Magnesium Total Bilirubin AST ALT Alkaline Phosphatase C-Reactive Protein Total Protein Albumin Globulin Vancomycin Trough 12.1 02/27/20 02/27/20 02/27/20 04:56 04:56 06:27 WBC 6.8 RBC 3.54 L Hgb 9.4 L Hct 29.6 L MCV 83.6 MCH 26.6 L MCHC 31.8 RDW 14.6 Plt Count 291 MPV 11.5 H Neut % (Auto) 60.9 Lymph % (Auto) 22.9 [place] % (Auto) 11.8 Eos % (Auto) 3.1 Baso % (Auto) 0.1 Neut # (Auto) 4.13 Lymph # (Auto) 1.6 [place] # (Auto) 0.8 Eos # (Auto) 0.2 Baso # (Auto) 0.0 Nucleated RBC % (auto) 0 Nucleated RBCs # 0.0 Sodium 141 Potassium 3.9 Chloride 107 Carbon Dioxide 19 L Anion Gap 18.9 BUN 32 H Creatinine 1.3 H GFR Calculation Not Reportable Glucose 145 H POC Glucose 143 H Calculated Osmolality 301 H Calcium 8.9 Magnesium 1.7 Total Bilirubin 0.4 AST 54 H ALT 62 H Alkaline Phosphatase 87 C-Reactive Protein Total Protein 7.1 Albumin 2.5 L Globulin 4.6 Vancomycin Trough Micro: Microbiology 02/24/20 18:25 Blood Culture - Preliminary Blood NEGATIVE TO DATE 02/24/20 09:49 Blood Culture - Preliminary Blood Gram positive cocci Cardiac Studies: No Data to Display
[2020-02-27] MEDS: sodium chloride 0.9% 1,000 ML 30 ML IV (07:45)
--- NOTE | 2020-02-27 09:22 | PC.SOCIAL ---
IMM Update Pg.2 of IMM updated. Patient in surgery at this time. Copy left at bedside.
--- NOTE | 2020-02-27 09:36 | P.OP_ITS ---
Operative Report Date of procedure: February 27, 2020 Pre-op Diagnosis: Osteomyelitis left fifth metatarsal Post-op diagnosis: same Post-op Findings: Same Procedure Done: Left below-knee amputation Pathology: other (Left lower extremity) Surgeon: Armando Medeiros Anesthesia: General Estimated blood loss (mL): 100 Tourniquet time (min): 10 Complications: None Findings: Patient had the previously described ulcer over the lateral aspect of the left foot and a fixed varus deformity of the hindfoot and heel. The patient had good vascularity of his gastrocsoleus musculature flap Condition: stable Disposition: PACU Brief History: Mr. Thompson is a 79-year-old male with a nonhealing ulcer on the lateral aspect of the left foot and recurrent septicemia. He had severe Charcot degeneration with varus alignment of the heel and foot. Below-knee amputation was chosen to create a better lower extremity for weightbearing and limiting the source of his sepsis Procedure: The patient was taken to the operating room and given a general a nesthesia. He is prepped and draped in the supine position with a tourniquet on the left thigh. Initially a short anterior and long posterior flap were fashioned with a scalpel blade at a point approximately 16 cm distal to the joint line. Dissection was carried down anteriorly with electrocautery to the tibia. Periosteum was lightly elevated approximately an oscillating saw used to transect the tibia. An oblique fibular cut was made just proximally. An amputation knife was then used to fashion a longer posterior flap. The tibialis posterior vessels were ligated with 0 Vicryl. Tibial nerve and peroneal nerve were identified and transected more proximally with electrocautery. The tourniquet was deflated with the remaining hemostasis accomplished with electrocautery. Drill holes were made the anterior tibia and the gastrocsoleus fascia was reflected anteriorly and sutured to the anterior tibia with ultra braid suture. The anterior and posterior fascia were approximated with 0 Vicryl, the subcutaneous tissues with 2-0 Vicryl, and skin with skin jodi. Xeroflo gauze, 4 x 4's, ABD pads, Kerlix and web roll applied. Posterior splint was applied wrapping anteriorly up over the low knee amputation stump. The patient was extubated taken recovery room in stable condition.
[2020-02-27] MEDS: morphine 4 mg/mL SDV 1 mL 2 MG IVP ×2 (09:38→09:58)
[2020-02-27] MEDS: fentaNYL 50 mcg/mL INJ 2mL IVP ×2 (09:44→09:51)
--- NOTE | 2020-02-27 10:08 | SUR.PHASEI ---
0926 PT TO PACU 11 AWAKE ALERT RESTLESS DENIES PAIN BUT MOANS AND IS RESTLESS, VSS MONITOR SR WITH PAC AND OCC PVC NOTED DR COOPER AT BEDSIDE AND STATES HIS RYTHM WAS THIS PRIOR TO SURGERY.
[2020-02-27] MEDS: sodium chloride 0.9% 1,000 ML 80 ML IV ×2 (10:48→21:35)
[2020-02-27] MEDS: HYDROcodone-acetaminophen 5-325 mg Tablet PO ×3 (10:58→20:43)
[2020-02-27 11:05] LABS: Glucose Point of Care 188 mg/dL (70-110)
--- NOTE | 2020-02-27 12:02 | ANE.PACU2 ---
Inpatient post-anesthesia follow up: Airway intact: Yes Vital signs: Temperature 97.7 F Pulse Rate [Left R adial] 76 Pulse Rate 64 Respiratory Rate 18 Blood Pressure [Le ft Arm] 152/67 Blood Pressure 156/70 Pulse Oximetry 97 Oxygen Delivery Me thod Nasal Cannula Oxygen Flow Rate 3 Fraction of Inspir ed Oxygen Hydration adequate: Yes Nausea and vomiting: No Pain level: 1 Mental status: Baseline
[2020-02-27] MEDS: heparin 5,000 unit/mL INJ 1 mL 5000 UNIT SUBCUT ×2 (14:47→20:43)
[2020-02-27] MEDS: vancomycin 1,500 MG/300 ML PIGGYBACK 200 MG IV (14:47)
[2020-02-27] MEDS: aspirin 81 mg EC Tablet PO (14:47)
--- NOTE | 2020-02-27 16:32 | PM.PN ---
Subjective Subjective: Interval history: Patient was taken to OR in am, Seen post op. No new clinical events overnight. Medications: Reviewed: Yes Vitals/I&O/Wt Last Vital Signs Temp 97.7 F 02/27/20 11:05 Pulse 64 02/27/20 11:05 Resp 18 02/27/20 11:05 BP 156/70 02/27/20 11:05 Pulse Ox 97 02/27/20 11:05 02/27/20 02/27/20 02/27/20 06:59 14:59 22:59 Intake Total 290 / 290 Output Total 200 / 850 400 / 400 Balance -200 / 510 -110 / -110 Physical Exam Const: COMMON NORMALS: no acute distress and patient oriented x3 Resp: COMMON NORMALS: normal respiratory effort and clear to auscultation bilaterally AUSCULTATION: clear to auscultation bilaterally Cardio: COMMON NORMALS: regular rate, regular rhythm and S2 normal heart sound present RATE: regular rate RHYTHM: regular rhythm HEART SOUNDS: S2 normal heart sound present OTHER: No lower extremity edema GI: COMMON NORMALS: Normal to inspection, nondistended, normoactive bowel sounds present, Soft to palpation and non-tender PALPATION: Yes Soft to palpation Extremity: NARRATIVE EXTREMITY EXAM: Post op BKA Neuro: COMMON NORMALS: patient oriented x3 and no focal motor deficits Data : 02/27/20 04:56 02/27/20 04:56 Micro: Microbiology 02/24/20 18:25 Blood Culture - Preliminary Blood NEGATIVE TO DATE A&P Assessment and plan (1) Foot osteomyelitis, left: In diabetic patient. Status: Acute Qualifiers: Osteomyelitis type: other acute Qualified Code(s): M86.172 - Other acute osteomyelitis, left ankle and foot (2) Sepsis: Status: Acute (3) Charcot-Cecy disease: Status: Acute (4) PAD (peripheral artery disease): Status: Acute (5) Non-pressure chronic ulcer of other part of left foot with necrosis of bone: Status: Acute (6) Charcot's arthropathy: Status: Acute Additional A&P Information Sepsis secondary to left foot osteomyelitis - Continue vancomcyin pharmacy to dose - Zosyn 3.375g IV q8hr - Follow up on culture - Ortho on board - S/p amputation POD #0 - Follow up on OR culture - path, assess margins - Pain control - PICC line was placed - Will assess need for detention abx - d/w Dr. Medeiros Chronic stage 3 kidney disease - Cr at baseline - 1.3 today - Renally dose medication Hypertension - Hydralazine 100 mg PO TID Diabetes Mellitus with neuropathy - Resume carb consistent diet - Sliding scale insulin - Gabapentin PAD - Resume antiplatelets when ok with surgery DVT ppx - Resume heparin when ok with surgery Attestations Medical Necessity Statement*: Will require additional days in hospital management of postop care and IV antibiotics. Time Spent in Patient Care: Greater than 35 minutes (>than 50% of time spent in counselling and/or direct pt care on unit). Coding Level of Care Code Acute Scaffolding Helper for g Fwd Exam Detailed Diagnoses Foot osteomyelitis, left M86.172 Osteomyelitis type: other acute Sepsis A41.9 Charcot-Cecy disease G60.0 PAD (peripheral artery disease) I73.9 Non-pressure chronic ulcer of other part of left foot with necrosis of bone L97.524 Charcot's arthropathy M14.60
[2020-02-27] MEDS: gabapentin 100 mg Capsule PO (16:43)
[2020-02-27] MEDS: tamsulosin 0.4 mg Capsule PO (17:20)
[2020-02-27 17:24] LABS: Glucose Point of Care 257 mg/dL (70-110)
[2020-02-27] MEDS: HYDROmorphone 1 mg/mL INJ 1 mL IVP ×2 (17:33→23:36)
--- NOTE | 2020-02-27 18:23 | PC.PT ---
Patient has declined 2 attempts at PT evaluation today due to uncontrolled pain; will reattempt tomorrow
[2020-02-27 21:03] LABS: Glucose Point of Care 188 mg/dL (70-110)
[2020-02-28] VITALS (9 sets, daily range): BP systolic 125–162; BP diastolic 62–71; PULSE 59–69; RESP 16–18; TEMP 36.6–36.9; O2SAT 94–98
[2020-02-28] MEDS: HYDROcodone-acetaminophen 5-325 mg Tablet PO (04:35)
[2020-02-28] MEDS: heparin 5,000 unit/mL INJ 1 mL 5000 UNIT SUBCUT ×3 (04:35→21:09)
[2020-02-28] MEDS: aspirin 81 mg EC Tablet PO (06:19)
[2020-02-28] MEDS: pantoprazole DR 40 mg Tablet PO (06:19)
[2020-02-28] MEDS: gabapentin 100 mg Capsule PO (06:19)
[2020-02-28 06:42] LABS: Glucose Point of Care 141 mg/dL (70-110)
[2020-02-28 06:55] LABS: Basophils % 0.4 %; Eosinophils # 0.2 10^3/uL (0.0-0.8); Eosinophils % 2.4 %; Hematocrit 27.5 % (42.0-52.0); Hemoglobin 8.7 g/dL (11.7-16.6); Lymphocytes # 1.2 10^3/uL (0.8-4.8); Lymphocytes % 16.1 %; Mean Corpuscular HGB Conc 31.6 g/dL (30.0-36.0); Mean Corpuscular Volume 85.4 fL (80-94); Mean Platelet Volume 11.1 fL (7.4-10.4); Monocytes # 0.9 10^3/uL (0.2-0.9); Monocytes % 12.6 %; Neutrophils # 4.63 10^3/uL (1.8-7.7); Neutrophils % 64.9 %; Nucleated Red Blood Cells % 0 %; Platelet Count 323 10^3/cmm (130-400); Red Blood Count 3.22 10^6/uL (4.1-5.3); Red Cell Distribution Width 15.2 % (12.1-15.1); White Blood Count 7.1 10^3/uL (4.0-10.0)
[2020-02-28 07:16] LABS: Alanine Aminotransferase 44 U/L (0-41); Albumin Level 2.5 g/dL (3.5-5.2); Alkaline Phosphatase 86 IU/L (40-130); Anion Gap 14.1 (5-19); Aspartate Amino Transferase 33 U/L (0-40); Blood Urea Nitrogen 25 mg/dL (8-23); Calcium 8.2 mg/dL (8.5-10.5); Carbon Dioxide 19 mmol/L (22-29); Chloride 106 mmol/L (98-107); Globulin 3.8 g/dL (1.3-4.6); Glucose 137 mg/dL (65-115); Magnesium 1.5 mg/dL (1.7-2.3); Osmolality Calculated 287 mOsm/kg (285-295); Potassium 4.1 mmol/L (3.5-5.1); Sodium 135 mmol/L (136-145); Total Bilirubin 0.3 mg/dL (0.15-1.2); Total Protein 6.3 g/dL (6.6-8.7)
--- NOTE | 2020-02-28 07:58 | P.PN_ITS ---
Subjective Subjective: Interval history: Complaining of pain left lower extremity. Passing urine. Good p.o. intake. Vitals/I&O/Wt Last Vital Signs Temp 98.1 F 02/28/20 07:16 Pulse 69 02/28/20 07:16 Resp 18 02/28/20 07:16 BP 162/64 02/28/20 07:16 Pulse Ox 94 02/28/20 07:16 02/27/20 02/28/20 02/28/20 22:59 06:59 14:59 Intake Total 1152.667 / 1442.667 Output Total 950 / 1350 400 / 1750 Balance 202.667 / 92.667 -400 / -307.333 Physical Exam Narrative: EXAM NARRATIVE: Left lower extremity dressing clean and dry. Knee in extension and splint. Data : 02/28/20 06:33 02/28/20 06:33 A&P Assessment and plan (1) Status post below-knee amputation of left lower extremity: Patient with expected pain. Will increase oral pain medications. Will need fci at discharge. Okay for discharge per orthopedics. Would leave splint/dressing in place for 2 weeks until wound stabilized and pain improved Status: Acute Attestations Medical Necessity Statement*: Okay for fci discharge per Ortho. Coding Level of Care Code Acute Information Assurance Analyst for Poli Harris Diagnoses Status post below-knee amputation of left lower extremity Z89.512
[2020-02-28] MEDS: piperacillin-tazobactam 3.375 GM in sodium chloride 0.9% (plus) 50 ML IV (08:06)
[2020-02-28] MEDS: sodium chloride 0.9% 1,000 ML 80 ML IV (10:13)
[2020-02-28] MEDS: oxyCODONE 5 mg IR Tab/Cap 10 MG PO ×3 (10:13→23:51)
[2020-02-28 10:47] LABS: Glucose Point of Care 199 mg/dL (70-110)
--- NOTE | 2020-02-28 12:22 | P.PN_ITS ---
Subjective Subjective: Interval history: No new clinical events overnight Afebrile Pain under control this am Medications: Reviewed: Yes Vitals/I&O/Wt Last Vital Signs Temp 98.1 F 02/28/20 11:20 Pulse 62 02/28/20 11:20 Resp 18 02/28/20 11:20 BP 125/62 02/28/20 11:20 Pulse Ox 96 02/28/20 11:20 02/27/20 02/28/20 02/28/20 22:59 06:59 14:59 Intake Total 1152.667 / 1442.667 50 / 4845.551 9515 / 1360 Output Total 950 / 1350 400 / 1750 200 / 200 Balance 202.667 / 92.667 -350 / -978.175 6926 / 1160 Physical Exam Const: COMMON NORMALS: no acute distress and patient oriented x3 Resp: COMMON NORMALS: normal respiratory effort and clear to auscultation bilaterally AUSCULTATION: clear to auscultation bilaterally Cardio: COMMON NORMALS: regular rate, regular rhythm and S2 normal heart sound present RATE: regular rate RHYTHM: regular rhythm HEART SOUNDS: S2 normal heart sound present OTHER: No lower extremity edema GI: COMMON NORMALS: Normal to inspection, nondistended, normoactive bowel sounds present, Soft to palpation and non-tender PALPATION: Yes Soft to palpation Extremity: NARRATIVE EXTREMITY EXAM: Post op BKA Neuro: COMMON NORMALS: patient oriented x3 and no focal motor deficits Data : 02/28/20 06:33 02/28/20 06:33 Micro: Microbiology 02/24/20 09:49 Blood Culture - Preliminary Blood Staphylococcus aureus A&P Assessment and plan (1) Foot osteomyelitis, left: In diabetic patient. Status: Resolved Qualifiers: Osteomyelitis type: other acute Qualified Code(s): M86.172 - Other acute osteomyelitis, left ankle and foot (2) Sepsis: Status: Acute (3) Charcot-Cecy disease: Status: Acute (4) PAD (peripheral artery disease): Status: Acute (5) Non-pressure chronic ulcer of other part of left foot with necrosis of bone: Status: Acute (6) Charcot's arthropathy: Status: Acute Additional A&P Information Sepsis due to MSSA bacteremia with LLE osteomylitis s/p BKA POD 1 - Blood culture on 02/23 - MSSA 03/12 tubes - Repeat blood culture today - If negative in 24hr will place PICC line - D/C Vancomycin and zosyn - Change to daily Rocephin 2g q24hr - Plan to discharge on IV abx - Post op management per ortho Hypomagnesemia - Mg 1.5 - Replace today - Repeat in AM Chronic stage 3 kidney disease - Cr at baseline - 1.3 - > 1.1 - Saline lock IVF Hypertension - Hydralazine 100 mg PO TID Diabetes Mellitus with neuropathy - Resume carb consistent diet - Sliding scale insulin - Gabapentin PAD - On antiplatelet therapy DVT ppx - Heparin 5000 units q8hr Attestations Medical Necessity Statement*: Will require further hospitalization for post op care, IV abx , repeat culture and discharge placement arrangements. Time Spent in Patient Care: Greater than 35 minutes (>than 50% of time spent in counselling and/or direct pt care on unit) . Coding Level of Care Code Acute Invoicing Machine Operator for Poli Harris Diagnoses Foot osteomyelitis, left M86.172 Osteomyelitis type: other acute Sepsis A41.9 Charcot-Cecy disease G60.0 PAD (peripheral artery disease) I73.9 Non-pressure chronic ulcer of other part of left foot with necrosis of bone L 97.524 Charcot's arthropathy M14.60
[2020-02-28] MEDS: magnesium sulfate premix 2 GM/50 ML PIGGYBACK IV (13:13)
[2020-02-28] MEDS: cefTRIAXone 2,000 MG in sodium chloride 0.9% (plus) 50 ML 100 MG IV (14:18)
[2020-02-28 16:51] LABS: Glucose Point of Care 181 mg/dL (70-110)
[2020-02-28] MEDS: tamsulosin 0.4 mg Capsule PO (18:05)
[2020-02-28 20:47] LABS: Glucose Point of Care 229 mg/dL (70-110)
[2020-02-29] VITALS (8 sets, daily range): BP systolic 138–169; BP diastolic 54–72; PULSE 55–67; RESP 16–18; TEMP 36.4–37.1; O2SAT 91–98
[2020-02-29] MEDS: oxyCODONE 5 mg IR Tab/Cap 10 MG PO ×3 (03:41→20:25)
--- NOTE | 2020-02-29 05:24 | PC.NURSE ---
SHIFT SUMMARY Has rested well tonight. Has been medicated with po OXYIR for pain to Left leg BKA. Dressing/kamran wrap to left stump incision is clean & dry. Has received po OXYIR for pain tonight. Voiding per urinal. Is hoping to go home soon. Says he does not want to go to SNF because he has Home Health already
[2020-02-29] MEDS: pantoprazole DR 40 mg Tablet PO (06:02)
[2020-02-29] MEDS: aspirin 81 mg EC Tablet PO (06:02)
[2020-02-29] MEDS: heparin 5,000 unit/mL INJ 1 mL 5000 UNIT SUBCUT ×3 (06:02→20:25)
[2020-02-29 06:18] LABS: Glucose Point of Care 138 mg/dL (70-110)
--- NOTE | 2020-02-29 07:52 | PM.PN ---
Subjective Subjective: Interval history: Pain much better. In good spirits. Tolerating po intake Vitals/I&O/Wt Last Vital Signs Temp 98.0 F 02/29/20 07:46 Pulse 58 L 02/29/20 07:46 Resp 16 02/29/20 07:46 BP 169/72 02/29/20 07:46 Pulse Ox 96 02/29/20 07:46 02/28/20 02/29/20 02/29/20 22:59 06:59 14:59 Intake Total 360 / 1840 300 / 2140 Output Total 1150 / 1800 525 / 2325 Balance -790 / 40 -225 / -185 Physical Exam Narrative: EXAM NARRATIVE: Left LE dressing/splint clean and dry Data : 02/28/20 06:33 02/28/20 06:33 Micro: Microbiology 02/24/20 09:49 Blood Culture - Preliminary Blood Staphylococcus aureus 02/28/20 13:49 Blood Culture - Preliminary Blood SPECIMEN COLLECTED 02/28/20 13:43 Blood Culture - Preliminary Blood SPECIMEN COLLECTED A&P Assessment and plan (1) Status post below-knee amputation of left lower extremity: Doing well. Will dc splint in clinic in 2 weeks. Status: Acute Attestations Medical Necessity Statement*: As per medicine. Hopefully can discharge home. Coding Level of Care Code Acute Rent Control Office Manager for Poli Harris Diagnoses Status post below-knee amputation of left lower extremity Z89.512
--- NOTE | 2020-02-29 10:19 | P.PN_ITS ---
Subjective Subjective: Interval history: Patient was doing well overnight. No new clinical events this morning. Pain was under control. No fevers, chills, nausea vomiting. Discussed with him regarding discharge planning he stated he is willing to go to [facility] otherwise would want to go home with home care. Medications: Reviewed: Yes Vitals/I&O/Wt Last Vital Signs Temp 98.0 F 02/29/20 07:46 Pulse 58 L 02/29/20 07:46 Resp 17 02/29/20 10:14 BP 169/72 02/29/20 07:46 Pulse Ox 96 02/29/20 10:14 02/28/20 02/29/20 02/29/20 22:59 06:59 14:59 Intake Total 360 / 1840 300 / 2140 240 / 240 Output Total 1150 / 1800 525 / 2325 Balance -790 / 40 -225 / -185 240 / 240 Physical Exam Const: COMMON NORMALS: no acute distress and patient oriented x3 Resp: COMMON NORMALS: normal respiratory effort and clear to auscultation bilaterally AUSCULTATION: clear to auscultation bilaterally Cardio: COMMON NORMALS: regular rate, regular rhythm and S2 normal heart sound present RATE: regular rate RHYTHM: regular rhythm HEART SOUNDS: S2 normal heart sound present OTHER: No lower extremity edema GI: COMMON NORMALS: Normal to inspection, nondistended, normoactive bowel sounds present, Soft to palpation and non-tender PALPATION: Yes Soft to palpation Extremity: NARRATIVE EXTREMITY EXAM: Post op BKA Neuro: COMMON NORMALS: patient oriented x3 and no focal motor deficits Data : 02/28/20 06:33 02/28/20 06:33 Micro: Microbiology 02/24/20 09:49 Blood Culture - Preliminary Blood Staphylococcus aureus 02/28/20 13:49 Blood Culture - Preliminary Blood SPECIMEN COLLECTED 02/28/20 13:43 Blood Culture - Preliminary Blood SPECIMEN COLLECTED A&P Assessment and plan (1) Foot osteomyelitis, left: In diabetic patient. Status: Resolved Qualifiers: Osteomyelitis type: other acute Qualified Code(s): M86.172 - Other acute osteomyelitis, left ankle and foot (2) Sepsis: Status: Acute (3) Charcot-Cecy disease: Status: Acute (4) PAD (peripheral artery disease): Status: Acute (5) Non-pressure chronic ulcer of other part of left foot with necrosis of bone: Status: Acute (6) Charcot's arthropathy: Status: Acute Additional A&P Information Sepsis due to MSSA bacteremia with LLE osteomylitis s/p BKA POD 2 - Blood culture on 02/23 - MSSA 2/4 tubes - Repeat blood culture 02/27- > NGTD / Remains afebrile - PICC line placement today - D/C Vancomycin and zosyn - Change to daily Rocephin 2g q24hr - Plan to discharge on IV abx - Would prefer cefaxolin however due to frequency of dosing will use rocephin - Continue until 03/13/2019 - Post op management per ortho - Wound care management per ortho Hypomagnesemia - Mg 1.5 - Repeat pending today Chronic stage 3 kidney disease - Cr at baseline - 1.3 - > 1.1 Hypertension - Hydralazine 100 mg PO TID - Resume norvasc 10 mg PO daily Diabetes Mellitus with neuropathy - Resume carb consistent diet - Sliding scale insulin - Gabapentin PAD - On antiplatelet therapy DVT ppx - Heparin 5000 units q8hr Disposition Will place PICC line and arrange antibiotics. Case management working on discharge placement to [facility]. If not accepted then proceed with home with home care. Attestations Medical Necessity Statement*: Will require further hospitalization for IV antibiotics and discharge placement arrangement Time Spent in Patient Care: Greater than 35 minutes (>than 50% of time spent in counselling and/or direct pt care on unit) . Coding Level of Care Code Acute Map Colorer for Poli Harris Diagnoses Foot osteomyelitis, left M86.172 Osteomyelitis type: other acute Sepsis A41.9 Charcot-Cecy disease G60.0 PAD (peripheral artery disease) I73.9 Non-pressure chronic ulcer of other part of left foot with necrosis of bone L97.524 Charcot's arthropathy M14.60
--- NOTE | 2020-02-29 10:55 | PC.SOCIAL ---
IMM Updated Updated pt on Pg 2 IMM. No questions voiced. Provided pt a copy. Signed, dated, & timed copy in chart.
[2020-02-29 11:01] LABS: Hematocrit 27.4 % (42.0-52.0); Hemoglobin 8.7 g/dL (11.7-16.6); Mean Corpuscular HGB Conc 31.8 g/dL (30.0-36.0); Mean Corpuscular Hemoglobin 27.4 pg (28.0-34.0); Mean Corpuscular Volume 86.2 fL (80-94); Mean Platelet Volume 11.5 fL (7.4-10.4); Platelet Count 357 10^3/cmm (130-400); Red Blood Count 3.18 10^6/uL (4.1-5.3); Red Cell Distribution Width 15.1 % (12.1-15.1); White Blood Count 8.3 10^3/uL (4.0-10.0)
--- NOTE | 2020-02-29 11:11 | XR_ITS ---
WS: [id number] PORTABLE CHEST HISTORY: PICC LINE INSERTION COMPARISON: 02/24/2020 Interval placement of a right-sided PICC line with tip in the distal SVC. Continued mild interstitial thickening throughout both lungs with no improvement or progression. No p leural effusion or pneumothorax. Cardiac size: Normal. Mediastinum/Aorta: Mild atherosclerosis aorta. No osseous abnormality seen. XR/XR chest 1V portable [id number] IMPRESSION: 1. Satisfactory placement of a RIGHT PICC line. 2. Persistent scattered pulmonary opacifications without improvement.
[2020-02-29 11:12] LABS: Glucose Point of Care 228 mg/dL (70-110)
[2020-02-29 11:40] LABS: Alanine Aminotransferase 36 U/L (0-41); Albumin Level 2.5 g/dL (3.5-5.2); Alkaline Phosphatase 102 IU/L (40-130); Anion Gap 11.9 (5-19); Aspartate Amino Transferase 32 U/L (0-40); Blood Urea Nitrogen 15 mg/dL (8-23); Carbon Dioxide 21 mmol/L (22-29); Chloride 107 mmol/L (98-107); Glucose 200 mg/dL (65-115); Magnesium 1.7 mg/dL (1.7-2.3); Osmolality Calculated 288 mOsm/kg (285-295); Potassium 3.9 mmol/L (3.5-5.1); Sodium 136 mmol/L (136-145); Total Bilirubin 0.3 mg/dL (0.15-1.2); Total Protein 6.5 g/dL (6.6-8.7)
[2020-02-29 12:12] LABS: Slide Review Slide Review Perform
[2020-02-29 12:19] LABS: Absolute Eosinophils 0.2 10^3/cmm (0.0-0.7); Absolute Segmented Neutrophil 5.7 10/cmm (1.6-7.1); Band Neutrophils Absolute 0.2 10^3/cmm (0.0-1.2); Eosinophils 3 %; Lymphocytes 12 %; Monocytes Absolute 0.8 10^3/cmm (0.1-0.6); Segmented Neutrophils 69 %; Total Cells Counted 100 (0-100)
[2020-02-29] MEDS: amlodipine 10 mg Tablet PO (12:20)
[2020-02-29 12:23] LABS: Platelet Estimate Normal (Normal)
[2020-02-29] MEDS: cefTRIAXone 2,000 MG in sodium chloride 0.9% (plus) 50 ML 100 MG IV (14:34)
[2020-02-29 17:18] LABS: Glucose Point of Care 220 mg/dL (70-110)
[2020-02-29] MEDS: tamsulosin 0.4 mg Capsule PO (18:09)
[2020-02-29 20:25] LABS: Glucose Point of Care 195 mg/dL (70-110)
[2020-02-29] MEDS: gabapentin 100 mg Capsule PO (20:25)
[2020-02-29] MEDS: acetaminophen 325 mg Tablet PO (23:49)
[2020-03-01] VITALS (9 sets, daily range): BP systolic 120–189; BP diastolic 57–73; PULSE 58–70; RESP 16–20; TEMP 36.4–37.1; O2SAT 92–96
--- NOTE | 2020-03-01 00:36 | PC.NURSE ---
Pain Pt. is refusing pain medication at this time. Pt. states he will notify nursing staff when he is ready for his Oxycodone.
--- NOTE | 2020-03-01 01:49 | PC.NURSE ---
Assumed pt care at this time. Pt is currently resting in bed with no signs of distress.
[2020-03-01] MEDS: oxyCODONE 5 mg IR Tab/Cap 10 MG PO ×3 (02:51→14:16)
[2020-03-01 06:17] LABS: Glucose Point of Care 134 mg/dL (70-110)
[2020-03-01] MEDS: heparin 5,000 unit/mL INJ 1 mL 5000 UNIT SUBCUT ×3 (06:24→22:32)
[2020-03-01] MEDS: pantoprazole DR 40 mg Tablet PO (06:26)
[2020-03-01] MEDS: aspirin 81 mg EC Tablet PO (06:26)
[2020-03-01] MEDS: amlodipine 10 mg Tablet PO (07:47)
[2020-03-01 11:14] LABS: Glucose Point of Care 256 mg/dL (70-110)
[2020-03-01] MEDS: cefTRIAXone 2,000 MG in sodium chloride 0.9% (plus) 50 ML 100 MG IV (14:16)
--- NOTE | 2020-03-01 15:32 | PM.PN ---
Subjective Subjective: Interval history: Stable overnight Awaiting placement arrangment Medications: Reviewed: Yes Vitals/I&O/Wt Last Vital Signs Temp 97.8 F 03/01/20 16:00 Pulse 60 03/01/20 16:00 Resp 16 03/01/20 16:00 BP 164/69 03/01/20 16:00 Pulse Ox 94 03/01/20 16:00 03/01/20 03/01/20 03/01/20 06:59 14:59 22:59 Intake Total 240 / 240 240 / 480 Output Total 100 / 600 375 / 375 Balance -100 / 290 240 / 240 -135 / 105 Physical Exam Const: COMMON NORMALS: no acute distress and patient oriented x3 Resp: COMMON NORMALS: normal respiratory effort and clear to auscultation bilaterally AUSCULTATION: clear to auscultation bilaterally Cardio: COMMON NORMALS: regular rate, regular rhythm and S2 normal heart sound present RATE: regular rate RHYTHM: regular rhythm HEART SOUNDS: S2 normal heart sound present OTHER: No lower extremity edema GI: COMMON NORMALS: Normal to inspection, nondistended, normoactive bowel sounds present, Soft to palpation and non-tender PALPATION: Yes Soft to palpation Extremity: NARRATIVE EXTREMITY EXAM: Post op BKA Neuro: COMMON NORMALS: patient oriented x3 and no focal motor deficits Data : 02/29/20 10:17 02/29/20 10:17 Micro: Microbiology 02/24/20 18:25 Blood Culture - Final Blood NO GROWTH AFTER 5 DAYS A&P Assessment and plan (1) Foot osteomyelitis, left: In diabetic patient. Status: Resolved Qualifiers: Osteomyelitis type: other acute Qualified Code(s): M86.172 - Other acute osteomyelitis, left ankle and foot (2) Sepsis: Status: Acute (3) Charcot-Cecy disease: Status: Acute (4) PAD (peripheral artery disease): Status: Acute (5) Non-pressure chronic ulcer of other part of left foot with necrosis of bone: Status: Acute (6) Charcot's arthropathy: Status: Acute Additional A&P Information Sepsis due to MSSA bacteremia with LLE osteomylitis s/p BKA POD 2 - Blood culture on 02/23 - MSSA 2/4 tubes - Repeat blood culture 02/27- > NGTD / Remains afebrile - PICC line placed 02/28 - D/C Vancomycin and zosyn - Change to daily Rocephin 2g q24hr - Plan to discharge on IV abx - Would prefer cefaxolin however due to frequency of dosing will use rocephin - Continue until 03/13/2019 - Post op management per ortho - Wound care management per ortho Chronic stage 3 kidney disease - Cr at baseline - 1.3 - > 1.1 Hypertension - Hydralazine 100 mg PO TID - Resume norvasc 10 mg PO daily Diabetes Mellitus with neuropathy - Resume carb consistent diet - Sliding scale insulin - Gabapentin PAD - On antiplatelet therapy DVT ppx - Heparin 5000 units q8hr Attestations Medical Necessity Statement*: Continue hospitalization for discharge placement arrangement Time Spent in Patient Care: Greater than 35 minutes (>than 50% of time spent in counselling and/or direct pt care on unit). Coding Level of Care Code Acute Laundry Routeman for Poli Fwd Exam Detailed Diagnoses Foot osteomyelitis, left M86.172 Osteomyelitis type: other acute Sepsis A41.9 Charcot-Cecy disease G60.0 PAD (peripheral artery disease) I73.9 Non-pressure chronic ulcer of other part of left foot with necrosis of bone L97.524 Charcot's arthropathy M14.60
[2020-03-01 18:32] LABS: Glucose Point of Care 263 mg/dL (70-110)
[2020-03-01] MEDS: tamsulosin 0.4 mg Capsule PO (18:50)
[2020-03-01 22:20] LABS: Glucose Point of Care 225 mg/dL (70-110)
[2020-03-01] MEDS: acetaminophen 325 mg Tablet PO (22:32)
[2020-03-02] VITALS (8 sets, daily range): BP systolic 140–200; BP diastolic 53–80; PULSE 58–66; RESP 17–24; TEMP 36.4–36.9; O2SAT 94–97
--- NOTE | 2020-03-02 02:09 | PC.NURSE ---
Patient stated that he generally feels unwell and that he is unable to describe any further. Will continue to monitor.
[2020-03-02] MEDS: morphine 4 mg/mL SDV 1 mL 2 MG IVP (02:41)
[2020-03-02] MEDS: heparin 5,000 unit/mL INJ 1 mL 5000 UNIT SUBCUT ×3 (05:50→20:58)
[2020-03-02] MEDS: aspirin 81 mg EC Tablet PO (06:03)
[2020-03-02] MEDS: pantoprazole DR 40 mg Tablet PO (06:05)
[2020-03-02] MEDS: hyDRALAzine 20 mg/mL INJ 1 mL 10 MG IVP (06:14)
[2020-03-02 06:56] LABS: Glucose Point of Care 129 mg/dL (70-110)
--- NOTE | 2020-03-02 07:04 | NUR.SHIFT ---
Patient had slept part of the night. Patients pain was controlled until 0240 when the patient needed morphine per may to control the pain. Afterwards the patient's pain became controlled. 0600 patients BP was 200/80 manual, was notified and hydrazine 10 mg IVP was admin. Patient's BP is now 140/54.
--- NOTE | 2020-03-02 09:35 | PC.CHAP ---
Pastoral Care Encounter/Spiritual Assessment Type of Contact [] Declined tube coater visit [] Patient/Family/Request visit [] Outpatient visit [] Follow-up visit [] Physician referral [] Code/Alert [] Routine visit [] Staff referral [] Actively dying [] Patient sleeping [] Family support [] [] Out of room [] Palliative care [] [] Receiving care in room [] Pre-surgical visit [] Trauma [] Long length of stay [] ICU visit [] Other: Relational/Emotional Strength [] Patient feels connected with others/family/visitors/staff [] Distress [] Loneliness/isolation [] Abandonment Spirituality of Patient [] Person of Deirdre [] Attends Advent of their Deirdre [] Believes in Prayer [] Reads Bible or Religion materials [] There are Spiritual issues to be addressed Manager Non Profit Interventions [] Prayer [] Active listening [] Non-anxious presence [] Spiritual/emotional support [] Crisis/trauma care [] Spiritual counseling [] Bereavement support [] Provided bereavement packet [] Provided Bible/devotional materials [] Provided toy/stuffed animal, coloring book to patient or family member [] Provided Communion [] Anointing/[place] [] Salvation [] Completed spiritual assessment [] Other: Impact on Illness or Injury [] Angry [] Fearful [] Anxious [] Often cries [] Exhaustion [] Unable to work [] Unable to attend jehovah's witness [] Unable to walk/stand [] Unable to read [] Unable to drive [] Unable to eat/drink [] Unable to sleep [] Unable to be with family [] Patient intubated [] Other: Summary Time spent with patient
[2020-03-02] MEDS: acetaminophen 325 mg Tablet PO ×2 (10:46→22:32)
[2020-03-02] MEDS: amlodipine 10 mg Tablet PO (10:47)
--- NOTE | 2020-03-02 10:53 | DCPLANNER ---
IMM completed 03/02/2020 @ 0942. Copy of rights given to pt.
[2020-03-02 12:01] LABS: Glucose Point of Care 298 mg/dL (70-110)
[2020-03-02] MEDS: cefTRIAXone 2,000 MG in sodium chloride 0.9% (plus) 50 ML 100 MG IV (12:56)
[2020-03-02 17:15] LABS: Glucose Point of Care 199 mg/dL (70-110)
--- NOTE | 2020-03-02 17:40 | PM.PN ---
Subjective Subjective: Interval history: No new clinical events. Medications: Reviewed: Yes Vitals/I&O/Wt Last Vital Signs Temp 97.6 F 03/02/20 15:17 Pulse 66 03/02/20 15:17 Resp 18 03/02/20 15:17 BP 165/76 03/02/20 15:17 Pulse Ox 96 03/02/20 15:17 03/02/20 03/02/20 03/02/20 06:59 14:59 22:59 Intake Total 50 / 580 Output Total 1050 / 1725 160 / 160 Balance -1000 / -1145 -160 / -160 Physical Exam Const: COMMON NORMALS: no acute distress and patient oriented x3 Resp: COMMON NORMALS: normal respiratory effort and clear to auscultation bilaterally AUSCULTATION: clear to auscultation bilaterally Cardio: COMMON NORMALS: regular rate, regular rhythm and S2 normal heart sound present RATE: regular rate RHYTHM: regular rhythm HEART SOUNDS: S2 normal heart sound present OTHER: No lower extremity edema GI: COMMON NORMALS: Normal to inspection, nondistended, normoactive bowel sounds present, Soft to palpation and non-tender PALPATION: Yes Soft to palpation Extremity: NARRATIVE EXTREMITY EXAM: Post op BKA Neuro: COMMON NORMALS: patient oriented x3 and no focal motor deficits Data : 02/29/20 10:17 02/29/20 10:17 Micro: Microbiology 02/24/20 18:25 Blood Culture - Final Blood NO GROWTH AFTER 5 DAYS A&P Assessment and plan (1) Foot osteomyelitis, left: In diabetic patient. Status: Resolved Qualifiers: Osteomyelitis type: other acute Qualified Code(s): M86.172 - Other acute osteomyelitis, left ankle and foot (2) Sepsis: Status: Acute (3) Charcot-Cecy disease: Status: Acute (4) PAD (peripheral artery disease): Status: Acute (5) Non-pressure chronic ulcer of other part of left foot with necrosis of bone: Status: Acute (6) Charcot's arthropathy: Status: Acute Additional A&P Information Sepsis due to MSSA bacteremia with LLE osteomylitis s/p BKA POD 2 - Blood culture on 02/23 - MSSA 2/ tubes - Repeat blood culture 02/27- > NGTD / Remains afebrile - PICC line placed 12/23 - D/C Vancomycin and zosyn - Change to daily Rocephin 2g q24hr - Plan to discharge on IV abx - Ceftriaxone to complete on 03/13/2020 - Would prefer cefaxolin however due to frequency of dosing will use rocephin - Continue until 03/13/2019 - Post op management per ortho - Wound care management per ortho Chronic stage 3 kidney disease - Cr at baseline - 1.3 - > 1.1 - BMP in am Hypertension - Hydralazine 100 mg PO TID - Norvasc 10 mg PO daily Diabetes Mellitus with neuropathy - Resume carb consistent diet - Sliding scale insulin - Gabapentin PAD - On antiplatelet therapy DVT ppx - Heparin 5000 units q8hr Attestations Medical Necessity Statement*: will cotinue hospitalization for IV abx and discharge placement arrangement Time Spent in Patient Care: Greater than 35 minutes (>than 50% of time spent in counselling and/or direct pt care on unit). Coding Level of Care Code Acute Blown Film Extrusion Operator for Poli Harris Diagnoses Foot osteomyelitis, left M86.172 Osteomyelitis type: other acute Sepsis A41.9 Charcot-Cecy disease G60.0 PAD (peripheral artery disease) I73.9 Non-pressure chronic ulcer of other part of left foot with necrosis of bone L97.524 Charcot's arthropathy M14.60
[2020-03-02] MEDS: tamsulosin 0.4 mg Capsule PO (18:59)
[2020-03-02 20:58] LABS: Glucose Point of Care 245 mg/dL (70-110)
[2020-03-03] VITALS: BP 143/69; PULSE 60; RESP 16; TEMP 36.5; O2SAT 98
[2020-03-03] MEDS: zolpidem 5 mg Tablet PO ×2 (00:26→21:47)
[2020-03-03 04:00] VITALS: BP 117/80; PULSE 77; RESP 17; TEMP 36.6; O2SAT 95
[2020-03-03 05:38] LABS: Basophils # 0.1 10^3/uL (0.0-0.1); Basophils % 0.6 %; Eosinophils # 0.3 10^3/uL (0.0-0.8); Eosinophils % 2.9 %; Hematocrit 28.4 % (42.0-52.0); Hemoglobin 8.8 g/dL (11.7-16.6); Lymphocytes # 1.8 10^3/uL (0.8-4.8); Lymphocytes % 18.2 %; Mean Corpuscular Hemoglobin 26.4 pg (28.0-34.0); Mean Corpuscular Volume 85.3 fL (80-94); Mean Platelet Volume 11.1 fL (7.4-10.4); Neutrophils # 6.35 10^3/uL (1.8-7.7); Nucleated Red Blood Cells % 0.4 %; Platelet Count 485 10^3/cmm (130-400); Red Blood Count 3.33 10^6/uL (4.1-5.3); White Blood Count 10.1 10^3/uL (4.0-10.0)
[2020-03-03 06:00] LABS: Alanine Aminotransferase 27 U/L (0-41); Albumin Level 2.7 g/dL (3.5-5.2); Alkaline Phosphatase 93 IU/L (40-130); Anion Gap 12.8 (5-19); Aspartate Amino Transferase 21 U/L (0-40); Blood Urea Nitrogen 15 mg/dL (8-23); C Reactive Protein 48.6 mg/L (0.0-4.9); Calcium 8.6 mg/dL (8.5-10.5); Carbon Dioxide 22 mmol/L (22-29); Chloride 105 mmol/L (98-107); Globulin 4.2 g/dL (1.3-4.6); Glucose 134 mg/dL (65-115); Osmolality Calculated 285 mOsm/kg (285-295); Potassium 3.8 mmol/L (3.5-5.1); Sodium 136 mmol/L (136-145); Total Bilirubin 0.3 mg/dL (0.15-1.2); Total Protein 6.9 g/dL (6.6-8.7)
[2020-03-03] MEDS: heparin 5,000 unit/mL INJ 1 mL 5000 UNIT SUBCUT ×3 (06:07→21:47)
[2020-03-03] MEDS: pantoprazole DR 40 mg Tablet PO (06:08)
[2020-03-03] MEDS: aspirin 81 mg EC Tablet PO (06:08)
--- NOTE | 2020-03-03 06:30 | PC.NURSE ---
Shift Summary Patient had uneventful night. Was restless at the beginning of shift, rested well after ambien administration. Patient given Tylenol once for pain. Good urine output. No complaints.
[2020-03-03 06:56] LABS: Glucose Point of Care 139 mg/dL (70-110)
[2020-03-03 07:11] LABS: Neutrophils % 68.3 %
[2020-03-03 07:37] VITALS: BP 180/70; PULSE 69; RESP 16; TEMP 36.4; O2SAT 92
[2020-03-03] MEDS: acetaminophen 325 mg Tablet PO ×2 (07:53→21:49)
[2020-03-03] MEDS: amlodipine 10 mg Tablet PO (07:54)
[2020-03-03 08:09] LABS: Erythrocyte Sedimentation Rate 120 mm/hr (0-10)
[2020-03-03 10:44] LABS: Glucose Point of Care 245 mg/dL (70-110)
[2020-03-03 10:57] VITALS: BP 112/62; PULSE 62; RESP 17; TEMP 36.7; O2SAT 94
--- NOTE | 2020-03-03 12:54 | PM.PN ---
Subjective Subjective: Interval history: No new clinical events. sleeping comfortably at the time of my eval Medications: Reviewed: Yes Vitals/I&O/Wt Last Vital Signs Temp 98.1 F 03/03/20 10:57 Pulse 62 03/03/20 10:57 Resp 17 03/03/20 10:57 BP 112/62 03/03/20 10:57 Pulse Ox 94 03/03/20 10:57 03/02/20 03/03/20 03/03/20 22:59 06:59 14:59 Intake Total 360 / 360 480 / 480 Output Total 310 / 560 1050 / 1610 700 / 700 Balance 50 / -200 -1050 / -1250 -220 / -220 Physical Exam Const: COMMON NORMALS: no acute distress and patient oriented x3 Resp: COMMON NORMALS: normal respiratory effort and clear to auscultation bilaterally AUSCULTATION: clear to auscultation bilaterally Cardio: COMMON NORMALS: regular rate, regular rhythm and S2 normal heart sound present RATE: regular rate RHYTHM: regular rhythm HEART SOUNDS: S2 normal heart sound present OTHER: No lower extremity edema GI: COMMON NORMALS: Normal to inspection, nondistended, normoactive bowel sounds present, Soft to palpation and non-tender PALPATION: Yes Soft to palpation Extremity: NARRATIVE EXTREMITY EXAM: Post op BKA Neuro: COMMON NORMALS: patient oriented x3 and no focal motor deficits Data : 03/03/20 05:00 03/03/20 05:00 Micro: Microbiology 02/24/20 09:49 Blood Culture - Final Blood Staphylococcus aureus Corynebacterium species A&P Assessment and plan (1) MSSA bacteremia: Status: Acute (2) Foot osteomyelitis, left: In diabetic patient. Status: Resolved Qualifiers: Osteomyelitis type: other acute Qualified Code(s): M86.172 - Other acute osteomyelitis, left ankle and foot (3) Status post below-knee amputation of left lower extremity: Status: Acute (4) Charcot-Cecy disease: Status: Acute (5) PAD (peripheral artery disease): Status: Acute (6) Non-pressure chronic ulcer of other part of left foot with necrosis of bone: Status: Acute (7) GERD (gastroesophageal reflux disease): Status: Acute (8) Diabetes: Status: Acute Qualifiers: Diabetes mellitus type: type 2 Diabetes mellitus jail insulin use: without long chain quiller tender use Diabetes mellitus complication status: with skin complications Diabetes mellitus complication detail: with foot ulcer Qualified Code(s): E11.621 - Type 2 diabetes mellitus with foot ulcer; L97.509 - Non-pressure chronic ulcer of other part of unspecified foot with unspecified severity (9) Hypertension: Status: Acute Qualifiers: Hypertension type: essential hypertension Qualified Code(s): I10 - Essential (primary) hypertension (10) Sepsis: Status: Acute (11) Charcot's arthropathy: Status: Acute Additional A&P Information Sepsis due to MSSA bacteremia with LLE osteomylitis s/p BKA - Blood culture on 02/23 - MSSA 2/4 tubes - Repeat blood culture 02/27- > NGTD / Remains afebrile - PICC line placed 02/28 - D/C Vancomycin and zosyn - Change to daily Rocephin 2g q24hr - Plan to discharge on IV abx - Ceftriaxone to complete on 03/13/2020 - Would prefer cefaxolin however due to frequency of dosing will use rocephin - Continue until 03/13/2019 - Post op management per ortho - Wound care management per ortho - Will arrange today Chronic stage 3 kidney disease - Cr at baseline - 1.3 - > 1.1 - BMP in am Hypertension - Hydralazine 100 mg PO TID - Norvasc 10 mg PO daily Diabetes Mellitus with neuropathy - Resume carb consistent diet - Sliding scale insulin - Gabapentin PAD - On antiplatelet therapy DVT ppx - Heparin 5000 units q8hr Attestations Medical Necessity Statement*: Continue hospital stay until arrangement of home iv abx vs SNF Time Spent in Patient Care: Greater than 35 minutes Coding Level of Care Code Acute High Raw Sugar Boiler for [facility] Fwd Diagnoses MSSA bacteremia R78.81; B95.61 Foot osteomyelitis, left M86.172 Osteomyelitis type: other acute Status post below-knee amputation of left lower extremity Z89.512 Charcot-Cecy disease G60.0 PAD (peripheral artery disease) I73.9 Non-pressure chronic ulcer of other part of left foot with necrosis of bone L97.524 GERD (gastroesophageal reflux disease) K21.9 Diabetes E11.621; L97.509 Diabetes mellitus type: type 2 Diabetes mellitus long chain quiller tender insulin use: without long chain quiller tender use Diabetes mellitus complication status: with skin complications Diabetes mellitus complication detail: with foot ulcer Hypertension I10 Hypertension type: essential hypertension Sepsis A41.9 Charcot's arthropathy M14.60
[2020-03-03 14:32] VITALS: BP 157/76; PULSE 66; RESP 17; TEMP 36.6; O2SAT 95
[2020-03-03] MEDS: cefTRIAXone 2,000 MG in sodium chloride 0.9% (plus) 50 ML 100 MG IV (15:34)
[2020-03-03 16:58] LABS: Glucose Point of Care 220 mg/dL (70-110)
[2020-03-03] MEDS: tamsulosin 0.4 mg Capsule PO (18:40)
[2020-03-03 19:24] VITALS: BP 165/67; PULSE 72; RESP 18; TEMP 37.1; O2SAT 95
[2020-03-03 21:38] LABS: Glucose Point of Care 216 mg/dL (70-110)
[2020-03-04] VITALS: BP 140/50; PULSE 55; RESP 22; TEMP 36.8; O2SAT 92
[2020-03-04] MEDS: gabapentin 100 mg Capsule PO (01:20)
[2020-03-04] MEDS: acetaminophen 325 mg Tablet PO ×2 (03:34→08:24)
[2020-03-04 04:00] VITALS: BP 157/68; PULSE 53; RESP 20; TEMP 36.3; O2SAT 92
--- NOTE | 2020-03-04 05:49 | PC.NURSE ---
Shift Summary Patient c/o not feeling well throughout the night. He couldn't describe any symptoms other than pain and a generalized feeling of not being well. Denied chest pain and nausea. Tylenol and gabapentin administered for pain complaints, educated patient that if these were not managing pain well that we could request orders for something else.
[2020-03-04] MEDS: heparin 5,000 unit/mL INJ 1 mL 5000 UNIT SUBCUT ×2 (06:00→14:40)
[2020-03-04] MEDS: aspirin 81 mg EC Tablet PO (06:00)
[2020-03-04] MEDS: pantoprazole DR 40 mg Tablet PO (06:00)
[2020-03-04 06:23] LABS: Glucose Point of Care 133 mg/dL (70-110)
[2020-03-04 08:00] VITALS: BP 190/83; PULSE 69; RESP 17; TEMP 36.9; O2SAT 95
[2020-03-04] MEDS: amlodipine 10 mg Tablet PO (08:24)
--- NOTE | 2020-03-04 11:30 | PC.SOCIAL ---
IMM Updated Page 2 of IMM updated with patient and spouse and given to them. Initialed, dated, and timed and placed back in chart.
[2020-03-04 12:00] VITALS: BP 159/96; PULSE 68; RESP 16; TEMP 36.9; O2SAT 98
[2020-03-04 12:40] LABS: Glucose Point of Care 218 mg/dL (70-110)
--- NOTE | 2020-03-04 12:40 | P.DS_ITS ---
Discharge Providers Date of Admission: 02/24/20 20:12 Date of Discharge: March 03, 2020 Attending Provider at Admission: Lm Gayle MD Attending Provider at Discharge: Rich Escobedo Primary Care Provider: Angie Zarate MD Diagnoses at Discharge Discharge Diagnosis (1) MSSA bacteremia: Status: Acute (2) Foot osteomyelitis, left: Status: Resolved Qualifiers: Osteomyelitis type: other acute Qualified Code(s): M86.172 - Other acute osteomyelitis, left ankle and foot (3) Status post below-knee amputation of left lower extremity: Status: Acute (4) Charcot-Cecy disease: Status: Resolved (5) PAD (peripheral artery disease): Status: Acute (6) Non-pressure chronic ulcer of other part of left foot with necrosis of bone: Status: Acute (7) GERD (gastroesophageal reflux disease): Status: Acute (8) Diabetes: Status: Acute Qualifiers: Diabetes mellitus type: type 2 Diabetes mellitus intermediate teacher insulin use: without prison use Diabetes mellitus complication status: with skin complications Diabetes mellitus complication detail: with foot ulcer Qualified Code(s): E11.621 - Type 2 diabetes mellitus with foot ulcer; L97.509 - Non- pressure chronic ulcer of other part of unspecified foot with unspecified severity (9) Hypertension: Status: Acute Qualifiers: Hypertension type: essential hypertension Qualified Code(s): I10 - Essential (primary) hypertension (10) Sepsis: Status: Acute (11) Charcot's arthropathy: Status: Acute Reason for Visit Reason for Visit: Lt leg pain Hospital Course Hospital Course 79 year old male Who Has History of Diabetic Foot, arthropathy, has been evaluated by orthopedic for left BKA, Dr. Norman, Dr. Baeza, Dr. Medeiros are all aware of his worsening diabetic foot ulcer, his latest debridement was 10 days ago, previously has been treated with Zyvox and daptomycin via PICC line (previous wound culture grew Pseudomonas, Klebsiella E. coli and MRSA) patient was not able to make final decision regarding BKA presented today with chief complaint of rigors. Patient is stating that for last 3 to 4 days he has been experiencing extreme rigors/chills, his temperature at home was 98.9 or 99, he did not experience any nausea, vomiting, chest pain, dysuria change in bowel movements. Because of worsening chills he decided to come to the hospital for further evaluation. He does use wheelchair sometimes cane for ambulation, he has [employer] boots as well. Diagnosis in the ER revealed sepsis secondary to left foot osteomyelitis fever, leukocytosis, he has been given vancomycin, I have asked him about penicillin allergy which she is taking as nausea and vomiting we discussed about the side effect of the medication. He never had any anaphylaxis or skin rash. Upon admission to the hospital patient was started on vancomycin and Zosyn. Orthopedic surgery was consulted. Patient was taken to the OR for a left below- knee amputation. This was performed on 02/27/2020. Blood cultures drawn has shown growth of MSSA. bacteremia on 02/23. Repeat cultures drawn on 02/27 did not show any growth. Patient will longer had any further episodes of fever or chills. Continue to improve. PICC line was placed and patient was started on Rocephin 2 g daily to continue for a total of 6 weeks post discharge. Outpatient follow-up with ID was arranged. Physical Exam Const: COMMON NORMALS: no acute distress and patient oriented x3 Resp: COMMON NORMALS: normal respiratory effort and clear to auscultation bilaterally AUSCULTATION: clear to auscultation bilaterally Cardio: COMMON NORMALS: regular rate, regular rhythm and S2 normal heart sound present RATE: regular rate RHYTHM: regular rhythm HEART SOUNDS: S2 normal heart sound present OTHER: No lower extremity edema GI: COMMON NORMALS: Normal to inspection, nondistended, normoactive bowel sounds present, Soft to palpation and non-tender PALPATION: Yes Soft to palpation Extremity: NARRATIVE EXTREMITY EXAM: Post op BKA Neuro: COMMON NORMALS: patient oriented x3 and no focal motor deficits Discharge Data Data Completed and Pending: Completed Studies During Hospitalization Category Date Time Status CT lower leg LT w con [id number] Urgent Cat Scan 02/24/20 17:46 Completed CXRP [XR chest 1V portable [id number]] R outine Exams 02/29/20 11:11 Completed XR chest 1V frank ble [id number] Urgent Exams 02/24/20 17:46 Completed XR hip LT 2-3V wo /w pel* [id number] Stat Exams 02/26/20 19:44 Completed Pathology: Surgic al [PTH] Routine Pth 02/27/20 08:40 Completed Vitals: Last Vital Signs Temp 98.5 F 03/04/20 17:32 Pulse 68 03/04/20 17:32 Resp 16 03/04/20 17:32 BP 159/96 03/04/20 17:32 Pulse Ox 98 03/04/20 17:32 Discharge Plan Discharge Patient Disposition: Home Health Service Condition: Stable Prescriptions: New oxycodone 5 mg Tablet 5 mg PO Q4H PRN (Reason: Severe Pain) Qty: 10 RF: 0 ceftriaxone 2 gram recon soln 2 g IV Q24H 10 Days Qty: 10 RF: 0 Continued cholecalciferol (vitamin D3) 1,000 unit capsule 1,000 unit PO DAILY@07 RF: 0 aspirin [Adult Low Dose Aspirin] 81 mg tablet,delayed release (DR/EC) 81 mg PO DAILY@07 RF: 0 gabapentin 100 mg capsule 300 mg PO TID MDD 9 caps PRN (Reason: pain) Qty: 30 RF: 0 spironolacton-hydrochlorothiaz 25-25 mg tablet 1 tab PO DAILY@07 RF: 0 glipizide 10 mg tablet 10 mg PO BID@, RF: 0 clopidogrel 75 mg tablet 75 mg PO DAILY@ RF: 0 tamsulosin 0.4 mg capsule 0.4 mg PO DAILY@19 RF: 0 hydralazine 100 mg tablet 100 mg PO TID@,, RF: 0 pantoprazole 40 mg tablet,delayed release (DR/EC) 40 mg PO DAILY@07 RF: 0 amlodipine-benazepril 10-40 mg capsule 1 cap PO DAILY@07 RF: 0 Discharge Orders: Discharge Order (Routine); Ordered 03/03/20 Ordered By: Rich Escobedo Referrals: [facility] [Other] (This is the infusion pharmacy that will be providing your IV medication. If you have any questions regarding payment or delivery of this medication, please call them at the phone number provided.) [facility] [Outside] Charissa Frederick MD [Hospitalist] - 03/15/20 (You have been referred to infectious disease and you will need to follow up with Dr. Frederick in her office on 03/15/20. They will call you with an appointment time.) Armando Medeiros MD [Physician] - 03/13/20 2:30 pm (You have an appointment on March 13, 2020 at 2:30 pm. ) Angie Zarate MD [Primary Care Provider] - 4-7 days (Please contact Dr. Zarate office tomorrow 03/05/20 to schedule an appointment to be seen within 4-7 days. ) Discharge Diet: Diabetic Discharge Activity: Use walker/crutches as instructed Patient Instructions: Oxycodone/Acetaminophen (By mouth), Ceftriaxone (Injection), Below the Knee Amputation (DC) Activity Restrictions/Additional Instructions: Leave dressing in place Return to hospital if having fevers. Discharge Attestations Time Spent in Discharge Care*: greater than 30 min Specific Discharge Activities: educating and/or supporting family/caregiver, discussing with pcp/other providers, documenting/other paperwork and evaluating patient/reviewing data Status at Discharge: Cognitive status at discharge: cognitively intact , Behavioral status at discharge: cooperative , Functional status at discharge: other assisted ambulation Overall status at discharge: patient is back to baseline Quality Metrics Clinical Quality Measures During this hospital stay, did patient experience: None Coding Level of Care Code Acute Help Desk Engineer for g Fwd Diagnoses MSSA bacteremia R78.81; B95.61 Foot osteomyelitis, left M86.172 Osteomyelitis type: other acute Status post below-knee amputation of left lower extremity Z89.512 Charcot-Cecy disease G60.0 PAD (peripheral artery disease) I73.9 Non-pressure chronic ulcer of other part of left foot with necrosis of bone L97.524 GERD (gastroesophageal reflux disease) K21.9 Diabetes E11.621; L97.509 Diabetes mellitus type: type 2 Diabetes mellitus intermediate teacher insulin use: without intermediate teacher use Diabetes mellitus complication status: with skin complications Diabetes mellitus complication detail: with foot ulcer Hypertension I10 Hypertension type: essential hypertension Sepsis A41.9 Charcot's arthropathy M14.60
[2020-03-04] MEDS: cefTRIAXone 2,000 MG in sodium chloride 0.9% (plus) 50 ML 100 MG IV (14:41)
[2020-03-04 17:32] VITALS: BP 159/96; PULSE 68; RESP 16; TEMP 36.9; O2SAT 98
== END 2020-03-04 16:15 | disposition home health service (06) | DRG 854 ==
LOC: ER 17:25 → MEDSURG 20:32
PROVIDERS: Internal Medicine; Orthopaedic Surgery; Admitting Provider Internal Medicine; Emergency Provider Family Medicine; PCP Family Medicine; Visit Provider Hospitalist
PROC: 0Y6J0Z2 Detachment at Left Lower Leg, Mid, Open Approach (ICD-10-PCS; CPT 27880; principal; 2020-02-27 08:00)
DX: A41.9 Sepsis, unspecified organism (principal); M86.172 Other acute osteomyelitis, left ankle and foot; E11.69 Type 2 diabetes mellitus with other specified complication; E11.610 Type 2 diabetes mellitus with diabetic neuropathic arthropathy; E11.51 Type 2 diabetes mellitus with diabetic peripheral angiopathy without gangrene; E11.42 Type 2 diabetes mellitus with diabetic polyneuropathy; E11.22 Type 2 diabetes mellitus with diabetic chronic kidney disease; I12.9 Hypertensive chronic kidney disease with stage 1 through stage 4 chronic kidney disease, or unspecified chronic kidney disease; N18.30 Chronic kidney disease, stage 3 unspecified; N40.0 Benign prostatic hyperplasia without lower urinary tract symptoms; I25.10 Atherosclerotic heart disease of native coronary artery without angina pectoris; Z95.5 Presence of coronary angioplasty implant and graft; K21.9 Gastro-esophageal reflux disease without esophagitis; Z89.411 Acquired absence of right great toe; E66.9 Obesity, unspecified; Z68.30 Body mass index [BMI] 30.0-30.9, adult; Z87.891 Personal history of nicotine dependence; B95.61 Methicillin susceptible Staphylococcus aureus infection as the cause of diseases classified elsewhere; E83.42 Hypomagnesemia; Z79.82 Long term (current) use of aspirin; Z79.84 Long term (current) use of oral hypoglycemic drugs; Z79.02 Long term (current) use of antithrombotics/antiplatelets; L97.524 Non-pressure chronic ulcer of other part of left foot with necrosis of bone
CPT/HCPCS: 12345; 36415; 36416; 36569; 71045; 73502; 73701; 80048; 80053; 80202; 81001; 82962; 83605; 83735; 84145; 85007; 85025; 85651; 86140; 87040; 87077; 87186; 87205; 87426; 87804; 88307; 96372; 96375; 97110; 97161; 97166; 97530; 99282; A7015; J0360; J0690; J0696; J1170; J1644; J1815; J2270; J2370; J2543; J2704; J3010; J3370; J3475; J3490; J7030; Q9967

== ENCOUNTER 2020-03-20 16:29 | Outpatient (CLI) | payer MEDICARE, SELFPAY ==
[2020-03-20 16:48] LABS: Basophils % 0.9 %; Eosinophils # 0.1 10^3/uL (0.0-0.8); Eosinophils % 3.3 %; Hematocrit 34.8 % (42.0-52.0); Hemoglobin 10.8 g/dL (11.7-16.6); Lymphocytes # 1.4 10^3/uL (0.8-4.8); Lymphocytes % 31.4 %; Mean Corpuscular Hemoglobin 28.1 pg (28.0-34.0); Mean Corpuscular Volume 90.4 fL (80-94); Mean Platelet Volume 13.1 fL (7.4-10.4); Monocytes # 0.5 10^3/uL (0.2-0.9); Monocytes % 11.4 %; Neutrophils # 2.27 10^3/uL (1.8-7.7); Neutrophils % 52.8 %; Nucleated Red Blood Cells % 0 %; Platelet Count 299 10^3/cmm (130-400); Red Blood Count 3.85 10^6/uL (4.1-5.3); Red Cell Distribution Width 17.7 % (12.1-15.1); White Blood Count 4.3 10^3/uL (4.0-10.0)
[2020-03-20 18:34] LABS: Alanine Aminotransferase 19 U/L (0-41); Albumin Level 2.9 g/dL (3.5-5.2); Alkaline Phosphatase 62 IU/L (40-130); Aspartate Amino Transferase 19 U/L (0-40); Blood Urea Nitrogen 26 mg/dL (8-23); Calcium 8.8 mg/dL (8.5-10.5); Carbon Dioxide 22 mmol/L (22-29); Chloride 103 mmol/L (98-107); Globulin 3.9 g/dL (1.3-4.6); Glucose 249 mg/dL (65-115); Osmolality Calculated 295 mOsm/kg (285-295); Sodium 136 mmol/L (136-145); Total Bilirubin 0.3 mg/dL (0.15-1.2); Total Protein 6.8 g/dL (6.6-8.7)
[2020-03-20 18:37] LABS: Anion Gap 14.9 (5-19); Potassium 3.9 mmol/L (3.5-5.1)
[2020-03-20 19:29] LABS: Slide Review Slide Review Perform
== END 2020-03-20 16:30 | disposition home or self-care (01) ==
LOC: LAB 16:36
PROVIDERS: PCP Family Medicine; Visit Provider Student in an Organized Health Care Education/Training Program
DX: Z89.522 Acquired absence of left knee (principal); L03.116 Cellulitis of left lower limb
CPT/HCPCS: 80053; 85025

== ENCOUNTER → 2020-04-10 11:12 | Outpatient (BNVA) | payer MEDICARE, SELFPAY | PROVIDERS: PCP Family Medicine; Visit Provider Student in an Organized Health Care Education/Training Program | DX: M86.172 Other acute osteomyelitis, left ankle and foot (principal); B95.61 Methicillin susceptible Staphylococcus aureus infection as the cause of diseases classified elsewhere; R78.81 Bacteremia; Z89.512 Acquired absence of left leg below knee; E11.621 Type 2 diabetes mellitus with foot ulcer; L97.509 Non-pressure chronic ulcer of other part of unspecified foot with unspecified severity; M14.672 Charcot's joint, left ankle and foot; Z45.2 Encounter for adjustment and management of vascular access device | CPT/HCPCS: 85651 ==

== ENCOUNTER 2020-06-04 06:00 | Outpatient (RCR) | payer MEDICARE, SELFPAY | END 2020-06-06 23:59 | disposition home or self-care (01) | LOC: MPT 06:00 | PROVIDERS: PCP Family Medicine; Referring Provider Family Medicine; Visit Provider Family Medicine | DX: Z89.512 Acquired absence of left leg below knee (principal) | CPT/HCPCS: 97110; 97116; 97162 ==

== ENCOUNTER 2020-06-07 06:00 | Outpatient (RCR) | payer MEDICARE, SELFPAY | END 2020-07-06 23:59 | disposition home or self-care (01) | LOC: MPT 06:00 | PROVIDERS: PCP Family Medicine; Referring Provider Family Medicine; Visit Provider Family Medicine | DX: Z89.512 Acquired absence of left leg below knee (principal) | CPT/HCPCS: 97110; 97116 ==

== ENCOUNTER 2020-07-07 06:00 | Outpatient (RCR) | payer MEDICARE, SELFPAY | END 2020-08-06 23:59 | disposition home or self-care (01) | LOC: MPT 06:00 | PROVIDERS: PCP Family Medicine; Referring Provider Family Medicine; Visit Provider Family Medicine | DX: Z89.512 Acquired absence of left leg below knee (principal) | CPT/HCPCS: 97110; 97112; 97116 ==

== ENCOUNTER → 2020-07-19 09:22 | Outpatient (BNVA) | payer MEDICARE, SELFPAY | PROVIDERS: PCP Family Medicine; Visit Provider Family Medicine | DX: E11.621 Type 2 diabetes mellitus with foot ulcer (principal); L97.509 Non-pressure chronic ulcer of other part of unspecified foot with unspecified severity; I10 Essential (primary) hypertension; M14.60 Charcot's joint, unspecified site; Z89.512 Acquired absence of left leg below knee; K21.9 Gastro-esophageal reflux disease without esophagitis; I25.10 Atherosclerotic heart disease of native coronary artery without angina pectoris; I73.9 Peripheral vascular disease, unspecified; I16.0 Hypertensive urgency | CPT/HCPCS: 80053; 80061; 83036; 85025 ==

== ENCOUNTER → 2021-02-04 10:40 | Outpatient (BNVA) | payer MEDICARE, SELFPAY | PROVIDERS: PCP Family Medicine; Visit Provider Family Medicine | DX: I10 Essential (primary) hypertension (principal); E11.9 Type 2 diabetes mellitus without complications; I25.10 Atherosclerotic heart disease of native coronary artery without angina pectoris; I73.9 Peripheral vascular disease, unspecified; E11.621 Type 2 diabetes mellitus with foot ulcer; L97.509 Non-pressure chronic ulcer of other part of unspecified foot with unspecified severity | CPT/HCPCS: 80053; 83036 ==

== ENCOUNTER → 2021-08-06 10:48 | Outpatient (BNVA) | payer MEDICARE, SELFPAY | PROVIDERS: PCP Family Medicine; Visit Provider Family Medicine | DX: I25.10 Atherosclerotic heart disease of native coronary artery without angina pectoris (principal); I10 Essential (primary) hypertension; E11.621 Type 2 diabetes mellitus with foot ulcer; L97.509 Non-pressure chronic ulcer of other part of unspecified foot with unspecified severity; K21.9 Gastro-esophageal reflux disease without esophagitis; E11.51 Type 2 diabetes mellitus with diabetic peripheral angiopathy without gangrene | CPT/HCPCS: 80053; 80061; 83036 ==

== ENCOUNTER 2021-10-03 02:41 | Emergency (ER) | payer MEDICARE, SELFPAY ==
[2021-10-03 02:43] VITALS: BP 166/98; PULSE 56; RESP 16; TEMP 36.6; O2SAT 96; BMI 31.6
--- NOTE | 2021-10-03 02:45 | CTR_ITS ---
PROCEDURE INFORMATION: Exam: CT Abdomen And Pelvis Without Contrast Exam date and time: 10/03/2021 3:20 AM Age: 81 years old Clinical indication: Bloating; Abdominal pain; Prior surgery; Surgery type: Cardiac stent; Patient HX: C/O adb distention with periumbilical discomfort. History of bph. ; Additional info: Abd swelling TECHNIQUE: Imaging protocol: Computed tomography of the abdomen and pelvis without contrast. Radiation optimization: All CT scans at this facility use at least one of these dose optimization techniques: automated exposure control; mA and/or kV adjustment per patient size (includes targeted exams where dose is matched to clinical indication); or iterative reconstruction. COMPARISON: CR XR hip LT 2-3V wo/w pel* [id number] 02/26/2020 7:52 PM RADIATION DOSE METRICS: Total DLP (mGy-cm): 1128.23 FINDINGS: Lungs: Streaky right basilar atelectasis. Liver: No mass. Gallbladder and bile ducts: No calcified stones. No ductal dilation. Pancreas: No ductal dilation. Spleen: No splenomegaly. Adrenal glands: Normal. No mass. Kidneys and ureters: No hydronephrosis. Stomach and bowel: Colonic diverticulosis without findings of diverticulitis. Mild wall thickening of the stomach which may be seen with gastritis. Findings may be exaggerated by limited gastric distention. No bowel obstruction. Appendix: No evidence of appendicitis. Intraperitoneal space: No free air. No significant fluid collection. Vasculature: Atherosclerotic changes of the aorta and its associated branches. Lymph nodes: Nonspecific slightly prominent perigastric lymph nodes. Urinary bladder: Unremarkable as visualized. Reproductive: Enlarged prostate gland. Bones/joints: Multilevel degenerative changes. Soft tissues: Unremarkable. CT/CT abdomen pelvis wo con [id number] IMPRESSION: 1. Nonspecific slightly prominent perigastric lymph nodes. Mild wall thickening of the stomach which may be seen with gastritis. Findings may be exaggerated by limited gastric distention. 2. Enlarged prostate gland.
--- NOTE | 2021-10-03 02:46 | W.ED.ABDPA2 ---
HPI - Abdominal Pain General: Chief Complaint: General Medical Stated Complaint: ABD SWELLING Time Seen by Provider: 10/03/21 02:42 Source: patient and EMS Mode of arrival: EMS Limitations: no limitations History of Present Illness: 81-year-old male who states that he has had increased abdominal swelling over the last 4 to 5 days. He states he feels a pressure in his abdomen as well he denies any vomiting or diarrhea denies any pain currently denies any chest pain denies any constipation. He denies any worsening proving factors. Associated Symptoms: Denies chills, diarrhea, dysuria, fever(s), nausea and vomiting Review of Systems Const: Denies: fever(s), chills, body aches or change in appetite Eyes: Denies: blurry vision or eye discomfort ENMT: Denies: throat pain or dental pain Card: Denies: chest pain Resp: Denies: dyspnea GI: Denies: abdominal pain, nausea, vomiting or diarrhea : Denies: dysuria Musc: Denies: neck pain or back pain Skin/Breast: Denies: rash Neuro: Denies: headache(s) Psych: Denies: depression Dick/Lymph: Denies: easy bruising All/Imm: Denies: urticaria PFSH ED PFSH: Medical History BPH (benign prostatic hyperplasia) CAD (coronary artery disease) Charcot's arthropathy Diabetes GERD (gastroesophageal reflux disease) History of amputation of right great toe Hypertension Macular edema Obesity PAD (peripheral artery disease) Peripheral neuropathy Renal insufficiency Surgical History H/O eye surgery History of cardiac cath History of coronary artery stent placement Family History Denies family history of Diabetes Dementia Anesthesia complication Cancer Social History Smoking and tobacco status: former smoker Quit status (tobacco): has quit using tobacco Second hand smoke exposure: No Smoking risk assessment/counseling performed?: No Alcohol intake: never Desire information about alcohol rehabilitation?: No Counseling given: No Desire information about substance/drug rehabilitation?: No Counseling given: No Caregiver/support person: Yes Lives independently: Yes Household members: spouse Current occupational status: retired and disabled Current gender identity: Male Physical Exam Const: COMMON NORMALS: no acute distress, patient oriented x3 and healthy appearing HENMT: COMMON NORMALS: normocephalic and atraumatic HEAD & SCALP: normocephalic and atraumatic Eye: COMMON NORMALS: Equal, round and reactive pupils present and EOMs intact bilaterally PUPIL: Yes Equal, round and reactive pupils present Neck/C-Spine: COMMON NORMALS: full ROM and supple Chest: COMMONS NORMALS: normal inspection of the chest and normal palpation of entire chest wall Resp: COMMON NORMALS: normal respiratory effort, No retractions, No use of accessory muscles and clear to auscultation bilaterally AUSCULTATION: clear to auscultation bilaterally Cardio: COMMON NORMALS: regular rate, regular rhythm and No murmurs present (Cardio) RATE: regular rate RHYTHM: regular rhythm GI: COMMON NORMALS: Normal to inspection, nondistended, normoactive bowel sounds present, Soft to palpation, non-tender and no masses PALPATION: Yes Soft to palpation Extremity: COMMON NORMALS: normal to inspection and full ROM Neuro: COMMON NORMALS: patient oriented x3, moves all extremities and no focal motor deficits Psych: COMMON NORMALS: mental status grossly normal, Normal thought process present and cooperative THOUGHT PROCESS: Normal thought process present Skin: COMMON NORMALS: no rashes or lesions noted and no wounds GENERAL SKIN EXAM: no rashes or lesions noted Course Vital Signs: Vital signs: Vital Signs Temperature 97.8 F 10/03/21 02:43 Pulse Rate 48 L 10/03/21 05:05 Respiratory Rate 16 10/03/21 05:05 Blood Pressure 145/66 10/03/21 05:05 Pulse Oximetry 97 10/03/21 05:05 Oxygen Delivery Me thod 10/03/21 05:05 MDM - Abdominal Pain Medical Decision Making Patient presents here with abdominal swelling with minimal abdominal pain his exam at discharge is benign CT shows no acute findings blood work is normal he is stable for discharge he is to follow-up his PCP and return if worsening. Lab Data : 10/03/21 02:55 10/03/21 02:55 Labs/Radiology: Radiology Impressions Abdomen/Pelvis CT 10/03/21 02:45 IMPRESSION: 1. Nonspecific slightly prominent perigastric lymph nodes. Mild wall thickening of the stomach which may be seen with gastritis. Findings may be exaggerated by limited gastric distention. 2. Enlarged prostate gland. Laboratory Results WBC 9.5 10^3/uL (4.0-10.0) 10/03/21 02:55 RBC 4.21 10^6/uL (4.1-5.3) 10/03/21 02:55 Hgb 12.9 g/dL (11.7-16.6) 10/03/21 02:55 Hct 38.9 % (42.0-52.0) L 10/03/21 02:55 MCV 92.4 fl (80-94) 10/03/21 02:55 MCH 30.6 pg (28.0-34.0) 10/03/21 02:55 MCHC 33.2 g/dL (30.0-36.0) 10/03/21 02:55 RDW 13.3 % (12.1-15.1) 10/03/21 02:55 Plt Count 308 10^3/cmm (130-400) 10/03/21 02:55 MPV 11.3 fL (7.4-10.4) H 10/03/21 02:55 Neut % (Auto) 64.9 % 10/03/21 02:55 Lymph % (Auto) 17.1 % 10/03/21 02:55 Baker % (Auto) 14.5 % 10/03/21 02:55 Eos % (Auto) 3.0 % 10/03/21 02:55 Baso % (Auto) 0.2 % 10/03/21 02:55 Neut # (Auto) 6.14 10^3/uL (1.8-7.7) 10/03/21 02:55 Lymph # (Auto) 1.6 10^3/uL (0.8-4.8) 10/03/21 02:55 Baker # (Auto) 1.4 10^3/uL (0.2-0.9) H 10/03/21 02:55 Eos # (Auto) 0.3 10^3/uL (0.0-0.8) 10/03/21 02:55 Baso # (Auto) 0.0 10^3/uL (0.0-0.1) 10/03/21 02:55 Nucleated RBC % (auto) 0 % 10/03/21 02:55 Nucleated RBCs # 0.0 /100WBC 10/03/21 02:55 Sodium 135 mmol/L (136-145) L 10/03/21 02:55 Potassium 4.3 mmol/L (3.5-5.1) 10/03/21 02:55 Chloride 102 mmol/L (98-107) 10/03/21 02:55 Carbon Dioxide 20 mmol/L (22-29) L 10/03/21 02:55 Anion Gap 17.3 (5-19) 10/03/21 02:55 BUN 32 mg/dL (8-23) H 10/03/21 02:55 Creatinine 1.0 mg/dL (0.7-1.2) 10/03/21 02:55 GFR Calculation Not Reportable 10/03/21 02:55 Glucose 153 mg/dL (65-115) H 10/03/21 02:55 Calculated Osmolality 290 mOsm/kg (285-295) 10/03/21 02:55 Calcium 9.3 mg/dL (8.5-10.5) 10/03/21 02:55 Total Bilirubin 0.2 mg/dL (0.15-1.2) 10/03/21 02:55 AST 16 U/L (0-40) 10/03/21 02:55 ALT 22 U/L (0-41) 10/03/21 02:55 Alkaline Phosphatase 55 IU/L (40-130) 10/03/21 02:55 NT-Pro-B Natriuret Pep 332 pg/mL (0-450) 10/03/21 02:55 Total Protein 7.0 g/dL (6.6-8.7) 10/03/21 02:55 Albumin 3.7 g/dL (3.5-5.2) 10/03/21 02:55 Globulin 3.3 g/dL (1.3-4.6) 10/03/21 02:55 Lipase 31 U/L (13-60) 10/03/21 02:55 EKG Data EKG 1: I personally reviewed and interpreted this EKG as follows: EKG interpretation date: 10/03/21 EKG interpretation time: 03:01 Interpretation: sinus tiara hr [address] or t wave abnormalities qrs 106 qtc 419 Discharge Plan Discharge Patient Disposition: Home Clinical Impression: Abdominal pain Condition: Stable Prescriptions: No Action cholecalciferol (vitamin D3) 1,000 unit capsule 1,000 unit PO DAILY@07 aspirin [Adult Low Dose Aspirin] 81 mg tablet,delayed release (DR/EC) 81 mg PO DAILY@07 (DME) 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 See Rx Instructions .Route .MEDSUPPLY Qty: 1 0RF Rx Instructions: As directed amlodipine-benazepril 10-40 mg capsule 1 cap PO DAILY 90 Days Qty: 90 1RF clopidogrel 75 mg tablet 75 mg PO DAILY 90 Days Qty: 90 1RF glipizide 10 mg tablet See Rx Instructions .ROUTE .COMPLEX Qty: 180 1RF Dose Instruction: TAKE 1 TABLET TWICE DAILY Rx Instructions: TAKE 1 TABLET TWICE DAILY pantoprazole 40 mg tablet,delayed release (DR/EC) 40 mg PO DAILY 90 Days Qty: 90 1RF tamsulosin 0.4 mg capsule 0.4 mg PO DAILY 90 Days Qty: 90 1RF hydralazine 100 mg tablet 100 mg PO TID 90 Days Qty: 270 1RF miscellaneous medical supply [facility] [place] See Rx Instructions miscellaneous .COMPLEX Qty: 1 0RF Rx Instructions: socket replacement on left stump miscellaneous; miscellaneous medical supply [facility] [place] See Rx Instructions miscellaneous .COMPLEX Qty: 1 0RF Rx Instructions: rigth foot/ankle brace miscellaneous; miscellaneous medical supply [facility] See Rx Instructions miscellaneous .COMPLEX Qty: 1 0RF Rx Instructions: 1 pair diabetic shoes miscellaneous; miscellaneous medical supply Misc 1 ea miscellaneous ONCE 365 Days Qty: 1 0RF alcohol swabs [BD Alcohol Swabs] Pads, Medicated 1 pad topical DAILY Qty: 200 12RF miscellaneous medical supply Misc 1 ea miscellaneous ONCE Qty: 1 0RF Rx Instructions: prosthesis spironolacton-hydrochlorothiaz 25-25 mg tablet See Rx Instructions .ROUTE .COMPLEX Qty: 90 3RF Dose Instruction: TAKE 1 TABLET EVERY DAY Rx Instructions: TAKE 1 TABLET EVERY DAY sildenafil (pulm.hypertension) 20 mg tablet 20 mg PO DAILY PRN (Reason: sexual activity) Qty: 30 0RF Rx Instructions: 30 min before sexual activity Discharge Orders: Discharge ED (Routine); Ordered 10/03/21 Ordered By: Homero Davis Referrals: Angie Zarate MD [Primary Care Provider] - 1-3 days Discharge Diet: Advance as tolerated Discharge Activity: Resume usual activity Patient Instructions: Abdominal Pain (ED) Coding Level of Care Code ED Cable Maker for Chg Fwd Exam Comprehensive
[2021-10-03 02:59] LABS: Basophils % 0.2 %; Eosinophils # 0.3 10^3/uL (0.0-0.8); Hematocrit 38.9 % (42.0-52.0); Hemoglobin 12.9 g/dL (11.7-16.6); Lymphocytes # 1.6 10^3/uL (0.8-4.8); Lymphocytes % 17.1 %; Mean Corpuscular HGB Conc 33.2 g/dL (30.0-36.0); Mean Corpuscular Hemoglobin 30.6 pg (28.0-34.0); Mean Corpuscular Volume 92.4 fl (80-94); Mean Platelet Volume 11.3 fL (7.4-10.4); Monocytes # 1.4 10^3/uL (0.2-0.9); Monocytes % 14.5 %; Neutrophils # 6.14 10^3/uL (1.8-7.7); Neutrophils % 64.9 %; Nucleated Red Blood Cells % 0 %; Platelet Count 308 10^3/cmm (130-400); Red Blood Count 4.21 10^6/uL (4.1-5.3); Red Cell Distribution Width 13.3 % (12.1-15.1); White Blood Count 9.5 10^3/uL (4.0-10.0)
--- NOTE | 2021-10-03 03:01 | ECG_ITS ---
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 Measurements Intervals [place] Rate: 53 P: 62 ME: 208 QRS: 12 QRSD: 106 T: 50 QT: 435 QTc: 412 Interpretive Statements SINUS BRADYCARDIA NONSPECIFIC T-WAVE ABNORMALITY Compared to ECG 08/26/2019 12:02:17 T-wave abnormality now present Electronically Signed On 10-03-2021 21:28:12 CDT by Yves San M.D. [id number]
[2021-10-03 03:28] LABS: Alanine Aminotransferase 22 U/L (0-41); Albumin Level 3.7 g/dL (3.5-5.2); Alkaline Phosphatase 55 IU/L (40-130); Anion Gap 17.3 (5-19); Aspartate Amino Transferase 16 U/L (0-40); Blood Urea Nitrogen 32 mg/dL (8-23); Calcium 9.3 mg/dL (8.5-10.5); Carbon Dioxide 20 mmol/L (22-29); Chloride 102 mmol/L (98-107); Globulin 3.3 g/dL (1.3-4.6); Glucose 153 mg/dL (65-115); Lipase 31 U/L (13-60); NT Pro B Type Natriuretic Pept 332 pg/mL (0-450); Osmolality Calculated 290 mOsm/kg (285-295); Potassium 4.3 mmol/L (3.5-5.1); Sodium 135 mmol/L (136-145); Total Bilirubin 0.2 mg/dL (0.15-1.2)
[2021-10-03 03:40] VITALS: BP 145/69; PULSE 59; RESP 20
[2021-10-03 05:05] VITALS: BP 145/66; PULSE 48; RESP 16; O2SAT 97
--- NOTE | 2021-10-03 05:08 | PC.NURSE ---
Pt's HR has fluctuated between 40-[address] Davis made aware. No new orders. Pt states this is his normal heartrate. Denies any symptoms. AAOx3.
[2021-10-03 05:30] VITALS: BP 165/68; PULSE 43; RESP 18; O2SAT 93
--- NOTE | 2021-10-03 05:34 | PC.NURSE ---
Updated , Katherin, pt is ready to be picked up. She stated she would be on her way, but they live about an hour out.
[2021-10-03 06:01] VITALS: BP 138/48; PULSE 44; RESP 16; O2SAT 94
== END 2021-10-03 06:52 | disposition home or self-care (01) ==
PROVIDERS: Emergency Provider Emergency Medicine; PCP Family Medicine
DX: R10.9 Unspecified abdominal pain (principal); Z79.84 Long term (current) use of oral hypoglycemic drugs; Z79.02 Long term (current) use of antithrombotics/antiplatelets; Z79.82 Long term (current) use of aspirin; I25.10 Atherosclerotic heart disease of native coronary artery without angina pectoris; E11.9 Type 2 diabetes mellitus without complications; I10 Essential (primary) hypertension; Z87.891 Personal history of nicotine dependence
CPT/HCPCS: 74176; 80053; 83690; 83880; 85025; 93005; 99285

== ENCOUNTER → 2021-10-24 14:18 | Outpatient (BNVA) | payer MEDICARE, SELFPAY | PROVIDERS: PCP Family Medicine; Visit Provider Surgery | DX: R13.10 Dysphagia, unspecified (principal); R11.0 Nausea; K29.00 Acute gastritis without bleeding | CPT/HCPCS: 99203 ==

== ENCOUNTER 2021-10-31 08:30 | Day surgery (SDC) | payer MEDICARE, SELFPAY ==
[2021-10-29 16:13] VITALS: BMI 32.1
[2021-10-31 08:55] VITALS: BP 101/68; PULSE 62; RESP 18; TEMP 37.2; O2SAT 96
[2021-10-31] MEDS: sodium chloride 0.9% 1,000 ML 30 ML IV (09:01)
--- NOTE | 2021-10-31 09:38 | W.PM.OPSUD ---
Surgery/Procedure H&P Update DATE OF PROCEDURE: October 31, 2021 DATE H&P PERFORMED: 10/24/21 H&P UPDATE INFORMATION: I have reviewed H&P completed within last 30 days, I have examined patient prior to procedure and No changes to prior documentation PREOP DIAGNOSIS: Dysphagia PRIMARY INDICATION FOR PROCEDURE: The same PLANNED PROCEDURE: Operation Date: 10/31/21 10:15 Proposed Procedures p EGD 68365,R13.10(Not Applicable) - Mat Baeza MD
--- NOTE | 2021-10-31 09:44 | ANES.PREANE2 ---
Pre-Anesthetic Assessment Height/Weight: Height 1.8 m Weight 104.326 kg Temp Pulse Resp BP Pulse Ox O2 Del Method 99 F 62 18 101/68 96 10/31/21 08:55 10/31/21 08:55 10/31/21 08:55 10/31/21 08:55 10/31/21 08:55 10/31/21 08:55 Preop Diagnosis: Dysphagia Operation Date: 10/31/21 10:15 Proposed Procedures p EGD 59410,R13.10(Not Applicable) - Mat Baeza MD Familial anesthetic complications: none Was Beta Ceci taken within 24 hours: N/A Was Clonidine taken within 24 hours: N/A Last intake: Intake Last Liquid Date 10/30/21 Last Liquid Time 19:00 Last Solid Date 10/30/21 Last Solid Time 19:00 Social No alcohol and No tobacco (h/o smoking) Exam alert, oriented x 3 and regular rate & rhythm Airway Submandibular: within normal limits Cervical ROM: within normal limits Mallampati: Class II Dentition: partials CV/HEM Hypertension and Peripheral Vascular Disease GI Gastroesophageal Reflux Disease Metabolic Hyperlipidemia and Morbid Obesity Neuropsych Neuropathy Anesthetic Plan ASA status: 3 Anesthesia: MAC Medications/Allergies Home Medications Medication Instructions Recorded Confirmed Last Taken Type aspirin 81 mg tablet,delayed 81 mg PO DAILY@03/15/19 10/29/21 02/24/20 History release (Adult Low Dose Aspirin) cholecalciferol (vitamin D3) 25 1,000 unit PO DAILY@03/15/19 10/29/21 10/30/21 History mcg (1,000 unit) capsule stump cuff stitcher #1 ea 03/13/20 10/25/21 Unknown Rx miscellaneous medical supply 1 ea miscellaneous ONCE 365 days 03/23/20 10/29/21 Unknown Rx #1 ea miscellaneous medical supply See Rx Instructions miscellaneous 05/02/20 10/29/21 Unknown Rx .COMPLEX #1 ea miscellaneous medical supply See Rx Instructions miscellaneous 05/02/20 10/29/21 Unknown Rx .COMPLEX #1 ea alcohol swabs (BD Alcohol Swabs) 1 pad topical DAILY #200 ea 05/25/20 10/29/21 Unknown Rx miscellaneous medical supply 1 ea miscellaneous ONCE #1 ea 08/07/20 10/29/21 Unknown Rx spironolactone 25 See Rx Instructions .Route 05/20/21 10/29/21 10/30/21 Rx mg-hydrochlorothiazide 25 mg tablet .COMPLEX #90 tabs amlodipine 10 mg-benazepril 40 mg 1 cap PO DAILY 90 days #90 caps 08/06/21 10/29/21 10/30/21 Rx capsule clopidogrel 75 mg tablet 75 mg PO DAILY 90 days #90 tabs 08/06/21 10/29/21 Unknown Rx glipizide 10 mg tablet See Rx Instructions .Route 08/06/21 10/29/21 Unknown Rx .COMPLEX #180 tabs hydralazine 100 mg tablet 100 mg PO TID 90 days #270 tabs 08/06/21 10/29/21 10/30/21 Rx tamsulosin 0.4 mg capsule 0.4 mg PO DAILY 90 days #90 caps 08/06/21 10/29/21 10/30/21 Rx miscellaneous medical supply See Rx Instructions miscellaneous 08/10/21 10/29/21 Unknown Rx .COMPLEX #1 ea sildenafil (pulm.hypertension) 20 20 mg PO DAILY PRN sexual activity 08/18/21 10/29/21 10/30/21 Rx mg tablet #30 tabs pantoprazole 40 mg tablet,delayed 40 mg PO BID 90 days #180 tabs 10/07/21 10/29/21 10/30/21 Rx release sucralfate 1 gram tablet 1 g PO .COMPLEX #60 tabs 10/07/21 10/29/21 Unknown Rx ondansetron HCl 4 mg tablet 4 mg PO DAILY PRN nausea and 10/10/21 10/29/21 10/30/21 Rx vomiting 30 days #30 tabs Allergies Allergy/AdvReac Type Severity Reaction Status Date / Time Penicillins Allergy Mild ADR-Nausea Verified 10/25/21 17:29 Current Medications Generic Name Dose Route Start Last Admin Trade Name Freq PRN Reason Stop Dose Admin Sodium Chloride 1,000 mls @ 30 mls/hr 10/31/21 07:45 10/31/21 09:01 Sodium Chloride 0.9% IV 30 mls/hr .Q24H DUGLAS Administration PFSH Anesthesia Medical History BPH (benign prostatic hyperplasia) CAD (coronary artery disease) Charcot's arthropathy Diabetes GERD (gastroesophageal reflux disease) History of amputation of right great toe Hypertension Macular edema Obesity PAD (peripheral artery disease) Peripheral neuropathy Renal insufficiency Surgical History H/O eye surgery History of cardiac cath History of coronary artery stent placement Family History Denies family history of Diabetes Dementia Anesthesia complication Cancer Social History Smoking and tobacco status: former smoker Quit status (tobacco): has quit using tobacco Second hand smoke exposure: No Smoking risk assessment/counseling performed?: No Alcohol intake: never Desire information about alcohol rehabilitation?: No Counseling given: No Desire information about substance/drug rehabilitation?: No Counseling given: No Caregiver/support person: Yes Lives independently: Yes Household members: spouse Current occupational status: retired and disabled Current gender identity: Male Data Anesthesia Cardiac Studies: No Data to Display
[2021-10-31 10:35] VITALS: BP 113/69; PULSE 52; RESP 16; TEMP 36.1; O2SAT 88
[2021-10-31 10:40] VITALS: BP 105/60; PULSE 48; RESP 16; O2SAT 90
[2021-10-31 10:50] VITALS: BP 127/61; PULSE 45; RESP 18; O2SAT 96
[2021-10-31] MEDS: ondansetron 2 mg/ML SDV 2 mL 4 MG IVP (10:58)
[2021-10-31 11:00] VITALS: BP 133/58; PULSE 51; RESP 18; O2SAT 95
--- NOTE | 2021-10-31 11:05 | PC.NURSE ---
1050 patient moaning and groaning. at bedside. states he does this at home. 1055patinet dry heaving. 1058 zofran 4mg given sivp
--- NOTE | 2021-10-31 11:14 | XR_ITS ---
WS: [id number] Portable AP upright chest, 10/31/2021 Clinical Data: Status post EGD and biopsy from proximal stomach for gastric Comparison: Portable chest, 02/29/2020. Findings: No nodules, masses or effusions are seen. The heart is normal. The pulmonary vascularity is not increased. No pneumonia or pneumothorax is seen. There is minimal patchy atelectasis over the wharton rface of left diaphragm. The aortic arch and descending thoracic aorta show mild calcification and to rtuosity. XR/XR chest 1V portable [id number] Impression: Atherosclerosis.
--- NOTE | 2021-10-31 11:14 | PC.NURSE ---
1110 Dr Baeza at bedside. patient continues to c/o pain, upper abdominal pain. Dr Baeza spoke with patient about procedure and using air to assess stomach. Concerns of cancer and he took biopsies. Dr Baeza is going to order a chest xray prior to discharge.
[2021-10-31 11:16] VITALS: BP 130/60; PULSE 48; RESP 18; O2SAT 97
--- NOTE | 2021-10-31 11:23 | PC.NURSE ---
1123 xray here for chest xray. Dr Baeza at bedside.
--- NOTE | 2021-10-31 11:27 | PC.NURSE ---
1125 Dr aBeza at bedside, reviewed xray, states patient is able to discharge home. 1128 patient states pain down to a 5
--- NOTE | 2021-10-31 11:45 | PC.NURSE ---
1140 reviewed discharge instructions with patient and . assisted patient to sit on side of bed. pain down to a 2, patient no longer moaning and groaning. passing gas. pleasant and talkative.
--- NOTE | 2021-10-31 11:46 | SUR.EXTENDED ---
1146 dentures and personal belongings returned to patient. assisting patient getting dressed.
--- NOTE | 2021-10-31 13:32 | ANE.PACU2 ---
Inpatient post-anesthesia follow up: Airway intact: Yes Vital signs: Temperature 97.0 F Pulse Rate 48 Respiratory Rate 18 Blood Pressure 130/60 Pulse Oximetry 97 Oxygen Delivery Me thod Room Air Oxygen Flow Rate 2 Fraction of Inspir ed Oxygen Hydration adequate: Yes Nausea and vomiting: No Pain level: 1 Mental status: Baseline
== END 2021-10-31 12:00 | disposition home or self-care (01) ==
PROVIDERS: PCP Family Medicine; Visit Provider Surgery
PROC: 0DJ08ZZ Inspection of Upper Intestinal Tract, Via Natural or Artificial Opening Endoscopic (ICD-10-PCS; CPT 43235; principal; 2021-10-31 10:15)
DX: K29.50 Unspecified chronic gastritis without bleeding (principal); I10 Essential (primary) hypertension; I25.10 Atherosclerotic heart disease of native coronary artery without angina pectoris; E11.51 Type 2 diabetes mellitus with diabetic peripheral angiopathy without gangrene; E11.42 Type 2 diabetes mellitus with diabetic polyneuropathy; E66.9 Obesity, unspecified; Z68.32 Body mass index [BMI] 32.0-32.9, adult; Z79.84 Long term (current) use of oral hypoglycemic drugs; Z79.82 Long term (current) use of aspirin; Z87.891 Personal history of nicotine dependence; Z88.0 Allergy status to penicillin; Z89.512 Acquired absence of left leg below knee
CPT/HCPCS: 43239; 71045; 88305; 88342; J2405; J2704; J7030

== ENCOUNTER → 2021-11-06 13:22 | Outpatient (BNVA) | payer MEDICARE, SELFPAY | PROVIDERS: PCP Family Medicine; Visit Provider Surgery | DX: Z09 Encounter for follow-up examination after completed treatment for conditions other than malignant neoplasm (principal); K31.89 Other diseases of stomach and duodenum | CPT/HCPCS: 99213 ==

== ENCOUNTER 2021-11-13 19:48 | Emergency (ER) | payer MEDICARE, SELFPAY ==
[2021-11-13 20:20] VITALS: BP 139/68; PULSE 54; RESP 16; O2SAT 94
[2021-11-13 20:22] VITALS: BMI 30.7
--- NOTE | 2021-11-13 20:25 | XRR_ITS ---
PROCEDURE INFORMATION: Exam: XR Chest Exam date and time: 11/13/2021 8:37 PM Age: 81 years old Clinical indication: Dyspnea TECHNIQUE: Imaging protocol: Radiologic exam of the chest. Views: 1 view. COMPARISON: CR XR chest 1V portable [id number] 10/31/2021 11:23 AM FINDINGS: Lungs: Unremarkable. No consolidation. Pleural spaces: Unremarkable. No pleural effusion. No pneumothorax. Heart/Mediastinum: Cardiomegaly. Bones/joints: Unremarkable. XR/XR chest 1V portable [id number] IMPRESSION: Cardiomegaly, lungs are clear.
--- NOTE | 2021-11-13 20:26 | ECG_ITS ---
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 Measurements Intervals [place] Rate: 59 P: 79 [place]: 259 QRS: 7 QRSD: 99 T: 57 QT: 400 QTc: 398 Interpretive Statements SINUS BRADYCARDIA WITH FIRST DEGREE AV BLOCK NONSPECIFIC T-WAVE ABNORMALITY Compared to ECG 10/03/2021 03:01:23 First degree AV block now present T-wave abnormality still present Electronically Signed On 11-13-2021 21:32:07 CDT by Kwame Orozco M.D. [id number]
--- NOTE | 2021-11-13 20:26 | W.ED.GENADLT ---
HPI - General Adult General: Chief complaint: Abdominal Pain Stated complaint: ABD PAIN Time Seen by Provider: 11/13/21 20:12 History of Present Illness: Patient is an 81-year-old male with a history of BPH, CAD, GERD, recent multiple EGD studies for stomach mass presenting to the emergency room with complaints of abdominal pain radiating to the chest x 1 month that is worsening. Patient tells me that for the last 4 weeks, he has had ongoing crampy lower abdominal pain with radiation to the chest. Patient has had increasing frequency Of episodes especially after taking pills or eating. Since earlier today, patient has significant lower abd pain radiating towards the chest. Patient tells me that recently he underwent EGD and was referred to [facility] for further evaluation. Patient denies any melena hematochezia, or complaints currently. She denies any hemoptysis or hematemesis. At the present time, patient denies have any exertional chest pain or pleuritic chest pain, fever/chills, cough, runny nose, or sore throat. Onset: yesterday Duration:ongoing Location:home Severity:mild/moderate Associated symptoms: Deny chest pain, dyspnea, nausea, rash, palpitations or vomiting Review of Systems Const: Denies: fever(s) or chills Eyes: Denies: change in vision ENMT: Denies: mouth pain Card: Denies: chest pain or palpitations Resp: Denies: dyspnea or non-productive cough GI: Reports: abdominal pain (+lower abd pain radiating to the chest); Denies: nausea, vomiting or diarrhea : Denies: dysuria Musc: Denies: extremity pain Skin/Breast: Denies: rash or new lesions Neuro: Denies: weakness in extremities Psych: Reports: other (Normal mood) Dick/Lymph: Denies: easy bruising PFSH ED PFSH: Medical History BPH (benign prostatic hyperplasia) CAD (coronary artery disease) Charcot's arthropathy Diabetes GERD (gastroesophageal reflux disease) History of amputation of right great toe Hypertension Macular edema Obesity PAD (peripheral artery disease) Peripheral neuropathy Renal insufficiency Surgical History H/O eye surgery History of cardiac cath History of coronary artery stent placement Family History Denies family history of Diabetes Dementia Anesthesia complication Cancer Social History Smoking and tobacco status: former smoker Quit status (tobacco): has quit using tobacco Second hand smoke exposure: No Smoking risk assessment/counseling performed?: No Alcohol intake: never Desire information about alcohol rehabilitation?: No Counseling given: No Desire information about substance/drug rehabilitation?: No Counseling given: No Caregiver/support person: Yes Lives independently: Yes Household members: spouse Current occupational status: retired and disabled Current gender identity: Male Physical Exam Const: COMMON NORMALS: alert HENMT: COMMON NORMALS: atraumatic HEAD & SCALP: atraumatic MOUTH: moist mucous membranes not abnormal Eye: COMMON NORMALS: EOMs intact bilaterally and conjunctivae normal CONJUNCTIVA: Yes conjunctivae normal Neck/C-Spine: COMMON NORMALS: full ROM and supple Resp: COMMON NORMALS: normal respiratory effort and clear to auscultation bilaterally AUSCULTATION: clear to auscultation bilaterally Cardio: COMMON NORMALS: regular rate RATE: regular rate GI: COMMON NORMALS: Soft to palpation and non-tender PALPATION: Yes Soft to palpation OTHER: No focal TTP. NO guarding rebound, guarding, rigidity. No CVA tenderness to percussion. Neg Barr/Neg McBurney's point tenderness, no suprabupic tenderness to palpation. Extremity: COMMON NORMALS: full ROM Neuro: SENSORIUM/ORIENTATION: Yes alert MOTOR EXAM: No Abnormal motor strength present and Other motor observations present (no focal motor deficits) Psych: COMMON NORMALS: speech normal SPEECH: Yes normal speech MOOD & AFFECT: Yes euthymic mood Course Vital Signs: Vital signs: Vital Signs Pulse Rate 54 L 11/13/21 20:20 Respiratory Rate 16 11/13/21 20:55 Blood Pressure 139/68 11/13/21 20:20 Pulse Oximetry 94 11/13/21 20:20 Oxygen Delivery Me thod 11/13/21 20:20 MDM - General Adult Medical Decision Making Patient is an 81-year-old male with a history of BPH, CAD, GERD, recent multiple EGD studies for stomach mass presenting to the emergency room with complaints of abdominal pain radiating to the chest x 1 month that is worsening. On physical exam, patient has no focal tenderness palpation in the lower quadrants. White count 12.1. Creatinine 1.5 above baseline. Patient received [address] abdomen pelvis did not show any focal findings of acute pathology other than 4.9 x 4.2 cm mass on the left curvature of the stomach. Patient at the present time does not have any hematemesis melena hematochezia, do not suspect acute GI bleeding. CT abdomen pelvis is negative for any other acute pathology at this time. Patient is instructed follow-up with primary care provider for repeat kidney check in 1 week to ensure that his kidney is not worsening. Patient is also instructed drink plenty of water. Initial troponin of 66. Has no active complaints of chest pain. Each episode of chest pain is only associated with and after abdominal pain. EKG is nonischemic. Repeat troponin similar to baseline. At the present time, I do not suspect patient has ACS or unstable angina given the nature of the pain. Rx tylenol PRN abd pain, maalox/pepcid PRN dyspepsia, and zofran PRN nausea/vomiting Disposition: Discharge. Patient counseled regarding diagnostic impression, treatment plan. Patient given ED strict return precautions to return for continuation, worsening, or development of new symptoms. Instructed to f/u w/ PCP regarding symptoms today. Patient verbalized understanding. Patient is instructed follow GI provider for the diascopy and evaluation of the stomach mass. Lab Data : 11/13/21 21:04 11/13/21 21:04 Radiology Impressions Abdomen/Pelvis CT 11/13/21 20:25 IMPRESSION: 1. 4.9 x 4.2 cm mass is seen which appears to be arising from the lesser curvature of the stomach projected medially and contacts the posterior aspect of the pancreas as well as the left gastric artery, similar to prior exam, concerning for underlying malignancy. Associated with this is at least one prominent lymph node seen lateral to the superior mesenteric artery measuring up to 2.4 cm concerning for metastatic disease. 2. Diverticulosis without diverticulitis. 3. Prostate gland enlarged indenting the base of the urinary bladder. 4. Coronary artery atherosclerotic calcifications. 5. Emphysematous changes. 6. Bibasilar atelectasis. Chest X-Ray 11/13/21 20:25 IMPRESSION: Cardiomegaly, lungs are clear. Laboratory Results WBC 12.1 10^3/uL (4.0-10.0) H 11/13/21 21:04 RBC 3.73 10^6/uL (4.1-5.3) L 11/13/21 21:04 Hgb 11.4 g/dL (11.7-16.6) L 11/13/21 21:04 Hct 34.1 % (42.0-52.0) L 11/13/21 21:04 MCV 91.4 fl (80-94) 11/13/21 21:04 MCH 30.6 pg (28.0-34.0) 11/13/21 21:04 MCHC 33.4 g/dL (30.0-36.0) 11/13/21 21:04 RDW 13.3 % (12.1-15.1) 11/13/21 21:04 Plt Count 348 10^3/cmm (130-400) 11/13/21 21:04 MPV 10.7 fL (7.4-10.4) H 11/13/21 21:04 Neut % (Auto) 79.2 % 11/13/21 21:04 Lymph % (Auto) 8.6 % 11/13/21 21:04 [place] % (Auto) 10.1 % 11/13/21 21:04 Eos % (Auto) 1.2 % 11/13/21 21:04 Baso % (Auto) 0.2 % 11/13/21 21:04 Neut # (Auto) 9.57 10^3/uL (1.8-7.7) H 11/13/21 21:04 Lymph # (Auto) 1.0 10^3/uL (0.8-4.8) 11/13/21 21:04 [place] # (Auto) 1.2 10^3/uL (0.2-0.9) H 11/13/21 21:04 Eos # (Auto) 0.2 10^3/uL (0.0-0.8) 11/13/21 21:04 Baso # (Auto) 0.0 10^3/uL (0.0-0.1) 11/13/21 21:04 Nucleated RBC % (auto) 0 % 11/13/21 21:04 Nucleated RBCs # 0.0 /100WBC 09/07/22 21:04 Sodium 130 mmol/L (136-145) L 11/13/21 21:04 Potassium 4.2 mmol/L (3.5-5.1) 11/13/21 21:04 Chloride 100 mmol/L (98-107) 11/13/21 21:04 Carbon Dioxide 17 mmol/L (22-29) L 11/13/21 21:04 Anion Gap 17.2 (5-19) 11/13/21 21:04 BUN 43 mg/dL (8-23) H 11/13/21 21:04 Creatinine 1.5 mg/dL (0.7-1.2) H 11/13/21 21:04 GFR Calculation Not Reportable 11/13/21 21:04 Glucose 73 mg/dL (65-115) 11/13/21 21:04 Calculated Osmolality 279 mOsm/kg (285-295) L 11/13/21 21:04 Lactate 1.0 mmol/L (0.5-2.2) 11/13/21 21:04 Calcium 9.0 mg/dL (8.5-10.5) 11/13/21 21:04 Total Bilirubin 0.4 mg/dL (0.15-1.2) 11/13/21 21:04 AST 17 U/L (0-40) 11/13/21 21:04 ALT 18 U/L (0-41) 11/13/21 21:04 Alkaline Phosphatase 59 U/L (40-130) 11/13/21 21:04 Troponin T Baseline 66 ng/L (0-15) H 11/13/21 21:04 Total Protein 6.6 g/dL (6.6-8.7) 11/13/21 21:04 Albumin 3.4 g/dL (3.5-5.2) L 11/13/21 21:04 Globulin 3.2 g/dL (1.3-4.6) 11/13/21 21:04 Lipase 32 U/L (13-60) 11/13/21 21:04 Urine Color Yellow (Yellow) 11/13/21 21:04 Urine Appearance Clear (CLEAR) 11/13/21 21:04 Urine pH 5 (5-7) 11/13/21 21:04 Ur Specific [place] 1.015 (1.005-1.030) 11/13/21 21:04 Urine Protein Neg (Negative) 11/13/21 21:04 Urine Glucose (UA) Norm (Normal) 11/13/21 21:04 Urine Ketones 1+ (Negative) H 11/13/21 21:04 Urine Blood Neg (Negative) 11/13/21 21:04 Urine Nitrate Negative (Negative) 11/13/21 21:04 Urine Bilirubin Neg (Negative) 11/13/21 21:04 Urine Urobilinogen Norm mg/dL (Negative) 11/13/21 21:04 Ur Leukocyte Esterase Negative (Negative) 11/13/21 21:04 Imaging Data Other Imaging: Radiologist's impression: 4th [place] [address] XRay Report Signed Patient: Marcus Thompson Unit #: [id number] : 1940 Age/Sex: 81 / M ADM Date: 11/13/21 Loc: ER Room/Bed: Attending Dr: Ordering Provider/Ordering MD: Mariana Miller MD Date of Service: 11/13/21 Procedure(s): XR chest 1V portable [id number] Accession Number(s): [id number] Report Number: [id number] PROCEDURE INFORMATION: Exam: XR Chest Exam date and time: 11/13/2021 8:37 PM Age: 81 years old Clinical indication: Dyspnea TECHNIQUE: Imaging protocol: Radiologic exam of the chest. Views: 1 view. COMPARISON: CR XR chest 1V portable [id number] 10/31/2021 11:23 AM FINDINGS: Lungs: Unremarkable. No consolidation. Pleural spaces: Unremarkable. No pleural effusion. No pneumothorax. Heart/Mediastinum: Cardiomegaly. Bones/joints: Unremarkable. XR/XR chest 1V portable [id number] IMPRESSION: Cardiomegaly, lungs are clear. ? Dictated By: Jorge Abreu MD Signed By: Jorge Abreu MD Signed Date/Time: 11/13/212055 DD/ [address] [address] [address] Scan Report Signed Patient: Marcus Thompson Unit #: [id number] : 1940 Age/Sex: 81 / M ADM Date: 11/13/21 Loc: ER Room/Bed: Attending Dr: Ordering Provider/Ordering MD: Mariana Miller MD Date of Service: 11/13/21 Procedure(s): CT abdomen pelvis w con* [id number] Accession Number(s): [id number] Report Number: [id number] PROCEDURE INFORMATION: Exam: CT Abdomen And Pelvis With Contrast Exam date and time: 11/13/2021 8:37 PM Age: 81 years old Clinical indication: Abdominal pain; Prior surgery; Surgery type: Coronary stent; Patient HX: C/O epigastric pain. Documented in emr of history of gastric mass. ; Additional info: Abd pain TECHNIQUE: Imaging protocol: Computed tomography of the abdomen and pelvis with contrast. Radiation optimization: All CT scans at this facility use at least one of these dose optimization techniques: automated exposure control; mA and/or kV adjustment per patient size (includes targeted exams where dose is matched to clinical indication); or iterative reconstruction. Contrast material: OMNI 350; Contrast volume: 80 ml; Contrast route: INTRAVENOUS (IV);? COMPARISON: CT abdomen pelvis wo con [id number] 10/03/2021 3:20 AM RADIATION DOSE METRICS: Total DLP (mGy-cm): 1004.47 FINDINGS: Lungs: Emphysematous changes. Bibasilar atelectasis. Heart: Coronary artery atherosclerotic calcifications. Liver: Normal. No mass. Gallbladder and bile ducts: Normal. No calcified stones. No ductal dilation. Pancreas: Normal. No ductal dilation. Spleen: Normal. No splenomegaly. Adrenal glands: Normal. No mass. Kidneys and ureters: Normal. No hydronephrosis. Stomach and bowel: Diverticulosis without diverticulitis. Appendix: No evidence of appendicitis. Intraperitoneal space: Unremarkable. No free air. No significant fluid collection. Vasculature: 4.9 x 4.2 cm mass is seen which appears to be arising from the lesser curvature of the stomach projected medially and contacts the posterior aspect of the pancreas as well as the left gastric artery, similar to prior exam, concerning for underlying malignancy. Associated with this is at least one prominent lymph node seen lateral to the superior mesenteric artery measuring up to 2.4 cm concerning for metastatic disease. Lymph nodes: See Vasculature finding. Urinary bladder: Prostate gland enlarged indenting the base of the urinary bladder. Reproductive: See Urinary bladder finding. Bones/joints: Unremarkable. No acute fracture. Soft tissues: Unremarkable. CT/CT abdomen pelvis w con* [id number] IMPRESSION: 1. 4.9 x 4.2 cm mass is seen which appears to be arising from the lesser curvature of the stomach projected medially and contacts the posterior aspect of the pancreas as well as the left gastric artery, similar to prior exam, concerning for underlying malignancy. Associated with this is at least one prominent lymph node seen lateral to the superior mesenteric artery measuring up to 2.4 cm concerning for metastatic disease. 2. Diverticulosis without diverticulitis. 3. Prostate gland enlarged indenting the base of the urinary bladder. 4. Coronary artery atherosclerotic calcifications. 5. Emphysematous changes. 6. Bibasilar atelectasis. ? Dictated By: Jorge Abreu MD Signed By: Jorge Abreu MD Signed Date/Time: 11/13/212055 DD/ 36 Discharge Plan Discharge Condition: Stable Prescriptions: No Action cholecalciferol (vitamin D3) 1,000 unit capsule 1,000 unit PO DAILY@07 aspirin [Adult Low Dose Aspirin] 81 mg tablet,delayed release (DR/EC) 81 mg PO DAILY@07 Hold Instructions: Resume on 11/06/21. 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 glipizide 10 mg tablet See Rx Instructions .ROUTE .COMPLEX Qty: 180 1RF Dose Instruction: TAKE 1 TABLET TWICE DAILY Rx Instructions: TAKE 1 TABLET TWICE DAILY tamsulosin 0.4 mg capsule 0.4 mg PO DAILY 90 Days Qty: 90 1RF hydralazine 100 mg tablet 100 mg PO TID 90 Days Qty: 270 1RF miscellaneous medical supply Misc See Rx Instructions miscellaneous .COMPLEX Qty: 1 0RF Rx Instructions: socket replacement on left stump miscellaneous; miscellaneous medical supply Misc See Rx Instructions miscellaneous .COMPLEX Qty: 1 0RF Rx Instructions: rigth foot/ankle brace miscellaneous; miscellaneous medical supply Misc See Rx Instructions miscellaneous .COMPLEX Qty: 1 0RF Rx Instructions: 1 pair diabetic shoes miscellaneous; pantoprazole 40 mg tablet,delayed release (DR/EC) 40 mg PO BID 90 Days Qty: 180 1RF sucralfate 1 gram tablet 1 g PO .COMPLEX Qty: 60 1RF Rx Instructions: 1 g orally QID for 1 week then BID; hydrocodone-acetaminophen 5-325 mg tablet 1 tab PO TID PRN (Reason: pain) 7 Days Qty: 21 0RF ondansetron HCl 4 mg tablet 4 mg PO DAILY PRN (Reason: nausea and vomiting) 30 Days Qty: 30 1RF miscellaneous medical supply Misc 1 ea miscellaneous ONCE 365 Days Qty: 1 0RF miscellaneous medical supply Misc 1 ea miscellaneous ONCE Qty: 1 0RF Rx Instructions: prosthesis spironolacton-hydrochlorothiaz 25-25 mg tablet See Rx Instructions .ROUTE .COMPLEX Qty: 90 3RF Dose Instruction: TAKE 1 TABLET EVERY DAY Rx Instructions: TAKE 1 TABLET EVERY DAY sildenafil (pulm.hypertension) 20 mg tablet 20 mg PO DAILY PRN (Reason: sexual activity) Qty: 30 0RF Rx Instructions: 30 min before sexual activity alcohol swabs [BD Alcohol Swabs] Pads, Medicated 1 pad topical DAILY Qty: 200 12RF Referrals: Angie Zarate MD [Primary Care Provider] - Coding Level of Care Code 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
[2021-11-13] MEDS: iohexol 350 mg/mL 100 mL Btl IV (20:43)
[2021-11-13 20:55] VITALS: RESP 16
[2021-11-13] MEDS: morphine 4 mg/mL SDV 1 mL IVP (20:55)
[2021-11-13 21:12] LABS: Add Urine Microscopic? NO; Basophils % 0.2 %; Charge for UA Resulting for Rev; Eosinophils # 0.2 10^3/uL (0.0-0.8); Eosinophils % 1.2 %; Hematocrit 34.1 % (42.0-52.0); Hemoglobin 11.4 g/dL (11.7-16.6); Lymphocytes % 8.6 %; Mean Corpuscular HGB Conc 33.4 g/dL (30.0-36.0); Mean Corpuscular Hemoglobin 30.6 pg (28.0-34.0); Mean Corpuscular Volume 91.4 fl (80-94); Mean Platelet Volume 10.7 fL (7.4-10.4); Monocytes # 1.2 10^3/uL (0.2-0.9); Monocytes % 10.1 %; Neutrophils # 9.57 10^3/uL (1.8-7.7); Neutrophils % 79.2 %; Nucleated Red Blood Cells % 0 %; Platelet Count 348 10^3/cmm (130-400); Red Blood Count 3.73 10^6/uL (4.1-5.3); Red Cell Distribution Width 13.3 % (12.1-15.1); White Blood Count 12.1 10^3/uL (4.0-10.0)
[2021-11-13 21:15] LABS: Urine Appearance Clear (CLEAR); Urine Color Yellow (Yellow)
[2021-11-13 21:16] LABS: Bilirubin Urine Neg (Negative); Blood Urine Neg (Negative); Glucose Urine UA Norm (Normal); Ketones Urine 1+ (Negative); Leukocyte Esterase Urine Negative (Negative); Nitrate Urine Negative (Negative); Protein Urine Neg (Negative); Specific Gravity, Urine 1.015 (1.005-1.030); Urobilinogen Urine Norm (Negative); pH Urine 5 (5-7)
[2021-11-13 21:31] LABS: Troponin(5th) Baseline 66 ng/L (0-15)
[2021-11-13 21:33] LABS: Alanine Aminotransferase 18 U/L (0-41); Albumin Level 3.4 g/dL (3.5-5.2); Alkaline Phosphatase 59 U/L (40-130); Anion Gap 17.2 (5-19); Aspartate Amino Transferase 17 U/L (0-40); Blood Urea Nitrogen 43 mg/dL (8-23); Carbon Dioxide 17 mmol/L (22-29); Chloride 100 mmol/L (98-107); Globulin 3.2 g/dL (1.3-4.6); Glucose 73 mg/dL (65-115); Lipase 32 U/L (13-60); Osmolality Calculated 279 mOsm/kg (285-295); Potassium 4.2 mmol/L (3.5-5.1); Sodium 130 mmol/L (136-145); Total Bilirubin 0.4 mg/dL (0.15-1.2); Total Protein 6.6 g/dL (6.6-8.7)
[2021-11-13] MEDS: sodium chloride 0.9% 1,000 ML 999 ML IV (22:57)
[2021-11-13 22:58] VITALS: BP 159/55; PULSE 60; RESP 16; O2SAT 94
[2021-11-13 23:18] LABS: Troponin 5 2HR 51.62 ng/L (0-15)
== END 2021-11-14 00:01 | disposition home or self-care (01) ==
PROVIDERS: Emergency Provider Emergency Medicine; PCP Family Medicine
DX: R10.30 Lower abdominal pain, unspecified (principal); K21.9 Gastro-esophageal reflux disease without esophagitis; I25.10 Atherosclerotic heart disease of native coronary artery without angina pectoris; N40.0 Benign prostatic hyperplasia without lower urinary tract symptoms; I10 Essential (primary) hypertension
CPT/HCPCS: 71045; 74177; 80053; 81003; 83605; 83690; 84484; 85025; 93005; 96361; 96374; 99285; J2270; J7030; Q9967

== ENCOUNTER → 2022-03-24 12:44 | Outpatient (BNVA) | payer MEDICARE, SELFPAY | PROVIDERS: PCP Family Medicine; Visit Provider Nurse Practitioner Family | DX: Z20.822 Contact with and (suspected) exposure to COVID-19 (principal) | CPT/HCPCS: 87426 ==